=== PATIENT | female | born 1945 | race American Indian/Alaskan Native ===

== ENCOUNTER 2016-11-18 11:59 | Outpatient (CLI) | payer MEDICARE ==
[2016-11-18 12:36] LABS: Blood Urea Nitrogen 18 mg/dL (7-17)
--- NOTE | 2016-11-18 16:03 | Magnetic Resonance Report ---
FINAL REPORT PROCEDURE: MR BRAIN WO/W CON TECHNIQUE: Magnetic resonance imaging of the brain was performed before and after the IV injection of paramagnetic contrast. HISTORY: BENIGN NEOPLASM OF BRAIN COMPARISON: No prior studies are available for comparison. FINDINGS: There is been previous craniotomy left frontal region. Bone flap is in place. There is no evidence of intracranial hemorrhage. No parenchymal hemorrhage, mass lesions or mass effect are identified. No abnormal extra-axial fluid collections or masses are seen. No abnormal areas of enhancement are seen. There is small area of focal encephalomalacia in the left frontal lobe superior laterally. There is mild increased T2 signal in the periventricular and deep white matter suggesting areas of gliosis related to microvascular disease or white matter changes of aging. There is no enhancement. No abnormal areas of restricted diffusion are seen that would suggest an acute ischemic event. The corpus callosum, region of the pituitary fossa and the foramina magnum are unremarkable. Paranasal sinuses and mastoid air cells are clear.. IMPRESSION: Postsurgical changes left frontal region. There has been previous craniotomy. Bone flap is in place. There is a small area of encephalomalacia superior lateral aspect left frontal lobe. No residual mass, abnormal enhancement or hemorrhage is seen. There is mild gliosis. No other abnormalities are seen.
--- NOTE | 2016-11-18 16:10 | Magnetic Resonance Report ---
FINAL REPORT PROCEDURE: MR CERVICAL SPINE WO CON TECHNIQUE: Magnetic resonance imaging of the cervical spine was performed using standard pulse sequences without contrast material. HISTORY: OSTEOARTHRITIS OF CERVICAL SPINE, UNSPEC OSTEOARTHRITIS . Pain. COMPARISON: No prior studies are available for comparison. FINDINGS: The signal intensity and height of the vertebral bodies appears normal. No fracture or subluxation is seen. Region of the foramina magnum appears normal. The prevertebral soft tissues appear normal. There is degenerative signal in disc space narrowing at the C3-C4 level. There is a diffuse posterior disc bulge obscuring the anterior epidural space and resting against the anterior surface of the cervical cord with mild flattening visualized. No focal disc herniation is visualized. The neural foramina appear adequate. There is disc space narrowing and degenerative signal seen in the C4-5 disc space. Diffuse disc bulge is present obscuring the anterior epidural space without deforming the cord. No focal disc herniation is seen. The neural foramina appear adequate. Degenerative signal and disc height loss is visualized at C5-C6 there is no disc herniation or spinal stenosis. The neural foramina appear adequate. Degenerative signal and disc space narrowing is seen at C6-C7 with minimal posterior osteophytic ridging. There is no focal disc herniation or cord compression. The neural foramina on the left appears narrowed, the right appears adequate. Degenerative signal is visualized C7-T1 level without focal disc herniation spinal stenosis or cord compression. The neural foramina appear adequate. IMPRESSION: Diffuse degenerative disc changes are present. This is greatest at the C3-4 and C4-5 levels as described above. There is mild flattening or compression of the cervical cord at the C3-4 level secondary to a diffuse disc bulge. There is also diffuse disc bulge at the C4-5 level resting on the anterior surface of the cord without compressing the cord. The neural foramina on the left at C6-7 appears mildly stenotic. The remainder of the neural foramina appear adequate.
== END 2016-11-18 12:00 | disposition home or self-care (01) ==
LOC: MRI 11:59
PROVIDERS: ATTEND Neurological Surgery
DX: D32.9 Benign neoplasm of meninges, unspecified (principal); M47.12 Other spondylosis with myelopathy, cervical region; G93.89 Other specified disorders of brain; Z98.890 Other specified postprocedural states
CPT/HCPCS: 36415; 70553; 72141; 82565; 84520; A9577

== ENCOUNTER 2019-01-19 15:49 | Inpatient (IN) | payer MEDICARE ==
[2019-01-19] MEDS ORDERED: KEPPRA 1,000 MG/NS 0.75% 100ML 1,000 MG/100 ML BAG IV ONE (16:30)
--- NOTE | 2019-01-19 16:34 | Emergency Department Report ---
ED General Adult HPI - General Chief complaint: Hypoglycemia Stated complaint: CRAMPS Time Seen by Provider: 01/19/19 16:16 Source: patient, EMS (ems notes not available at time of chart dictation), RN notes reviewed, old records reviewed Mode of arrival: Stretcher Limitations: Altered Mental Status, Physical Limitation, Other (patient is awake. Patient follows commands. Patient does not recall what happened to her.) - History of Present Illness Initial comments: This is a 73-year-old female who is known to this provider previously. Past medical history includes hypertension, high cholesterol, diabetes, history of craniotomy, for "benign neoplasm of brain", admitted to this hospital 2017 for generalized weakness, found to be confused, hypoglycemic, and hypothermic. Today, the patient is brought to the hospital by emergency medical services because the patient's daughter reportedly indicated that the patient was not making sense on the phone. Upon EMS arrival, the patient was documented to be altered, with a blood glucose of 36 and diaphoretic. EMS also indicated that the house was very very hot, 90. Patient given 1 amp of D50 in route to the hospital, and repeat blood sugar in the emergency room 233. In the emergency room, the patient is awake, and states "I think I passed out." She does not murmur what happened specifically. Nobody is available at this point in time for information or collateral history. She denies headache, neck pain, chest pain, abdominal pain, shortness of breath. The patient reports that she feels globally weak. She's not sure how long been going on for. She cannot describe exacerbating or relieving factors, radiation. -: Sudden (today) Radiation: other Quality: other Consistency: other Improves with: other Worsens with: other Associated Symptoms: other - Related Data Home Medications Medication Instructions Recorded Confirmed Last Taken Aspirin [Aspirin BABY CHEW TAB] 81 mg PO QDAY 04/08/14 08/04/18 08/03/18 09:00 Cholecalciferol Vit D3 [Vitamin D3 5,000 unit PO QDAY 04/08/14 08/04/18 08/03/18 09:00 1,000 UNIT TAB] Cyanocobalamin (Vitamin B-12) 5,000 mcg SL DAILY 04/08/14 08/04/18 08/03/18 09:00 [Vitamin B-12] Gabapentin 300 mg PO TID 04/08/14 08/04/18 08/03/18 09:00 Losartan [Cozaar] 50 mg PO QDAY 04/08/14 08/04/18 08/03/18 09:00 levETIRAcetam [Keppra TAB] 500 mg PO BID 04/08/14 08/04/18 08/03/18 09:00 AtorvaSTATin [Lipitor] 40 mg PO QDAY 04/26/16 08/04/18 08/03/18 09:00 Allergies Allergy/AdvReac Type Severity Reaction Status Date / Time No Known Allergies Allergy Verified 07/29/14 11:27 ED Review of Systems ROS: Stated complaint: CRAMPS Other details as noted in HPI Comment: Unobtainable due to pts medical conditions Constitutional: malaise, weakness Eyes: denies: eye discharge Respiratory: denies: orthopnea Cardiovascular: denies: chest pain Gastrointestinal: denies: abdominal pain Neurological: weakness, confusion ED Past Medical Hx - Past Medical History Hx Hypertension: Yes (2007) Hx CVA: Yes (2012, 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) Hx Congestive Heart Failure: No Hx Diabetes: Yes Hx Seizures: Yes Hx Kidney Stones: Yes Hx HIV: No - Surgical History Hx Cholecystectomy: Yes ([place] 1989) Additional Surgical History: Tumor removed from brain 2012 - Social History Smoking Status: Never Smoker Substance Use Type: None - Medications Home Medications: Home Medications Medication Instructions Recorded Confirmed Last Taken Type Aspirin [Aspirin BABY CHEW TAB] 81 mg PO QDAY 04/08/14 08/04/18 08/03/18 09:00 History Cholecalciferol Vit D3 [Vitamin D3 5,000 unit PO QDAY 04/08/14 08/04/18 08/03/18 09:00 History 1,000 UNIT TAB] Cyanocobalamin (Vitamin B-12) 5,000 mcg SL DAILY 04/08/14 08/04/18 08/03/18 09:00 History [Vitamin B-12] Gabapentin 300 mg PO TID 04/08/14 08/04/18 08/03/18 09:00 History Losartan [Cozaar] 50 mg PO QDAY 04/08/14 08/04/18 08/03/18 09:00 History levETIRAcetam [Keppra TAB] 500 mg PO BID 04/08/14 08/04/18 08/03/18 09:00 History AtorvaSTATin [Lipitor] 40 mg PO QDAY 04/26/16 08/04/18 08/03/18 09:00 History ED Physical Exam - General Limitations: Physical Limitation General appearance: alert, anxious - Head Head exam: Present: atraumatic, normocephalic - Eye Eye exam: Present: normal appearance, PERRL, EOMI, other (visual acuity intact to finger counting, color perception, reading at a close distance). Absent: nystagmus - ENT ENT exam: Present: normal exam, normal orophraynx, mucous membranes moist, normal external ear exam - Neck Neck exam: Present: normal inspection, full ROM. Absent: tenderness, meningismus - Respiratory Respiratory exam: Present: normal lung sounds bilaterally. Absent: respiratory distress - Cardiovascular Cardiovascular Exam: Present: regular rate, normal rhythm, normal heart sounds. Absent: bradycardia, tachycardia, irregular rhythm, systolic murmur, diastolic murmur, rubs, gallop - GI/Abdominal GI/Abdominal exam: Present: soft. Absent: distended, tenderness, guarding, rebound, rigid, pulsatile mass - Extremities Exam Extremities exam: Present: normal inspection (the patient is able to move her bilateral hands and plantar and dorsiflex her bilateral feet. She appears to be keeping her upper and lower extremities in a locked position. When this provider attempts to range her upper or lower extremities passively, patient is noted to be flexing and resisting passive range of motion. She does this with 4 extremities.), other (2+ pulses noted in the bilateral upper, lower ex tremities. Compartments soft. No long bony tenderness. The pelvis is stable.). Absent: tenderness, pedal edema, joint swelling, calf tenderness - Back Exam Back exam: Present: normal inspection. Absent: tenderness, CVA tenderness (R), paraspinal tenderness, vertebral tenderness - Neurological Exam Neurological exam: Present: alert, oriented X3, other (there is no facial droop. The tongue is midline. Extraocular movements are intact bilaterally. There is 5 out of 5 senior product manager strength in the bilateral upper extremities. Patient has 5 out of 5 plantar flexion of the bilateral lower extremities. Sensation is intac t to light touch bilateral upper, lower extremities. The patient actively resists passive range of motion. She is speaking in complete sentences. She is stuttering. There is no dysarthria. There does not appear to be any aphasia) - Psychiatric Psychiatric exam: Present: anxious - Skin Skin exam: Present: warm, dry, intact, normal color. Absent: rash ED Course Vital Signs 01/19/19 01/19/19 15:55 16:53 Temperature 94 F L Pulse Rate 69 Respiratory 16 Rate Blood Pressure 190/88 O2 Sat by Pulse 99 Oximetry - Reevaluation(s) Reevaluation #1: 01/19/19 16:36 Differential diagnosis, including not limited to: Hypoglycemia, hypothermia, heat stroke, intracranial injury, cervical spine injury, electrolyte derangement, thyroid derangement, bacteremia Assessment and plan: 73-year-old female with history of altered mental status, questionable syncope, reported to be hypoglycemic, with bizarre neurologic examination. We will obtain CT scan of the brain, cervical spine, appropriate screening laboratory studies, x-ray of the chest, urinalysis, EKG, rectal temperature. We will have the patient evaluated by neurology once her initial diagnostics have resulted. She will be given D5 half-normal, and placed on fingersticks every 1 hour. Reevaluation #2: 01/19/19 18:02 CT scan of the brain, cervical spine negative for acute disease. Seen in consultation with neurology, Dr. Pruitt, who is in agreement with the current medical plan. Hospital physician, Dr. Karon Whitten, to admit. ED Medical Decision Making - Lab Data Result diagrams: 01/19/19 16:31 01/19/19 16:31 Vital Signs 01/19/19 15:55 Pulse Rate 69 Respiratory 16 Rate Blood Pressure 190/88 O2 Sat by Pulse 99 Oximetry Lab Results 01/19/19 Range/Units 16:13 POC Glucose 233 H (70-105) Vital Signs 01/19/19 01/19/19 15:55 16:53 Temperature 94 F L Pulse Rate 69 Respiratory 16 Rate Blood Pressure 190/88 O2 Sat by Pulse 99 Oximetry Lab Results 01/19/19 01/19/19 01/19/19 Range/Units 16:13 16:31 16:31 WBC 6.8 (4.5-11.0) K/mm3 RBC 3.97 (3.65-5.03) M/mm3 Hgb 13.0 (10.1-14.3) gm/dl Hct 38.4 (30.3-42.9) % MCV 97 (79-97) fl MCH 33 H (28-32) pg MCHC 34 (30-34) % RDW 13.0 L (13.2-15.2) % Plt Count 279 (140-440) K/mm3 Lymph % (Auto) 10.9 L (13.4-35.0) % [place] % (Auto) 7.9 H (0.0-7.3) % Eos % (Auto) 0.3 (0.0-4.3) % Baso % (Auto) 0.3 (0.0-1.8) % Lymph # 0.7 L (1.2-5.4) K/mm3 Coryell # 0.5 (0.0-0.8) K/mm3 Eos # 0.0 (0.0-0.4) K/mm3 Baso # 0.0 (0.0-0.1) K/mm3 Seg Neutrophils % 80.6 H (40.0-70.0) % Seg Neutrophils # 5.5 (1.8-7.7) K/mm3 PT 12.9 (12.2-14.9) Sec. INR 0.92 (0.87-1.13) APTT 24.3 (24.2-36.6) Sec. Thrombin Time 17.1 (15.1-19.6) Sec. POC Glucose 233 H (70-105) Ammonia (25-60) umol/L 01/19/19 Range/Units 16:31 WBC (4.5-11.0) K/mm3 RBC (3.65-5.03) M/mm3 Hgb (10.1-14.3) gm/dl Hct (30.3-42.9) % MCV (79-97) fl MCH (28-32) pg MCHC (30-34) % RDW (13.2-15.2) % Plt Count (140-440) K/mm3 Lymph % (Auto) (13.4-35.0) % Cory[place] % (Auto) (0.0-7.3) % Eos % (Auto) (0.0-4.3) % Baso % (Auto) (0.0-1.8) % Lymph # (1.2-5.4) K/mm3 Coryell # (0.0-0.8) K/mm3 Eos # (0.0-0.4) K/mm3 Baso # (0.0-0.1) K/mm3 Seg Neutrophils % (40.0-70.0) % Seg Neutrophils # (1.8-7.7) K/mm3 PT (12.2-14.9) Sec. INR (0.87-1.13) APTT (24.2-36.6) Sec. Thrombin Time (15.1-19.6) Sec. POC Glucose (70-105) Ammonia 35.0 (25-60) umol/L - EKG Data -: EKG Interpreted by Ar EKG shows normal: sinus rhythm Rate: normal - EKG Data 01/19/19 18:27 This is a normal sinus rhythm, 69 bpm, normal axis, QTC prolonged, motion artifact, Q waves in the inferior leads, this is an abnormal EKG. This is not consistent with ST elevation myocardial infarction - Radiology Data Radiology results: pending, report reviewed, image reviewed Referring Physician: MARGARITA LI Patient Name: ROSE APPIAH Date of : 1945 Sex: Female Report Date: 2019-01-19 Report Status: [place] [id number] Cat Scan Report Signed Patient: ROSE APPIAH MR#: [id number] : 1945 Acct:[id number] Age/Sex: 73 / F ADM Date: 01/19/19 Loc: ED Attending Dr: Ordering Physician: MARGARITA LI MD Date of Service: 01/19/19 Procedure(s): CT cervical spine wo con Accession Number(s): [id number] cc: MARGARITA LI MD PROCEDURE: CT CERVICAL SPINE WO CON TECHNIQUE: Computerized tomography of the cervical spine was performed from the skull base to T1 without contrast material. CT DOSE LENGTH PRODUCT: 561.2 mGycm HISTORY: fall ams COMPARISONS: MRI cervical spine dated November 18, 2016.. FINDINGS: There is straightening of the normal lordotic curve of the cervical spine. The vertebral heights are maintained. There is loss of height of the disc spaces throughout the cervical spine with relative sparing of the C2-C3 disc. This is similar in appearance to the previous study. There is multiple level degenerative facet change. There is multiple level bony canal and foraminal stenosis secondary to spondylitic change. Visualization of detail the contents of the cervical canal is limited by artifact. There is no evidence of fracture or subluxation. The paraspinous soft tissues are unremarkable. The right lobe of the thyroid is enlarged and heterogeneous in appearance similar in appearance to the previous MRI dated November 18, 2016. IMPRESSION: 1. No evidence of fracture or subluxation. 2. Cervical spondylosis with multiple level canal and foraminal stenosis secondary to spondylitic change. If the patient remains symptomatic, MRI may be helpful. 3. Enlarged heterogeneous appearance of the right lobe of the thyroid similar in appearance to the previous MRI dated November 18, 2016. This document is electronically signed by Mariann Daily MD., Jan 19 2019 05:31:58 PM ET Transcribed By: ED Dictated By: MARIANN DAILY MD Electronically Authenticated By: MARIANN DAILY MD Signed Date/Time: 01/19/19 590 Print Report Referring Physician: MARGARITA LI Patient Name: ROSE APPIAH Date of : 1945 Sex: Female Report Date: 2019-01-19 Report Status: Finalized Findings [address] [address] Cat Scan Report Signed Patient: ROSE APPIAH MR#: [id number] : 1945 Acct:[id number] Age/Sex: 73 / F ADM Date: 01/19/19 Loc: ED Attending Dr: Ordering Physician: MARGARITA LI MD Date of Service: 01/19/19 Procedure(s): CT head/brain wo con Accession Number(s): [id number] cc: MARGARITA LI MD PROCEDURE: CT HEAD/BRAIN WO CON TECHNIQUE: Computerized tomography of the head was performed without contrast material. CT DOSE LENGTH PRODUCT: 805.4 mGycm HISTORY: Stroke symptoms COMPARISONS: None . FINDINGS: Unenhanced CT of the brain was performed and compared to the prior examination of August 13, 2018. These images demonstrate no acute intracranial hemorrhage, extra-axial fluid collection, midline shift or mass effect. The ventricles and basal cisterns are not effaced. There has been a prior left frontal craniotomy and there is focal encephalomalacia The left posterior frontal lobe, likely postproc edural. No acute infarct is seen. MRI may be considered if patient has persistent symptomatology. The mastoid air cells and middle ears appear clear. There is sinus mucosal thickening without acute sinusitis. IMPRESSION: No acute intracranial hemorrhage This document is electronically signed by Craig Ashley MD., Jan 19 2019 05:27:17 PM ET Transcribed By: LOTTIE Dictated By: CRAIG ASHLEY MD Electronically Authenticated By: CRAIG ASHLEY MD Signed Date/Time: 01/19/19 1729 Print Report Referring Physician: MARGARITA LI Patient Name: ROSE APPIAH Date of : 1945 Sex: Female Report Date: 2019-01-19 Report Status: [place] [id number] XRay Report Signed Patient: ROSE APPIAH MR#: [id number] : 1945 Acct:[id number] Age/Sex: 73 / F ADM Date: 01/19/19 Loc: ED Attending Dr: Ordering Physician: MARGARITA LI MD Date of Service: 01/19/19 Procedure(s): XR chest 1V ap Accession Number(s): [id number] cc: MARGARITA LI MD Fluoro Time In Minutes: PROCEDURE: XR CHEST 1V AP TECHNIQUE: Chest radiograph single view. HISTORY: weak ams hypoglycemia COMPARISONS: Chest x-ray dated August 03, 2018 . FINDINGS: There is prominence of the interstitial markings in both lungs similar in appearance to the previous study. There is a small, approximately 7 mm, nodular density projected in the left lateral costop hrenic angle that is similar in appearance to the previous study. Whether or not this is in the lung or bone is unclear. The cardiac silhouette appears to be upper limits of normal size. The thoracic aorta is tortuous. The bony structures are unremarkable. Surgical clips in the right upper quadrant are consistent with previous cholecystectomy. IMPRESSION: 1. No evidence of an acute pulmonary process. 2. Appearance of approximately 7 mm nodular density projected in the left lateral costophrenic angle. Whether or not this is in the lung or bone is unclear. This is similar in appearance to the previous chest x-ray dated August 03, 2018. CT chest may be helpful for further evaluation. This document is electronically signed by Mariann Daily MD., Jan 19 2019 05:06:57 PM ET Transcribed By: ED Dictated By: MARIANN DAILY MD Electronically Authenticated By: MARIANN DAILY MD Signed Date/Time: 01/19/19 8184 Critical care attestation.: If time is entered above; I have spent that time in minutes in the direct care of this critically ill patient, excluding procedure time. ED Disposition Clinical Impression: History of hypoglycemia, Encephalopathy Hypothermia Qualifiers: Encounter type: initial encounter Qualified Code(s): T68.XXXA - Hypothermia, initial encounter Altered mental status Qualifiers: Altered mental status type: unspecified Qualified Code(s): R41.82 - Altered mental status, unspecified Disposition: DC-09 OP ADMIT IP TO THIS HOSP Is pt being admited?: Yes Condition: Fair Referrals: PRIMARY CARE, [Referring] - 3-5 Days
[2019-01-19] MEDS ORDERED: D5/0.45NS 1,000 ML IV SCH (17:00)
[2019-01-19] MEDS ORDERED: ROCEPHIN/NS 1 GM/50 ML 1 GM/50 ML BAG IV ONE (17:02)
[2019-01-19 17:04] LABS: Basophils % (Auto) 0.3 % (0.0-1.8); Eosinophils % (Auto) 0.3 % (0.0-4.3); Hematocrit 38.4 % (30.3-42.9); Lymphocytes # (Auto) 0.7 K/mm3 (1.2-5.4); Lymphocytes % (Auto) 10.9 % (13.4-35.0); Mean Corpuscular HGB Conc 34 % (30-34); Mean Corpuscular Volume 97 fl (79-97); Monocytes # (Auto) 0.5 K/mm3 (0.0-0.8); Monocytes % (Auto) 7.9 % (0.0-7.3); Platelet Count 279 K/mm3 (140-440); Red Blood Count 3.97 M/mm3 (3.65-5.03)
[2019-01-19 17:06] LABS: INR 0.92 (0.87-1.13)
[2019-01-19 17:07] LABS: Partial Thromboplastin Time 24.3 Sec. (24.2-36.6); Thrombin Time 17.1 Sec. (15.1-19.6)
--- NOTE | 2019-01-19 17:08 | XRay Report ---
PROCEDURE: XR CHEST 1V AP TECHNIQUE: Chest radiograph single view. HISTORY: weak ams hypoglycemia COMPARISONS: Chest x-ray dated August 03, 2018 . FINDINGS: There is prominence of the interstitial markings in both lungs similar in appearance to the previous study. There is a small, approximately 7 mm, nodular density projected in the left lateral costophrenic angl e that is similar in appearance to the previous study. Whether or not this is in the lung or bone is unclear. The cardiac silhouette appears to be upper limits of normal size. The thoracic aorta is tortuous. The bony structures are unremarkable. Surgical clips in the right upper quadrant are consistent with previous cholecystectomy. IMPRESSION: 1. No evidence of an acute pulmonary process. 2. Appearance of approximately 7 mm nodular density projected in the left lateral costophrenic angle. Whether or not this is in the lung or bone is unclear. This is similar in appearance to the previous chest x-ray dated August 03, 2018. CT chest may be helpful for further evaluation. This document is electronically signed by Mariann Daily MD., Jan 19 2019 05:06:57 PM ET
[2019-01-19 17:13] LABS: Alanine Aminotransferase 14 units/L (7-56); BUN/Creatinine Ratio 14; Blood Urea Nitrogen 15 mg/dL (7-17); Calcium 8.7 mg/dL (8.4-10.2); Hemolysis Index 3
--- NOTE | 2019-01-19 17:29 | Cat Scan Report ---
PROCEDURE: CT HEAD/BRAIN WO CON TECHNIQUE: Computerized tomography of the head was performed without contrast material. CT DOSE LENGTH PRODUCT: 805.4 mGycm HISTORY: Stroke symptoms COMPARISONS: None . FINDINGS: Unenhanced CT of the brain was performed and compared to the prior examination of August 13, 2018. These images demonstrate no acute intracranial hemorrhage, extra-axial fluid collection, midline shif t or mass effect. The ventricles and basal cisterns are not effaced. There has been a prior left frontal craniotomy and there is focal encephalomalacia The left posterior frontal lobe, likely postprocedural. No acute infarct is seen. MRI may be considered if patient has persistent symptomatology. The mastoid air cells and middle ears appear clear. There is sinus mucosal thickening without acute s inusitis. IMPRESSION: No acute intracranial hemorrhage This document is electronically signed by Craig Ashley MD., Jan 19 2019 05:27:17 PM ET
--- NOTE | 2019-01-19 17:34 | Cat Scan Report ---
PROCEDURE: CT CERVICAL SPINE WO CON TECHNIQUE: Computerized tomography of the cervical spine was performed from the skull base to T1 wit hout contrast material. CT DOSE LENGTH PRODUCT: 561.2 mGycm HISTORY: fall ams COMPARISONS: MRI cervical spine dated November 18, 2016.. FINDINGS: There is straightening of the normal lordotic curve of the cervical spine. The vertebral heights are maintained. There is loss of height of the disc spaces throughout the cervical spine with relative sparing of the C2-C3 disc. This is similar in appearance to the previous study. There is multiple level degenerative facet change. There is multiple level bony canal and foraminal stenosis secondary to spondylitic change. Visualization of detail the contents of the cervical canal is limited by artifact. There is no evidence of fracture or subluxation. The paraspinous soft tissues are unremarkable. The right lobe of the thyroid is enlarged and heterogeneous in appearance similar in appearance to th e previous MRI dated November 18, 2016. IMPRESSION: 1. No evidence of fracture or subluxation. 2. Cervical spondylosis with multiple level canal and foraminal stenosis secondary to spondylitic josue nge. If the patient remains symptomatic, MRI may be helpful. 3. Enlarged heterogeneous appearance of the right lobe of the thyroid similar in appearance to the pr evious MRI dated November 18, 2016. This document is electronically signed by Mariann Daily MD., Jan 19 2019 05:31:58 PM ET
--- NOTE | 2019-01-19 17:47 | Emergency Department Report ---
ED General Adult HPI - General Chief complaint: Hypoglycemia Stated complaint: CRAMPS Time Seen by Provider: 01/19/19 16:16 Source: patient, EMS (ems notes not available at time of chart dictation), RN notes reviewed, old records reviewed Mode of arrival: Stretcher Limitations: Physical Limitation - History of Present Illness Initial comments: [facility] Date of service: 01/19/2019 Impression: 73 year old female with diabetes who presented with altered mental status in the setting of hypoglycemia and hypothermia. Presentation is likely secondary to metabolic/infectious encephalopathy. Recommendations: -metabolic/infectious work-up per primary team -IV fluids -PT/OT -Continue home Keppra 500 mg BID CC: Encephalopathy History of Present Illness: 73 year old female with a history of prior meningioma on Keppra and diabetes who presented to the hospital because of altered mental status. When EMS arrived patient had a glucose of 37 and she had a rectal temp of 94. Diagnostic Testing: CT brain w/o contrast: no acute hemorrhage or large territory stroke. Vital Signs: Reviewed in EMR Exam: Mental Status: Awake, alert, oriented Naming: Intact Repetition: Intact Speech: fluent Cranial Nerves: Pupils: Equal round and reactive to light Extraocular movements: Intact in all cardinal gaze Ptosis: Absent Visual cornelius: Intact to finger counting Facial sensation: Intact to pin and light touch Facial movements: Intact and symmetric Motor Exam: Stiffness in both arms but lifts against gravity. Withdraws from noxious stimuli in both legs Tremor/Abnormal Movements: Resting tremor: Absent Intention tremor: Absent Postural tremor: Absent Sensory Exam: Light touch: Intact Medical Decision Making: - Extensive number of diagnosis or management options are considered above. - Extensive amount of complex data reviewed. - High risk of complication and/or morbidity or mortality are associated with differential diagnostic considerations above. - There may be uncertain outcome and increased probability of prolonged fun ctional impairment or high probability of severe prolonged functional impairment associated with some of these differential diagnosis. Medical Data Reviewed: 1.Data reviewed include clinical labs, radiology, Medical Tests; 2.Tests results discussed w/performing or interpreting physician; 3.Obtaining/reviewing old medical records; 4.Obtaining case history from another source; 5.Independent review of image, tracing or specimen. Patient was informed the Neurology Consult would happen via telehealth (remote video) and consented to receiving care in this manner. Quality: other Improves with: other Worsens with: other Associated Symptoms: other - Related Data Home Medications Medication Instructions Recorded Confirmed Last Taken Aspirin [Aspirin BABY CHEW TAB] 81 mg PO QDAY 04/08/14 08/04/18 08/03/18 09:00 Cholecalciferol Vit D3 [Vitamin D3 5,000 unit PO QDAY 04/08/14 08/04/18 08/03/18 09:00 1,000 UNIT TAB] Cyanocobalamin (Vitamin B-12) 5,000 mcg SL DAILY 04/08/14 08/04/18 08/03/18 09:00 [Vitamin B-12] Gabapentin 300 mg PO TID 04/08/14 08/04/18 08/03/18 09:00 Losartan [Cozaar] 50 mg PO QDAY 04/08/14 08/04/18 08/03/18 09:00 levETIRAcetam [Keppra TAB] 500 mg PO BID 04/08/14 08/04/18 08/03/18 09:00 AtorvaSTATin [Lipitor] 40 mg PO QDAY 04/26/16 08/04/18 08/03/18 09:00 Allergies Allergy/AdvReac Type Severity Reaction Status Date / Time No Known Allergies Allergy Verified 07/29/14 11:27 ED Review of Systems ROS: Stated complaint: CRAMPS Other details as noted in HPI Constitutional: malaise, weakness Eyes: denies: eye discharge Respiratory: denies: orthopnea Cardiovascular: denies: chest pain Gastrointestinal: denies: abdominal pain Neurological: weakness, confusion ED Past Medical Hx - Past Medical History Hx Hypertension: Yes (2007) Hx CVA: Yes (2012, 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) Hx Congestive Heart Failure: No Hx Diabetes: Yes Hx Seizures: Yes Hx Kidney Stones: Yes Hx HIV: No - Surgical History Hx Cholecystectomy: Yes ([place] 1989) Additional Surgical History: Tumor removed from brain 2012 - Social History Smoking Status: Never Smoker Substance Use Type: None - Medications Home Medications: Home Medications Medication Instructions Recorded Confirmed Last Taken Type Aspirin [Aspirin BABY CHEW TAB] 81 mg PO QDAY 04/08/14 08/04/18 08/03/18 09:00 History Cholecalciferol Vit D3 [Vitamin D3 5,000 unit PO QDAY 04/08/14 08/04/18 08/03/18 09:00 History 1,000 UNIT TAB] Cyanocobalamin (Vitamin B-12) 5,000 mcg SL DAILY 04/08/14 08/04/18 08/03/18 0 9:00 History [Vitamin B-12] Gabapentin 300 mg PO TID 04/08/14 08/04/18 08/03/18 09:00 History Losartan [Cozaar] 50 mg PO QDAY 04/08/14 08/04/18 08/03/18 09:00 History levETIRAcetam [Keppra TAB] 500 mg PO BID 04/08/14 08/04/18 08/03/18 09:00 History AtorvaSTATin [Lipitor] 40 mg PO QDAY 04/26/16 08/04/18 08/03/18 09:00 History ED Physical Exam - General Limitations: Physical Limitation General appearance: alert, anxious ED Course Vital Signs 01/19/19 01/19/19 15:55 16:53 Temperature 94 F L Pulse Rate 69 Respiratory 16 Rate Blood Pressure 190/88 O2 Sat by Pulse 99 Oximetry ED Medical Decision Making - Lab Data Result diagrams: 01/19/19 16:31 01/19/19 16:31 Critical care attestation.: If time is entered above; I have spent that time in minutes in the direct care of this critically ill patient, excluding procedure time. ED Disposition Clinical Impression: Encephalopathy, History of hypoglycemia Disposition: OP ADMIT IP TO THIS HOSP Is pt being admited?: Yes Condition: Fair Referrals: PRIMARY CARE,MD [Primary Care Provider] - 3-5 Days
[2019-01-19 19:56] LABS: Bacteria,Urine 1+ /HPF (Negative); Bilirubin,Urine NEG (Negative); Blood,Urine NEG (Negative); Color,Urine Yellow (Yellow); Protein,Urine <15 mg/dL mg/dL (Negative); Urobilinogen,Urine < 2.0 mg/dL (<2.0)
--- NOTE | 2019-01-19 20:10 | History and Physical Report ---
History of Present Illness Date of examination: 01/19/19 Date of admission: 01/19/19 18:05 Chief complaint: Altered sensorium for few hours History of present illness: 73 y/o AAF patient brought to the hospital by emergency medical services because the patient's daughter reportedly indicated that the patient was not making sense on the phone. Upon EMS arrival, the patient was documented to be altered, with a blood glucose of 36 and diaphoretic. EMS also indicated that the house was very very hot, 90F Patient given 1 amp of D50 in route to the hospital, and repeat blood sugar in the emergency room 233. During my examination patient was at baseline,cheerful with daughter at bedside.Apparently took her insulinbut did not eat.Ate some cabbage.Now feels normal Past Medical History Hypertension: Yes (2007) CVA: Yes (2012, 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) Diabetes: Yes Seizures: Yes Kidney Stones: Yes Surgical History Cholecystectomy: Yes ([place] 1989) Additional Surgical History: Tumor removed from brain 2012 Social History Smoking Status: Never Smoker Substance Use Type: None Medications Home Medications: Home Medications Medication Instructions Recorded Confirmed Last Taken Type Aspirin [Aspirin BABY CHEW TAB] 81 mg PO QDAY 04/08/14 08/04/18 08/03/18 09:00 History Cholecalciferol Vit D3 [Vitamin D3 5,000 unit PO QDAY 04/08/14 08/04/18 08/03/18 09:00 History 1,000 UNIT TAB] Cyanocobalamin (Vitamin B-12) 5,000 mcg SL DAILY 04/08/14 08/04/18 08/03/18 09:00 History [Vitamin B-12] Gabapentin 300 mg PO TID 04/08/14 08/04/18 08/03/18 09:00 History Losartan [Cozaar] 50 mg PO QDAY 04/08/14 08/04/18 08/03/18 09:00 History levETIRAcetam [Keppra TAB] 500 mg PO BID 04/08/14 08/04/18 08/03/18 09:00 History AtorvaSTATin [Lipitor] 40 mg PO QDAY 04/26/16 08/04/18 08/03/18 09:00 History Review of Systems ROS: Stated complaint: CRAMPS Other details as noted in HPI Comment: Unobtainable due to pts medical conditions Constitutional: malaise, weakness Eyes: denies: eye discharge Respiratory: denies: orthopnea Cardiovascular: denies: chest pain Gastrointestinal: denies: abdominal pain Neurological: weakness, confusion Medications and Allergies Allergies Allergy/AdvReac Type Severity Reaction Status Date / Time No Known Allergies Allergy Verified 07/29/14 11:27 Home Medications Medication Instructions Recorded Confirmed Last Taken Type Aspirin [Aspirin BABY CHEW TAB] 81 mg PO QDAY 04/08/14 08/04/18 08/03/18 09:00 History Cholecalciferol Vit D3 [Vitamin D3 5,000 unit PO QDAY 04/08/14 08/04/18 08/03/18 09:00 History 1,000 UNIT TAB] Cyanocobalamin (Vitamin B-12) 5,000 mcg SL DAILY 04/08/14 08/04/18 08/03/18 09:00 History [Vitamin B-12] Gabapentin 300 mg PO TID 04/08/14 08/04/18 08/03/18 09:00 History Losartan [Cozaar] 50 mg PO QDAY 04/08/14 08/04/18 08/03/18 09:00 History levETIRAcetam [Keppra TAB] 500 mg PO BID 04/08/14 08/04/18 08/03/18 09:00 History AtorvaSTATin [Lipitor] 40 mg PO QDAY 04/26/16 08/04/18 08/03/18 09:00 History Active Meds: Active Medications Dextrose/Sodium Chloride (D5/0.45ns) 1,000 mls @ 0 mls/hr IV DIRECT CORRINE Last Admin: 01/19/19 18:13 Dose: 999 mls/hr Documented by: Exam - Constitutional Vitals: Temp Pulse Resp BP Pulse Ox 96.2 F L 68 16 167/81 97 01/19/19 19:33 01/19/19 20:04 01/19/19 20:04 01/19/19 20:04 01/19/19 20:04 General appearance: Present: no acute distress, well-nourished - EENT Eyes: Present: PERRL ENT: hearing intact, clear oral mucosa - Neck Neck: Present: supple, normal ROM - Respiratory Respiratory effort: normal Respiratory: bilateral: CTA - Cardiovascular Heart rate: 78 Rhythm: regular Heart Sounds: Present: S1 & S2. Absent: rub, click - Extremities Extremities: no ischemia, pulses intact, pulses symmetrical, No edema Peripheral Pulses: within normal limits - Abdominal General gastrointestinal: Present: soft, non-tender, non-distended, normal bowel sounds Female genitourinary: Present: normal - Integumentary Integumentary: Present: clear, warm, dry - Musculoskeletal Musculoskeletal: gait normal, strength equal bilaterally - Psychiatric Psychiatric: appropriate mood/affect, intact judgment & insight - Neurologic Neurologic: CNII-XII intact, moves all extremities - Allied Health Allied health notes reviewed: nursing, case management Results - Labs CBC & Chem 7: 01/20/19 02:15 01/20/19 02:15 Labs: Laboratory Last Values WBC 6.8 K/mm3 (4.5-11.0) 01/19/19 16:31 RBC 3.97 M/mm3 (3.65-5.03) 01/19/19 16:31 Hgb 13.0 gm/dl (10.1-14.3) 01/19/19 16:31 Hct 38.4 % (30.3-42.9) 01/19/19 16:31 MCV 97 fl (79-97) 01/19/19 16:31 MCH 33 pg (28-32) H 01/19/19 16:31 MCHC 34 % (30-34) 01/19/19 16:31 RDW 13.0 % (13.2-15.2) L 01/19/19 16:31 Plt Count 279 K/mm3 (140-440) 01/19/19 16:31 Lymph % (Auto) 10.9 % (13.4-35.0) L 01/19/19 16:31 [place] % (Auto) 7.9 % (0.0-7.3) H 01/19/19 16:31 Eos % (Auto) 0.3 % (0.0-4.3) 01/19/19 16:31 Baso % (Auto) 0.3 % (0.0-1.8) 01/19/19 16:31 Lymph # 0.7 K/mm3 (1.2-5.4) L 01/19/19 16:31 [place] # 0.5 K/mm3 (0.0-0.8) 01/19/19 16:31 Eos # 0.0 K/mm3 (0.0-0.4) 01/19/19 16:31 Baso # 0.0 K/mm3 (0.0-0.1) 01/19/19 16:31 Seg Neutrophils % 80.6 % (40.0-70.0) H 01/19/19 16:31 Seg Neutrophils # 5.5 K/mm3 (1.8-7.7) 01/19/19 16:31 PT 12.9 Sec. (12.2-14.9) 01/19/19 16:31 INR 0.92 (0.87-1.13) 01/19/19 16:31 APTT 24.3 Sec. (24.2-36.6) 01/19/19 16:31 17.1 Sec. (15.1-19.6) 01/19/19 16:31 Sodium 137 mmol/L (137-145) 01/19/19 16:31 Potassium 4.5 mmol/L (3.6-5.0) 01/19/19 16:31 Chloride 99.8 mmol/L (98-107) 01/19/19 16:31 Carbon Dioxide 23 mmol/L (22-30) 01/19/19 16:31 19 mmol/L 01/19/19 16:31 BUN 15 mg/dL (7-17) 01/19/19 16:31 1.1 mg/dL (0.7-1.2) 01/19/19 16:31 Estimated GFR 59 ml/min 01/19/19 16:31 14 % 01/19/19 16:31 Glucose 245 mg/dL (65-100) H 01/19/19 16:31 POC Glucose 408 (70-105) H 01/19/19 18:48 Lactic Acid 2.80 mmol/L (0.7-2.0) H* 01/19/19 19:20 Calcium 8.7 mg/dL (8.4-10.2) 01/19/19 16:31 0.40 mg/dL (0.1-1.2) 01/19/19 16:31 AST 16 units/L (5-40) 01/19/19 16:31 ALT 14 units/L (7-56) 01/19/19 16:31 184 units/L (35-129) H 01/19/19 16:31 35.0 umol/L (25-60) 01/19/19 16:31 < 0.010 ng/mL (0.00-0.029) 01/19/19 16:31 7.6 g/dL (6.3-8.2) 01/19/19 16:31 4.0 g/dL (3.9-5) 01/19/19 16:31 1.1 % 01/19/19 16:31 TSH 2.210 mlU/mL (0.270-4.200) 01/19/19 16:31 Free T4 0.92 ng/dL (0.76-1.46) 01/19/19 16:31 Neg (Negative) 01/19/19 Unknown 2.0 /HPF (0.0-6.0) 01/19/19 Unknown U Epithel Cells (Auto) 1.0 /HPF (0-13.0) 01/19/19 Unknown Salicylates < 0.3 mg/dL (2.8-20.0) L 01/19/19 16:31 Acetaminophen < 5.0 ug/mL (10.0-30.0) L 01/19/19 16:31 Plasma/Serum Alcohol < 0.01 % (0-0.07) 01/19/19 16:31 - Imaging and Cardiology EKG: report reviewed (NSR ) CT Scan - head: report reviewed (NAF) Imaging and Cardiology: CXR IMPRESSION: 1. No evidence of an acute pulmonary process. 2. Appearance of approximately 7 mm nodular density projected in the left lateral costophrenic angle. Whether or not this is in the lung or bone is unclear. This is similar in appearance to the previous chest x-ray dated August 03, 2018. CT chest may be helpful for further evaluation. CT C spine IMPRESSION: 1. No evidence of fracture or subluxation. 2. Cervical spondylosis with multiple level canal and foraminal stenosis secondary to spondylitic change. If the patient remains symptomatic, MRI may be helpful. 3. Enlarged heterogeneous appearance of the right lobe of the thyroid similar in appearance to the previous MRI dated November 18, 2016. Assessment and Plan Advance Directives: Yes (Full code) VTE prophylaxis?: Chemical Plan of care discussed with patient/family: Yes - Patient Problems (1) Encephalopathy Current Visit: Yes Status: Acute Plan to address problem: Sec to Hypoglycemia Parsisted for 2 to 3 ours Now resolved (2) Hypoglycemia Current Visit: Yes Status: Acute Plan to address problem: Sec to insulin and not eating (3) Sepsis Current Visit: Yes Status: Acute Plan to address problem: Unlokely Elevated Lactic acid sec to Hypoglycemia and Hypothermia Patient at baseline Alert and cheerful Empiric Rocephin No source of infection Descalate tomorrow if necessary (4) IDDM (insulin dependent diabetes mellitus) Current Visit: Yes Status: Chronic Plan to address problem: Coverage for now (5) HTN (hypertension) Current Visit: Yes Status: Chronic Qualifiers: Hypertension type: essential hypertension Qualified Code(s): I10 - Essential (primary) hypertension Plan to address problem: Cont antihypertensives (6) Hypothermia Current Visit: Yes Status: Acute Qualifiers: Encounter type: initial encounter Qualified Code(s): T68.XXXA - Hypothermia, initial encounter Plan to address problem: Resolved Sec to Hypoglycemia (7) Pulmonary nodule Current Visit: Yes Status: Chronic Plan to address problem: Stable No CT chest ordered This radiologist has propensity to overread and suggest further studies Will defer to primary team (8) Peripheral neuropathy Current Visit: Yes Status: Chronic Qualifiers: Peripheral neuropathy type: polyneuropathy, unspecified Qualified Code(s): G62.9 - Polyneuropathy, unspecified Plan to address problem: COnt Gabapentin (9) DVT prophylaxis Current Visit: Yes Status: Acute Plan to address problem: On Lovenox and GI prophylaxis
[2019-01-19] MEDS ORDERED: ZOFRAN IV PRN (20:13)
[2019-01-19] MEDS ORDERED: SODIUM CHLORIDE FLUSH SYRINGE 10 ML IV PRN (20:13)
[2019-01-19] MEDS ORDERED: TYLENOL PO PRN (20:13)
[2019-01-19] MEDS ORDERED: PERCOCET 5/325 PO PRN (20:14)
[2019-01-19] MEDS ORDERED: REGLAN IV PRN (20:14)
[2019-01-19] MEDS ORDERED: MORPHINE IV PRN (20:14)
[2019-01-19] MEDS ORDERED: LOSARTAN 50 MG PO SCH (20:15)
[2019-01-19] MEDS ORDERED: CYANOCOBALAMIN 5000 MCG SL SCH (20:15)
[2019-01-19] MEDS ORDERED: D5NS 1,000 ML IV SCH (21:00)
[2019-01-19] MEDS: PEPCID IV SCH (21:57)
[2019-01-19] MEDS: KEPPRA PO SCH (21:58)
[2019-01-19] MEDS: COZAAR PO SCH (21:59)
[2019-01-19] MEDS: BABY ASPIRIN PO SCH (21:59)
[2019-01-19] MEDS: VITAMIN D3 PO SCH (21:59)
[2019-01-19] MEDS ORDERED: PEPCID IV SCH (22:00)
[2019-01-19] MEDS: SODIUM CHLORIDE FLUSH SYRINGE 10 ML IV SCH (22:00)
[2019-01-19] MEDS: HumaLOG SUB-Q SCH (22:07)
[2019-01-20 02:24] LABS: Basophils % (Auto) 0.5 % (0.0-1.8); Eosinophils # (Auto) 0.1 K/mm3 (0.0-0.4); Eosinophils % (Auto) 0.8 % (0.0-4.3); Hemoglobin 12.7 gm/dl (10.1-14.3); Lymphocytes # (Auto) 1.9 K/mm3 (1.2-5.4); Lymphocytes % (Auto) 27.9 % (13.4-35.0); Mean Corpuscular HGB Conc 33 % (30-34); Mean Corpuscular Volume 98 fl (79-97); Monocytes # (Auto) 0.7 K/mm3 (0.0-0.8); Monocytes % (Auto) 10.6 % (0.0-7.3); Platelet Count 280 K/mm3 (140-440); Red Blood Count 3.88 M/mm3 (3.65-5.03); Red Cell Distribution Width 13.4 % (13.2-15.2)
[2019-01-20 02:47] LABS: Alanine Aminotransferase 13 units/L (7-56); Albumin 3.8 g/dL (3.9-5); BUN/Creatinine Ratio 12; Blood Urea Nitrogen 11 mg/dL (7-17); Calcium 8.8 mg/dL (8.4-10.2); Hemolysis Index 36
[2019-01-20] MEDS: HumaLOG SUB-Q SCH ×4 (07:47→21:47)
[2019-01-20] MEDS: VITAMIN D3 PO SCH ×2 (09:42→10:29)
[2019-01-20] MEDS: BABY ASPIRIN PO SCH (09:43)
[2019-01-20] MEDS: NEURONTIN PO SCH ×3 (09:43→21:40)
[2019-01-20] MEDS: PEPCID IV SCH ×2 (09:44→21:41)
[2019-01-20] MEDS: KEPPRA PO SCH ×2 (09:44→21:40)
[2019-01-20] MEDS: COZAAR PO SCH (09:44)
[2019-01-20] MEDS: ROCEPHIN/NS 2 GM/100 ML 2 GM/100 ML BAG IV SCH ×2 (10:31→13:45)
--- NOTE | 2019-01-20 11:27 | Progress Note ---
Assessment and Plan Assessment and plan: 73-year-old woman who was brought by her daughter because she was not making sense on the phone. She had altered mentation, she was found to be hypoglycemic with glucose of 36 and diaphoretic. PMH; hypertension, CVA, history of brain surgery for tumor removal, diabetes, seizure disorder, nephrolithiasis takes insulin 70/30 at home 25 units in am, 10 units in pm Hypoglycemia in a type 2 DM A1c is 10.8, insulin sliding scale, dextrose as needed, TSH within normal limits SIRS hypothermia, LA, likely due to hypoglycemia, UA, chest x-ray negative, blood cultures negative to date HTN cont BP meds Periphearl neuropathy cont gabapentin dvt ppx -lovenox History Interval history: Review of systems Constitutional: No fevers, no malaise, no joint pains CVS: No chest pain, no orthopnea, no pedal edema GI: No abdominal pain, no diarrhea, no vomiting, no constipation Respiratory: No shortness of breath, no wheezing, no coughing Hospitalist Physical - Physical exam Narrative exam: General.: Appears well, no distress, nontoxic HEENT: Moist mucous membranes, extraocular muscles intact, no lymphadenopathy Neck: supple Cardiac: S1-S2 heard Lungs: clear to auscultation bilaterally Abdomen: soft , nontender, nondistended, bowel sounds positive Extremities: no edema clubbing or cyanosis Skin: no rash or lesions Neurologic: no gross focal deficits Psych: calm, and cooperative - Constitutional Vitals: Temp Pulse Resp BP Pulse Ox 97.8 F 76 18 163/81 95 01/20/19 10:52 01/20/19 10:52 01/20/19 10:52 01/20/19 10:52 01/20/19 10:52 General appearance: Present: no acute distress, well-nourished Results - Labs CBC & Chem 7: 01/20/19 02:15 01/20/19 02:15 Labs: Laboratory Last Values WBC 6.8 K/mm3 (4.5-11.0) 01/20/19 02:15 RBC 3.88 M/mm3 (3.65-5.03) 01/20/19 02:15 Hgb 12.7 gm/dl (10.1-14.3) 01/20/19 02:15 Hct 38.0 % (30.3-42.9) 01/20/19 02:15 MCV 98 fl (79-97) H 01/20/19 02:15 MCH 33 pg (28-32) H 01/20/19 02:15 MCHC 33 % (30-34) 01/20/19 02:15 RDW 13.4 % (13.2-15.2) 01/20/19 02:15 Plt Count 280 K/mm3 (140-440) 01/20/19 02:15 Lymph % (Auto) 27.9 % (13.4-35.0) 01/20/19 02:15 [place] % (Auto) 10.6 % (0.0-7.3) H 01/20/19 02:15 Eos % (Auto) 0.8 % (0.0-4.3) 01/20/19 02:15 Baso % (Auto) 0.5 % (0.0-1.8) 01/20/19 02:15 Lymph # 1.9 K/mm3 (1.2-5.4) 01/20/19 02:15 [place] # 0.7 K/mm3 (0.0-0.8) 01/20/19 02:15 Eos # 0.1 K/mm3 (0.0-0.4) 01/20/19 02:15 Baso # 0.0 K/mm3 (0.0-0.1) 01/20/19 02:15 Seg Neutrophils % 60.2 % (40.0-70.0) 01/20/19 02:15 Seg Neutrophils # 4.1 K/mm3 (1.8-7.7) 01/20/19 02:15 PT 12.9 Sec. (12.2-14.9) 01/19/19 16:31 INR 0.92 (0.87-1.13) 01/19/19 16:31 APTT 24.3 Sec. (24.2-36.6) 01/19/19 16:31 17.1 Sec. (15.1-19.6) 01/19/19 16:31 Sodium 142 mmol/L (137-145) 01/20/19 02:15 Potassium 4.1 mmol/L (3.6-5.0) 01/20/19 02:15 Chloride 103.0 mmol/L (98-107) 01/20/19 02:15 Carbon Dioxide 24 mmol/L (22-30) 01/20/19 02:15 19 mmol/L 01/20/19 02:15 BUN 11 mg/dL (7-17) 01/20/19 02:15 0.9 mg/dL (0.7-1.2) 01/20/19 02:15 Estimated GFR > 60 ml/min 01/20/19 02:15 12 % 01/20/19 02:15 Glucose 236 mg/dL (65-100) H 01/20/19 02:15 POC Glucose 204 (70-105) H 01/20/19 10:54 10.8 % (4-6) H 01/19/19 20:45 Lactic Acid 1.50 mmol/L (0.7-2.0) 01/20/19 07:01 Calcium 8.8 mg/dL (8.4-10.2) 01/20/19 02:15 0.30 mg/dL (0.1-1.2) 01/20/19 02:15 AST 16 units/L (5-40) 01/20/19 02:15 ALT 13 units/L (7-56) 01/20/19 02:15 172 units/L (35-129) H 01/20/19 02:15 35.0 umol/L (25-60) 01/19/19 16:31 < 0.010 ng/mL (0.00-0.029) 01/19/19 16:31 7.2 g/dL (6.3-8.2) 01/20/19 02:15 3.8 g/dL (3.9-5) L 01/20/19 02:15 1.1 % 01/20/19 02:15 TSH 2.210 mlU/mL (0.270-4.200) 01/19/19 16:31 Free T4 0.92 ng/dL (0.76-1.46) 01/19/19 16:31 Yellow (Yellow) 01/19/19 Unknown Clear (Clear) 01/19/19 Unknown 5.0 (5.0-7.0) 01/19/19 Unknown Ur Specific [place] 1.012 (1.003-1.030) 01/19/19 Unknown <15 mg/dl mg/dL (Negative) 01/19/19 Unknown >=500 mg/dL (Negative) 01/19/19 Unknown Neg mg/dL (Negative) 01/19/19 Unknown Neg (Negative) 01/19/19 Unknown Neg (Negative) 01/19/19 Unknown Neg (Negative) 01/19/19 Unknown < 2.0 mg/dL (<2.0) 01/19/19 Unknown Ur Leukocyte Esterase Neg (Negative) 01/19/19 Unknown 3.0 /HPF (0.0-6.0) 01/19/19 Unknown 2.0 /HPF (0.0-6.0) 01/19/19 Unknown U Epithel Cells (Auto) 1.0 /HPF (0-13.0) 01/19/19 Unknown 1+ /HPF (Negative) 01/19/19 Unknown Salicylates < 0.3 mg/dL (2.8-20.0) L 01/19/19 16:31 Acetaminophen < 5.0 ug/mL (10.0-30.0) L 01/19/19 16:31 Plasma/Serum Alcohol < 0.01 % (0-0.07) 01/19/19 16:31 Active Medications - Current Medications Current Medications: Generic Name Dose Route Start Last Admin Trade Name Freq PRN Reason Stop Dose Admin Acetaminophen 650 mg 01/19/19 20:13 Tylenol PO Q4H PRN Pain MILD(1-3)/Fever >100.5/AGRAWAL Aspirin 81 mg 01/19/19 21:00 01/20/19 09:43 Baby Aspirin PO 81 mg QDAY CORRINE Administration Atorvastatin Calcium 40 mg 01/19/19 20:15 01/20/19 09:44 Lipitor PO 40 mg QDAY CORRINE Administration Cholecalciferol 5,000 unit 01/19/19 21:00 01/20/19 10:29 Vitamin D3 PO 5,000 unit QDAY CORRINE Administration Famotidine 10 mg 01/19/19 22:00 01/20/19 09:44 Pepcid IV 10 mg BID CORRINE Administration Gabapentin 300 mg 01/20/19 08:00 01/20/19 09:43 Neurontin PO 300 mg TID CORRINE Administration Ceftriaxone Sodium 2 gm in 100 mls @ 200 mls/hr 01/20/19 06:54 01/20/19 10:31 Rocephin/Ns 2 Gm/100 Ml IV 200 mls/hr Q24HR CORRINE Administration Protocol Insulin Human Lispro 0 unit 01/19/19 22:00 01/20/19 11:26 Humalog SUB-Q 2 unit Q4HR CORRINE Administration Protocol Levetiracetam 500 mg 01/19/19 22:00 01/20/19 09:44 Keppra PO 500 mg BID CORRINE Administration Losartan Potassium 50 mg 01/19/19 21:00 01/20/19 09:44 Cozaar PO 50 mg QDAY CORRINE Administration Metoclopramide HCl 10 mg 01/19/19 20:14 Reglan IV Q6H PRN Nausea And Vomiting Miscellaneous Medication 5,000 mcg 01/19/19 20:15 Cyanocobalamin (Vitamin B-12) [Vitamin B-12] SL DAILY [facility] Morphine Sulfate 2 mg 01/19/19 20:14 Morphine IV Q4H PRN Pain, Moderate (4-6) Ondansetron HCl 4 mg 01/19/19 20:13 Zofran IV Q8H PRN Nausea And Vomiting Oxycodone/Acetaminophen 1 tab 01/19/19 20:14 01/20/19 00:58 Percocet 5/325 PO 1 tab Q6H PRN Administration Pain, Moderate (4-6) Sodium Chloride 10 ml 01/19/19 22:00 01/19/19 22:00 Sodium Chloride Flush Syringe 10 Ml IV 10 ml BID CORRINE Administration Sodium Chloride 10 ml 01/19/19 20:13 Sodium Chloride Flush Syringe 10 Ml IV PRN PRN LINE FLUSH Nutrition/Malnutrition Assess - Dietary Evaluation Nutrition/Malnutrition Findings: Nutrition Notes Start: 01/20/19 09:59 Freq: Status: Active Protocol: Document 01/20/19 09:59 LP (Rec: 01/20/19 09:59 LP [id number]) Nutrition Notes 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
[2019-01-20] MEDS: SODIUM CHLORIDE FLUSH SYRINGE 10 ML IV SCH ×2 (13:47→22:08)
--- NOTE | 2019-01-20 17:02 | Cat Scan Report ---
PROCEDURE: CT CHEST WO CON TECHNIQUE: Axial images obtained without intravenous contrast. Sagittal and coronal reformatted imag es obtained HISTORY: pulmonary nodule COMPARISONS: Chest x-ray January 19, 2019 FINDINGS: 1.8 cm right thyroid nodule with calcification. Atherosclerotic calcification of the aorta. No aneurysmal dilatation There is bilateral axillary adenopathy. Alkylation Operator left axillary lymph node image 22; measurement 2.3 x 0.8 cm. Multiple bilateral axillary lymph nodes present. No mediastinal or hilar adenopathy Pulmonary trunk normal caliber. Heart size top normal. No pericardial effusion. No significant pleural effusion. Bibasilar airspace disease compatible with atelectasis. Appearance of pulmonary nodule on chest x-ray is likely related to basilar airspace disease. No suspect pulmonary nodule identified Upper abdomen demonstrates no free air. No free fluid. No acute inflammatory change No acute bony abnormality identified. IMPRESSION: Bibasilar airspace disease compatible with atelectasis. This likely accounts for appearance of pulmon yesenia nodule on chest x-ray.. Bilateral axillary adenopathy. Nonspecific finding. 1.8 cm right thyroid nodule with calcification. Follow-up thyroid ultrasound recommended. This document is electronically signed by Haresh Tapia MD., Jan 20 2019 05:00:00 PM ET
[2019-01-20] MEDS ORDERED: LOVENOX SUB-Q SCH (22:00)
[2019-01-20] MEDS ORDERED: LANTUS SUB-Q SCH (22:00)
[2019-01-20] MEDS ORDERED: APRESOLINE IV PRN (23:32)
[2019-01-21] MEDS: HumaLOG SUB-Q SCH ×3 (08:21→17:41)
[2019-01-21] MEDS: NEURONTIN PO SCH ×2 (08:23→14:32)
[2019-01-21] MEDS: ROCEPHIN/NS 2 GM/100 ML 2 GM/100 ML BAG IV SCH (09:08)
[2019-01-21] MEDS: VITAMIN D3 PO SCH (09:09)
[2019-01-21] MEDS: PEPCID IV SCH (09:09)
[2019-01-21] MEDS: KEPPRA PO SCH (09:10)
[2019-01-21] MEDS: BABY ASPIRIN PO SCH (09:10)
[2019-01-21] MEDS: SODIUM CHLORIDE FLUSH SYRINGE 10 ML IV SCH (09:10)
[2019-01-21] MEDS: COZAAR PO SCH (09:10)
[2019-01-21 14:02] VITALS: BP 143/78
[2019-01-21] MEDS ORDERED: LANTUS SUB-Q SCH (14:20)
--- NOTE | 2019-01-21 14:20 | Progress Note ---
Assessment and Plan Assessment and plan: 73-year-old woman who was brought by her daughter because she was not making sense on the phone. She had altered mentation, she was found to be hypoglycemic with glucose of 36 and diaphoretic. PMH; hypertension, CVA, history of brain surgery for tumor removal, diabetes, seizure disorder, nephrolithiasis takes insulin 70/30 at home 25 units in am, 10 units in pm which she is taking OTC without being managed by a doctor Hypoglycemia in a type 2 DM with uncontrolled dm A1c is 10.8, insulin sliding scale, dextrose as needed, TSH within normal limits -started on lantus, likely to dc on lantus tomorrow SIRS hypothermia, LA, likely due to hypoglycemia, UA, chest x-ray negative, blood cultures negative to date HTN cont BP meds Periphearl neuropathy cont gabapentin dvt ppx -lovenox Hospitalist Physical - Constitutional Vitals: Temp Pulse Resp BP Pulse Ox 98.2 F 79 18 143/78 95 01/21/19 14:01 01/21/19 14:01 01/21/19 09:00 01/21/19 14:01 01/21/19 09:00 General appearance: Present: no acute distress, well-nourished Results - Labs CBC & Chem 7: 01/20/19 02:15 01/20/19 02:15 Labs: Laboratory Last Values WBC 6.8 K/mm3 (4.5-11.0) 01/20/19 02:15 RBC 3.88 M/mm3 (3.65-5.03) 01/20/19 02:15 Hgb 12.7 gm/dl (10.1-14.3) 01/20/19 02:15 Hct 38.0 % (30.3-42.9) 01/20/19 02:15 MCV 98 fl (79-97) H 01/20/19 02:15 MCH 33 pg (28-32) H 01/20/19 02:15 MCHC 33 % (30-34) 01/20/19 02:15 RDW 13.4 % (13.2-15.2) 01/20/19 02:15 Plt Count 280 K/mm3 (140-440) 01/20/19 02:15 Lymph % (Auto) 27.9 % (13.4-35.0) 01/20/19 02:15 [place] % (Auto) 10.6 % (0.0-7.3) H 01/20/19 02:15 Eos % (Auto) 0.8 % (0.0-4.3) 01/20/19 02:15 Baso % (Auto) 0.5 % (0.0-1.8) 01/20/19 02:15 Lymph # 1.9 K/mm3 (1.2-5.4) 01/20/19 02:15 [place] # 0.7 K/mm3 (0.0-0.8) 01/20/19 02:15 Eos # 0.1 K/mm3 (0.0-0.4) 01/20/19 02:15 Baso # 0.0 K/mm3 (0.0-0.1) 01/20/19 02:15 Seg Neutrophils % 60.2 % (40.0-70.0) 01/20/19 02:15 Seg Neutrophils # 4.1 K/mm3 (1.8-7.7) 01/20/19 02:15 PT 12.9 Sec. (12.2-14.9) 01/19/19 16:31 INR 0.92 (0.87-1.13) 01/19/19 16:31 APTT 24.3 Sec. (24.2-36.6) 01/19/19 16:31 17.1 Sec. (15.1-19.6) 01/19/19 16:31 Sodium 142 mmol/L (137-145) 01/20/19 02:15 Potassium 4.1 mmol/L (3.6-5.0) 01/20/19 02:15 Chloride 103.0 mmol/L (98-107) 01/20/19 02:15 Carbon Dioxide 24 mmol/L (22-30) 01/20/19 02:15 19 mmol/L 01/20/19 02:15 BUN 11 mg/dL (7-17) 01/20/19 02:15 0.9 mg/dL (0.7-1.2) 01/20/19 02:15 Estimated GFR > 60 ml/min 01/20/19 02:15 12 % 01/20/19 02:15 Glucose 236 mg/dL (65-100) H 01/20/19 02:15 POC Glucose 255 (70-105) H 01/21/19 11:32 10.8 % (4-6) H 01/19/19 20:45 Lactic Acid 1.50 mmol/L (0.7-2.0) 01/20/19 07:01 Calcium 8.8 mg/dL (8.4-10.2) 01/20/19 02:15 0.30 mg/dL (0.1-1.2) 01/20/19 02:15 AST 16 units/L (5-40) 01/20/19 02:15 ALT 13 units/L (7-56) 01/20/19 02:15 172 units/L (35-129) H 01/20/19 02:15 35.0 umol/L (25-60) 01/19/19 16:31 < 0.010 ng/mL (0.00-0.029) 01/19/19 16:31 7.2 g/dL (6.3-8.2) 01/20/19 02:15 3.8 g/dL (3.9-5) L 01/20/19 02:15 1.1 % 01/20/19 02:15 TSH 2.210 mlU/mL (0.270-4.200) 01/19/19 16:31 Free T4 0.92 ng/dL (0.76-1.46) 01/19/19 16:31 Yellow (Yellow) 01/19/19 Unknown Clear (Clear) 01/19/19 Unknown 5.0 (5.0-7.0) 01/19/19 Unknown Ur Specific [place] 1.012 (1.003-1.030) 01/19/19 Unknown <15 mg/dl mg/dL (Negative) 01/19/19 Unknown >=500 mg/dL (Negative) 01/19/19 Unknown Neg mg/dL (Negative) 01/19/19 Unknown Neg (Negative) 01/19/19 Unknown Neg (Negative) 01/19/19 Unknown Neg (Negative) 01/19/19 Unknown < 2.0 mg/dL (<2.0) 01/19/19 Unknown Ur Leukocyte Esterase Neg (Negative) 01/19/19 Unknown 3.0 /HPF (0.0-6.0) 01/19/19 Unknown 2.0 /HPF (0.0-6.0) 01/19/19 Unknown U Epithel Cells (Auto) 1.0 /HPF (0-13.0) 01/19/19 Unknown 1+ /HPF (Negative) 01/19/19 Unknown Salicylates < 0.3 mg/dL (2.8-20.0) L 01/19/19 16:31 Acetaminophen < 5.0 ug/mL (10.0-30.0) L 01/19/19 16:31 Plasma/Serum Alcohol < 0.01 % (0-0.07) 01/19/19 16:31 Active Medications - Current Medications Current Medications: Generic Name Dose Route Start Last Admin Trade Name Freq PRN Reason Stop Dose Admin Acetaminophen 650 mg 01/19/19 20:13 Tylenol PO Q4H PRN Pain MILD(1-3)/Fever >100.5/AGRAWAL Aspirin 81 mg 01/19/19 21:00 01/21/19 09:10 Baby Aspirin PO 81 mg QDAY CORRINE Administration Atorvastatin Calcium 40 mg 01/19/19 20:15 01/21/19 09:10 Lipitor PO 40 mg QDAY CORRINE Administration Cholecalciferol 5,000 unit 01/19/19 21:00 01/21/19 09:09 Vitamin D3 PO 5,000 unit QDAY CORRINE Administration Enoxaparin Sodium 40 mg 01/20/19 22:00 01/20/19 21:41 Lovenox SUB-Q 40 mg QDAY@2200 CORRINE Administration Famotidine 10 mg 01/19/19 22:00 01/21/19 09:09 Pepcid IV 10 mg BID CORRINE Administration Gabapentin 300 mg 01/20/19 08:00 01/21/19 08:23 Neurontin PO 300 mg TID CORRINE Administration Hydralazine HCl 10 mg 01/20/19 23:32 Apresoline IV Q4HR PRN Blood Pressure Ceftriaxone Sodium 2 gm in 100 mls @ 200 mls/hr 01/20/19 06:54 01/21/19 09:08 Rocephin/Ns 2 Gm/100 Ml IV 200 mls/hr Q24HR CORRINE Administration Protocol Insulin Glargine 5 units 01/20/19 22:00 01/20/19 21:40 Lantus SUB-Q 5 units QHS CORRINE Administration Insulin Human Lispro 0 unit 01/20/19 16:30 01/21/19 12:50 Humalog SUB-Q 3 unit ACHS CORRINE Administration Protocol Levetiracetam 500 mg 01/19/19 22:00 01/21/19 09:10 Keppra PO 500 mg BID CORRINE Administration Losartan Potassium 50 mg 01/19/19 21:00 01/21/19 09:10 Cozaar PO 50 mg QDAY CORRINE Administration Metoclopramide HCl 10 mg 01/19/19 20:14 Reglan IV Q6H PRN Nausea And Vomiting Miscellaneous Medication 5,000 mcg 01/19/19 20:15 Cyanocobalamin (Vitamin B-12) [Vitamin B-12] SL DAILY CORRINE Morphine Sulfate 2 mg 01/19/19 20:14 Morphine IV Q4H PRN Pain, Moderate (4-6) Ondansetron HCl 4 mg 01/19/19 20:13 Zofran IV Q8H PRN Nausea And Vomiting Oxycodone/Acetaminophen 1 tab 01/19/19 20:14 01/20/19 00:58 Percocet 5/325 PO 1 tab Q6H PRN Administration Pain, Moderate (4-6) Sodium Chloride 10 ml 01/19/19 22:00 01/21/19 09:10 Sodium Chloride Flush Syringe 10 Ml IV 10 ml BID CORRINE Administration Sodium Chloride 10 ml 01/19/19 20:13 Sodium Chloride Flush Syringe 10 Ml IV PRN PRN LINE FLUSH Nutrition/Malnutrition Assess - Dietary Evaluation Nutrition/Malnutrition Findings: Nutrition Notes Start: 01/20/19 09:59 Freq: Status: Active Protocol: Document 01/20/19 09:59 LP (Rec: 01/20/19 09:59 LP [id number]) Nutrition Notes 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
--- NOTE | 2019-01-21 15:06 | Discharge Summary ---
Providers - Providers Date of Admission: 01/19/19 18:05 Attending physician: LONA BAHENA MD 01/19/19 Consult to Case Management [CONS] Routine Services Needed at Discharge: Home Health Services Notified:: ZHEN Consult to Physician [CONS] Stat Comment: NOTED/ LEONARD Consulting Provider: KALI COOLEY Physician Instructions: Reason For Exam: ams Primary care physician: JADEN HOLM MD Hospitalization Condition: Fair Hospital course: 73-year-old woman who was brought by her daughter because she was not making sense on the phone. She had altered mentation, she was found to be hypoglycemic with glucose of 36 and diaphoretic. PMH; hypertension, CVA, history of brain surgery for tumor removal, diabetes, seizure disorder, nephrolithiasis takes insulin 70/30 at home 25 units in am, 10 units in pm which she is taking OTC without being managed by a doctor Hypoglycemia in a type 2 DM with uncontrolled dm A1c is 10.8, TSH within normal limits Insulin as optimized SIRS hypothermia, LA, likely due to hypoglycemia, UA, chest x-ray negative, blood cultures negative to date HTN cont BP meds Periphearl neuropathy cont gabapentin dvt ppx -lovenox Disposition: - TO HOME OR SELFCARE Time spent for discharge: 33 mins Core Measure Documentation - Palliative Care Palliative Care/ Comfort Measures: Not Applicable - Core Measures Any of the following diagnoses?: none Exam - Constitutional Vitals: Temp Pulse Resp BP Pulse Ox 98.2 F 79 18 143/78 95 01/21/19 14:01 01/21/19 14:01 01/21/19 09:00 01/21/19 14:01 01/21/19 09:00 General appearance: Present: no acute distress, well-nourished - EENT Eyes: Present: PERRL ENT: hearing intact, clear oral mucosa - Neck Neck: Present: supple, normal ROM - Respiratory Respiratory effort: normal Respiratory: bilateral: CTA - Cardiovascular Heart Sounds: Present: S1 & S2. Absent: rub, click - Extremities Extremities: pulses symmetrical, No edema Peripheral Pulses: within normal limits - Abdominal General gastrointestinal: Present: soft, non-tender, non-distended, normal bowel sounds Female genitourinary: Present: normal - Integumentary Integumentary: Present: clear, warm, dry - Musculoskeletal Musculoskeletal: gait normal, strength equal bilaterally - Psychiatric Psychiatric: appropriate mood/affect, intact judgment & insight - Neurologic Neurologic: CNII-XII intact, moves all extremities Plan Follow up with: PRIMARY CARE, [Referring] - 3-5 Days Prescriptions: Insulin Glargine [Lantus] 6 units SQ QHS #1 vial Insulin Lispro [Admelog] 0 unit SQ AC #1 vial
== END 2019-01-21 17:49 | disposition home or self-care (01) | DRG 637 ==
LOC: ED 15:49 → 4A 18:05 → 2B-ACE 01-20 15:32
PROVIDERS: ADMIT Internal Medicine; ATTEND Internal Medicine
DX: E11.649 Type 2 diabetes mellitus with hypoglycemia without coma (principal); G93.41 Metabolic encephalopathy; R65.10 Systemic inflammatory response syndrome (SIRS) of non-infectious origin without acute organ dysfunction; I10 Essential (primary) hypertension; E11.42 Type 2 diabetes mellitus with diabetic polyneuropathy; R91.1 Solitary pulmonary nodule; G40.909 Epilepsy, unspecified, not intractable, without status epilepticus; E78.00 Pure hypercholesterolemia, unspecified; R68.0 Hypothermia, not associated with low environmental temperature; Z79.82 Long term (current) use of aspirin; Z79.899 Other long term (current) drug therapy; Z87.442 Personal history of urinary calculi; Z86.73 Personal history of transient ischemic attack (TIA), and cerebral infarction without residual deficits; Z90.49 Acquired absence of other specified parts of digestive tract; Z79.84 Long term (current) use of oral hypoglycemic drugs
CPT/HCPCS: 36415; 70450; 71045; 71250; 72125; 80053; 80320; 81001; 82140; 82962; 83036; 84439; 84443; 84484; 85025; 85610; 85670; 85730; 87040; 87086; 93005; 93010; 94760; 96365; 96367; G0378; A9270-GY; G0480; J0696; J1650; J1815; J1953; J7042

== ENCOUNTER 2019-04-05 15:19 | Inpatient (IN) | payer MEDICARE ==
--- NOTE | 2019-04-05 16:22 | XRay Report ---
CHEST 1 VIEW INDICATION: Syncope. COMPARISON: 01/19/2019 FINDINGS: Support devices: None. Heart: Within normal limits. Lungs/Pleura: No acute air space or interstitial disease. Additional findings: None. IMPRESSION: No acute findings. Signer Name: Luiz Kebede Jr, MD Signed: 04/05/2019 4:17 PM Workstation Name: [id number]
[2019-04-05] MEDS ORDERED: NACL 0.9% 1000 ML 1,000 ML IV ONE (17:19)
--- NOTE | 2019-04-05 17:25 | Emergency Department Report ---
ED Syncope HPI - General Chief Complaint: Syncope Stated Complaint: SYNCOPY Time Seen by Provider: 04/05/19 16:56 Source: patient, EMS Exam Limitations: no limitations - History of Present Illness Initial Comments: 74 yo F presents to ED following syncopal episode. Patient states she was outside for approx 1 hour with her lift mechanic while he fixed her car. Patient states it was hot outside, she did not have anything to drink while she was out there. Patient reports she and her lift mechanic were walking back to her house and she began to feel dizzy and lightheaded and then passed out. Assisted Living Housekeeper called EMS. Pt was reportedly hypotensive upon EMS arrival. Pt denies AGRAWAL, SOB. Reports right chest pain with coughing. Reports productive cough x 2 weeks. States has had decreased appetite as well since she has been sick with the cough. Denies fever, vomiting. Reports some diarrhea. Timing/Prior Episodes: single episode today Precipitating Factors: Positive: lightheadedness Context: standing Loss of Consciousness: unsure Current Symptoms: back to normal, chest pain (with cough), dizziness, lightheadedness. denies: headache, loss of bladder control, loss of bowel control - Related Data Allergies/Adverse Reactions: Allergies No Known Allergies Allergy (Verified 04/05/19 15:36) Home Medications: Ambulatory Orders Aspirin [Aspirin BABY CHEW TAB] 81 mg PO QDAY 04/08/14 Cholecalciferol Vit D3 [Vitamin D3 1,000 UNIT TAB] 5,000 unit PO QDAY 04/08/14 Cyanocobalamin (Vitamin B-12) [Vitamin B-12] 5,000 mcg SL DAILY 04/08/14 Gabapentin 300 mg PO TID 04/08/14 Losartan [Cozaar] 50 mg PO QDAY 04/08/14 levETIRAcetam [Keppra TAB] 500 mg PO BID 04/08/14 AtorvaSTATin [Lipitor] 40 mg PO QDAY 04/26/16 Insulin Glargine [Lantus] 6 units SQ QHS #1 vial 01/21/19 Insulin Lispro [Admelog] 0 unit SQ AC #1 vial 01/21/19 ED Review of Systems ROS: Stated complaint: SYNCOPY Other details as noted in HPI Comment: All other systems reviewed and negative Constitutional: denies: chills, fever Respiratory: cough. denies: shortness of breath Cardiovascular: chest pain (with coughing), syncope Gastrointestinal: diarrhea. denies: abdominal pain, nausea, vomiting Neurological: denies: headache ED Past Medical Hx - Past Medical History Previous Medical History?: Yes Hx Hypertension: Yes Hx CVA: Yes (2012, 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) Hx Congestive Heart Failure: No Hx Diabetes: Yes Hx Seizures: Yes Hx Kidney Stones: Yes Hx HIV: No - Surgical History Past Surgical History?: Yes Hx Cholecystectomy: Yes ([place] 1989) Additional Surgical History: Tumor removed from brain 2012 - Social History Smoking Status: Never Smoker - Medications Home Medications: Home Medications Medication Instructions Recorded Confirmed Last Taken Type Aspirin [Aspirin BABY CHEW TAB] 81 mg PO QDAY 04/08/14 04/05/19 01/20/19 History Cholecalciferol Vit D3 [Vitamin D3 5,000 unit PO QDAY 04/08/14 04/05/19 01/20/19 09:00 History 1,000 UNIT TAB] Cyanocobalamin (Vitamin B-12) 5,000 mcg SL DAILY 04/08/14 04/05/19 01/20/19 History [Vitamin B-12] Gabapentin 300 mg PO TID 04/08/14 04/05/19 01/20/19 History Losartan [Cozaar] 50 mg PO QDAY 04/08/14 04/05/19 01/20/19 09:00 History levETIRAcetam [Keppra TAB] 500 mg PO BID 04/08/14 04/05/19 01/20/19 09:00 History AtorvaSTATin [Lipitor] 40 mg PO QDAY 04/26/16 04/05/19 01/20/19 History Insulin Glargine [Lantus] 6 units SQ QHS #1 vial 01/21/19 04/05/19 Unknown Rx Insulin Lispro [Admelog] 0 unit SQ AC #1 vial 01/21/19 04/05/19 Unknown Rx ED Physical Exam - General Limitations: No Limitations General appearance: alert, in no apparent distress - Head Head exam: Present: atraumatic, normocephalic - Eye Eye exam: Present: normal appearance, PERRL, EOMI - ENT ENT exam: Present: mucous membranes moist, other (voice is hoarse) - Neck Neck exam: Present: normal inspection - Respiratory Respiratory exam: Present: normal lung sounds bilaterally. Absent: respiratory distress - Cardiovascular Cardiovascular Exam: Present: regular rate. Absent: normal rhythm - GI/Abdominal GI/Abdominal exam: Present: soft. Absent: distended, tenderness - Extremities Exam Extremities exam: Present: normal inspection. Absent: pedal edema, calf tenderness - Neurological Exam Neurological exam: Present: alert, oriented X3, CN II-XII intact. Absent: motor sensory deficit - Psychiatric Psychiatric exam: Present: normal affect, normal mood - Skin Skin exam: Present: warm, dry, intact, normal color. Absent: rash ED Course Vital Signs 04/05/19 04/05/19 04/05/19 15:35 15:49 16:00 Pulse Rate 88 64 81 Respiratory 16 23 19 Rate Blood Pressure 98/61 Blood Pressure 120/80 [Left] O2 Sat by Pulse 97 Oximetry 04/05/19 04/05/19 04/05/19 16:15 16:30 16:45 Pulse Rate 79 78 76 Respiratory 21 21 20 Rate Blood Pressure 113/62 113/63 106/58 Blood Pressure [Left] O2 Sat by Pulse 92 93 Oximetry 04/05/19 04/05/19 04/05/19 17:00 17:15 17:30 Pulse Rate 75 85 76 Respiratory 19 14 23 Rate Blood Pressure 112/62 97/67 120/68 Blood Pressure [Left] O2 Sat by Pulse 95 94 Oximetry 04/05/19 04/05/19 04/05/19 17:45 18:00 18:15 Pulse Rate 74 73 72 Respiratory 19 19 19 Rate Blood Pressure 114/65 118/66 120/66 Blood Pressure [Left] O2 Sat by Pulse 94 Oximetry 04/05/19 04/05/19 04/05/19 18:31 18:45 19:01 Pulse Rate 72 73 74 Respiratory 17 15 16 Rate Blood Pressure 120/66 120/66 120/66 Blood Pressure [Left] O2 Sat by Pulse 96 93 92 Oximetry 04/05/19 19:15 Pulse Rate 78 Respiratory 18 Rate Blood Pressure 120/66 Blood Pressure [Left] O2 Sat by Pulse 98 Oximetry ED Medical Decision Making - Lab Data Result diagrams: 04/05/19 19:00 04/05/19 19:00 - EKG Data -: EKG Interpreted by Oh EKG shows normal: sinus rhythm, axis, intervals, QRS complexes, ST-T waves Rate: normal - EKG Data Interpretation: no acute changes - Radiology Data Radiology results: report reviewed, image reviewed - Medical Decision Making 74 yo F s/p syncopal episode. Pt reports diarrhea, URI sx's, decreased PO intake over the last 2 weeks. Syncopal episode today after being out in the heat for 1 hour. Pt reported chest pain. EKG, troponin normal. D-dimer elevated. Order for CTA was placed prior to creatnine resulting. Unsure if pt was taken for CT by tech before or after creatnine resulted, however, I was not made aware of the results prior to study being done. CTA negative for any acute abnormalities, including PE. Due to syncope, dehydration, ARF, will admit to hospitalist, Dr Reardon. - Differential Diagnosis dehydration, PE, arrythmia Critical care attestation.: If time is entered above; I have spent that time in minutes in the direct care of this critically ill patient, excluding procedure time. ED Disposition Clinical Impression: Syncope, Acute renal failure Disposition: OP ADMIT IP TO THIS HOSP Is pt being admited?: Yes Condition: Stable Instructions: Syncope (ED) Referrals: JADEN HOLM MD [Primary Care Provider] - 3-5 Days Time of Disposition: 21:08
[2019-04-05 18:02] LABS: INR 1.05 (0.87-1.13); Partial Thromboplastin Time 20.7 Sec. (24.2-36.6)
[2019-04-05 19:13] LABS: Basophils # (Auto) 0.1 K/mm3 (0.0-0.1); Eosinophils # (Auto) 0.1 K/mm3 (0.0-0.4); Eosinophils % (Auto) 1.1 % (0.0-4.3); Hematocrit 39.7 % (30.3-42.9); Hemoglobin 13.5 gm/dl (10.1-14.3); Lymphocytes # (Auto) 2.7 K/mm3 (1.2-5.4); Lymphocytes % (Auto) 36.1 % (13.4-35.0); Mean Corpuscular HGB Conc 34 % (30-34); Mean Corpuscular Volume 94 fl (79-97); Monocytes # (Auto) 0.8 K/mm3 (0.0-0.8); Monocytes % (Auto) 10.5 % (0.0-7.3); Platelet Count 306 K/mm3 (140-440); Red Blood Count 4.23 M/mm3 (3.65-5.03); Red Cell Distribution Width 12.8 % (13.2-15.2)
[2019-04-05 19:34] LABS: Alanine Aminotransferase 9 units/L (7-56); Albumin 3.7 g/dL (3.9-5); BUN/Creatinine Ratio 16; Blood Urea Nitrogen 29 mg/dL (7-17); Calcium 9.3 mg/dL (8.4-10.2); Hemolysis Index 13
[2019-04-05 19:56] LABS: Creatine Kinase MB < 1.0 ng/mL (0.0-4.0)
--- NOTE | 2019-04-05 20:43 | Cat Scan Report ---
CTA CHEST WITH IV CONTRAST INDICATION / CLINICAL INFORMATION: chest pain. TECHNIQUE: Axial CT images were obtained through the chest after injection of 100 mL Omnipaque 350 IV contrast. 3 plane MIP and/or 3D reconstructions were produced. All CT scans at this location are performed usin g CT dose reduction for ALARA by means of automated exposure control. COMPARISON: CT dated 01/20/19 FINDINGS: PULMONARY ARTERIES: No pulmonary emboli. THORACIC AORTA: Mild atherosclerotic calcification without acute abnormality. HEART: No significant abnormality. CORONARY ARTERIES: No significant calcification. PLEURA: No pleural effusion. No pneumothorax. LYMPH NODES: No significant adenopathy. LUNGS: No acute air space or interstitial disease. ADDITIONAL FINDINGS: Complex right thyroid nodule with calcification is unchanged. Mildly prominent b ilateral axillary lymph nodes are unchanged. Note of these nodes are pathologically enlarged. UPPER ABDOMEN: Mixed fat and soft tissue density lesion of the left adrenal gland measuring 4.7 x 3.4 cm likely representing adrenal myelolipoma. This lesion is incompletely visualized on this study. No nobstructing stone in the right kidney. SKELETAL STRUCTURES: No significant osseous abnormality. IMPRESSION: 1. No CT evidence for pulmonary embolism. 2. No acute pulmonary or pleural findings. 3. Probable large left adrenal myelolipoma. Complete evaluation with [address] abdomen or MRI with a nd without contrast is recommended on an outpatient basis. Signer Name: Kelly Peterson MD Signed: 04/05/2019 8:39 PM Workstation Name: [id number]
[2019-04-06] MEDS ORDERED: TYLENOL PO PRN (01:46)
[2019-04-06] MEDS ORDERED: ZOFRAN IV PRN (01:47)
[2019-04-06] MEDS ORDERED: D50W (25GM) Syringe IV PRN (01:50)
[2019-04-06] MEDS ORDERED: NACL 0.9% 1000 ML 1,000 ML IV SCH (02:00)
--- NOTE | 2019-04-06 02:49 | Cat Scan Report ---
CT head without contrast HISTORY: SYNCOPE. TECHNIQUE: Axial imaging performed from the skull apex through the skull base without the use of con trast. All CT scans at this location are performed using CT dose reduction for ALARA by means of aut omated exposure control. COMPARISON: CT head from 01/19/2019 FINDINGS: There is a small amount of retained contrast from the recent CT angiogram of the chest. Parenchyma: No acute intracranial hemorrhage or parenchymal abnormality. Ventricles: There is mild diffuse brain atrophy with commensurate ventricular enlargement which is l ikely age appropriate. Soft tissues: Soft tissues including the orbits appear normal. Bones: No acute osseous abnormality. Old left frontal craniotomy change again noted. Sinuses: Sinuses and mastoid air cells are clear. IMPRESSION: No acute abnormality. Signer Name: Antonio Garza MD Signed: 04/06/2019 2:45 AM Workstation Name: [id number]
[2019-04-06 07:48] LABS: Creatine Kinase MB < 1.0 ng/mL (0.0-4.0)
[2019-04-06 07:50] LABS: BUN/Creatinine Ratio 16; Blood Urea Nitrogen 23 mg/dL (7-17); Calcium 9.1 mg/dL (8.4-10.2); Hemolysis Index 13
--- NOTE | 2019-04-06 08:21 | History and Physical Report ---
CHIEF COMPLAINT: Syncopal attack. HISTORY OF PRESENT ILLNESS: The patient is a 74-year-old female who said she was outside for about 1 hour trying to fix her car with a power equipment mechanics instructor and did not drink enough fluids and was getting into the house and became dizzy and passed out. EMS was called by the power equipment mechanics instructor and the patient was found to be hypotensive. There was no history of shortness of breath. There was history of right-sided chest pain with coughing. The patient said that she has been coughing for about 2 weeks with productive cough and said she also has some diarrhea, but no vomiting, no fever or chills and was brought to the Emergency Room. PAST MEDICAL HISTORY: Pertinent for hypertension, cerebrovascular accident, diabetes mellitus, seizure disorder, kidney stones. PAST SURGICAL HISTORY: Pertinent for cholecystectomy and tumor removal from the brain in 2012. FAMILY HISTORY: Noncontributory. SOCIAL HISTORY: The patient does not smoke, does not drink alcohol and does not use illicit drugs. MEDICATIONS: The patient's medications include aspirin 81 mg by mouth daily, cholecalciferol 5000 units by mouth daily, cyanocobalamin 5000 mcg sublingual daily and gabapentin 300 mg by mouth 3 times daily. The patient is also on losartan 50 mg by mouth daily and Keppra 500 mg by mouth twice daily as well as Lipitor 40 mg by mouth daily. The patient is also on Lantus insulin subQ 6 units at bedtime and lispro insulin subQ a.c. according to sliding scale. ALLERGIES: There are no known drug allergies. REVIEW OF SYSTEMS: CONSTITUTIONAL: There is no fever, no chills, no diaphoresis. HEENT: There is no headache or sore throat. CARDIOVASCULAR SYSTEM: There is right chest pain with coughing, but no orthopnea. RESPIRATORY SYSTEM: There is no shortness of breath, but there is cough. GASTROINTESTINAL SYSTEM: There is no nausea, no vomiting, but the patient has diarrhea and no abdominal pain. NEUROLOGICAL SYSTEM: There is dizziness and syncopal episode or syncopal attack. MUSCULOSKELETAL SYSTEM: There is no joint pain or swelling. DERMATOLOGICAL SYSTEM: There is no skin rash or itching. GENITOURINARY SYSTEM: There is no dysuria. There is no hematuria or flank pain. Rest of system review is normal. PHYSICAL EXAMINATION: GENERAL: At the time of exam, the patient was found to be alert, oriented x 3 and not in acute distress. VITAL SIGNS: At the initial time of presentation show pulse of 88, respirations 16, blood pressure 120/80, O2 sat of 97% on room air. HEENT: Pupils to be equal, round, reactive to light and accommodating. Extraocular muscles are intact. NECK: Supple with no JVD or carotid bruit. CARDIOVASCULAR SYSTEM: Showed normal first and second heart sounds with no gallops or murmurs. RESPIRATORY SYSTEM: Show good air entry on both sides of the lungs with no abnormal breath sounds. GASTROINTESTINAL SYSTEM: Show abdomen to be full, soft, nontender with no organomegaly or rigidity. NEUROLOGICAL: Shows no focal deficit. MUSCULOSKELETAL SYSTEM: Show no joint swelling or tenderness. DERMATOLOGICAL SYSTEM: Show no skin rash. GENITOURINARY SYSTEM: Showing no costovertebral angle tenderness. PERTINENT LABORATORY DATA AND IMAGING STUDIES: The patient had chest x-ray done that shows no acute findings. The patient had CT angiogram of the chest done because of elevated D-dimer and syncope and it shows no CT evidence of pulmonary embolism and no acute pulmonary or pleural findings. There is finding of large left adrenal myelolipoma, radiologist to order a complete evaluation with 3-phase CT abdomen or MRI with or without contrast. The patient had CT of the head done and CT of the head shows no acute abnormality. LABORATORY IMAGING STUDIES: The patient has CBC done with normal white count, normal hemoglobin and normal hematocrit with CBC differential showing elevated lymphocyte count of 36.1% with elevated monocyte count of 10.5%. Coagulation studies show elevated D-dimer of 356 with chemistry showing elevated BUN of 29 and elevated creatinine of 1.8 with high blood glucose level of 218. Rest of the chemistry shows slight decrease in albumin of 3.7. DIAGNOSES: 1. Syncope. 2. Acute renal failure. 3. Left adrenal myelolipoma. PLAN OF CARE: 1. The patient will be admitted to medical floor on telemetry. 2. The patient will have cardiac enzymes involving troponin, total CK, and CK-MB checked q. 6 hours x 2 more levels. 3. The patient will have 2D echo done this morning and will have bilateral carotid Doppler also done this morning. 4. The patient will be on IV normal saline running at 75 mL an hour. 5. The patient will be on p.r.n. medications like Tylenol 650 mg by mouth every 4 hours for fever and headache and IV Zofran 4 mg every 8 hours as needed for nausea and vomiting. 6. The patient will have basic metabolic panel checked this morning. 7. The patient will have Nephrology consult with Dr. Witt for management of acute kidney injury. 8. The patient will be on Accu-Chek before meals and at bedtime, followed by low-dose sliding scale using regular insulin coverage. 9. The patient's diet will be consistent carbohydrate 2 g sodium diet. JOB# [id number] OCN/NTS MTDD
--- NOTE | 2019-04-06 09:21 | Vascular Lab Report ---
"DUPLEX DOPPLER ULTRASOUND CAROTID, BILATERAL INDICATION: SYNCOPE. COMPARISON: None available. FINDINGS: RIGHT CAROTID: There is minimal plaque at the right carotid bulb. CCA velocity: 76 cm/sec. ICA peak systolic velocity: 105 cm/sec. ICA/CCA PSV Ratio: 1.4. Right Vertebral Artery: Antegrade flow. LEFT CAROTID: No significant atherosclerotic plaque. CCA velocity: 73 cm/sec. ICA peak systolic velocity: 97 cm/sec. ICA/CCA PSV Ratio: 1.3. Left Vertebral Artery: Antegrade flow. IMPRESSION: 1. Right Internal Carotid Artery: Less than 50% diameter stenosis. 2. Left Internal Carotid Artery: Less than 50% diameter stenosis. Velocity criteria are extrapolated from diameter data as defined by the Society of Radiologists in Ul trasound Consensus Conference, Radiology 2003; 229;340-346. Degree of || ICA PSV || Plaque || ICA/CCA Stenosis (%) || (cm/sec) || estimate (%) || PSV Ratio - Normal...............<125..............None.................<2.0 - <50....................<125..............<50....................<2.0 - 50-69................125-230.........>50....................2.0-4.0 - >70 but <100....>230..............>50....................>4.0 - Near...................High, low, .....visible................variable occlusion or none - Total...................None.............visible;................N/A occlusion no lumen Signer Name: Roberto Contreras MD Signed: 04/06/2019 9:17 AM Workstation Name: [id number]"
[2019-04-06] MEDS ORDERED: CYANOCOBALAMIN 5000 MCG SL SCH (10:00)
[2019-04-06] MEDS ORDERED: LOSARTAN 50 MG PO SCH (10:00)
--- NOTE | 2019-04-06 10:30 | Event Note ---
Date: 04/06/19 This is a follow-up from an admission earlier this morning. Patient seen and examined. We will continue the plan as outlined in H&P. Creatinine has improved. Time spent = 25 minutes with greater than 50% spent for coordination of care and counseling.
[2019-04-06] MEDS: HumuLIN R SUB-Q SCH ×3 (10:33→17:23)
[2019-04-06] MEDS: BABY ASPIRIN PO SCH (10:34)
[2019-04-06] MEDS: KEPPRA PO SCH ×2 (10:34→22:24)
[2019-04-06] MEDS: VITAMIN B-12 PO SCH (10:34)
[2019-04-06] MEDS: COZAAR PO SCH (10:34)
[2019-04-06] MEDS: NEURONTIN PO SCH ×3 (11:18→20:50)
[2019-04-06] MEDS: VITAMIN D3 PO SCH (11:18)
[2019-04-06] MEDS ORDERED: ROBITUSSIN PO PRN (12:11)
--- NOTE | 2019-04-06 12:17 | Consultation ---
History of Present Illness - Reason for Consult Consult date: 04/06/19 acute renal failure - History of Present Illness The patient is a 74 YO female with history significant DM type 2, HTN, Seizure disorder, Brain tumor s/p resection and L hemiparesis who presented to ED after an episode of syncope. Patient states she was outside for approx 1 hour while it was hot outside and she did not have anything to drink while she was out there. Patient reports that she began to feel dizzy and lightheaded and then passed out. EMS brought her into the ER. Initial BP was 98/61. Reports decreased appetite, cough and rib pain. Pt denies AGRAWAL, CP, palpitation, SOB, fever, chills, nausea, vomiting, abd pain, rash or new weakness. Creatinine was 1.8 yesterday. Nephrology was consulted for further evaluation. Past History Past Medical History: diabetes, hypertension, seizures Medications and Allergies Allergies Allergy/AdvReac Type Severity Reaction Status Date / Time No Known Allergies Allergy Verified 04/05/19 15:36 Home Medications Medication Instructions Recorded Confirmed Last Taken Type Aspirin [Aspirin BABY CHEW TAB] 81 mg PO QDAY 04/08/14 04/05/19 01/20/19 History Cholecalciferol Vit D3 [Vitamin D3 5,000 unit PO QDAY 04/08/14 04/05/19 01/20/19 09:00 History 1,000 UNIT TAB] Cyanocobalamin (Vitamin B-12) 5,000 mcg SL DAILY 04/08/14 04/05/19 01/20/19 History [Vitamin B-12] Gabapentin 300 mg PO TID 04/08/14 04/05/19 01/20/19 History Losartan [Cozaar] 50 mg PO QDAY 04/08/14 04/05/19 01/20/19 09:00 History levETIRAcetam [Keppra TAB] 500 mg PO BID 04/08/14 04/05/19 01/20/19 09:00 History AtorvaSTATin [Lipitor] 40 mg PO QDAY 04/26/16 04/05/19 01/20/19 History Insulin Glargine [Lantus] 6 units SQ QHS #1 vial 01/21/19 04/05/19 Unknown Rx Insulin Lispro [Admelog] 0 unit SQ AC #1 vial 01/21/19 04/05/19 Unknown Rx Active Meds: Active Medications Acetaminophen (Tylenol) 650 mg PO Q4H PRN PRN Reason: Fever >101 Aspirin (Baby Aspirin) 81 mg PO QDAY [facility] Last Admin: 04/06/19 10:34 Dose: 81 mg Documented by: Atorvastatin Calcium (Lipitor) 40 mg PO QHS [facility] Cholecalciferol (Vitamin D3) 5,000 unit PO QDAY [facility] Last Admin: 04/06/19 11:18 Dose: 5,000 unit Documented by: Cyanocobalamin (Vitamin B-12) 5,000 mcg PO QDAY [facility] Stop: 06/07/19 09:59 Last Admin: 04/06/19 10:34 Dose: 5,000 mcg Documented by: Dextrose (D50w (25gm) Syringe) 50 ml IV PRN PRN PRN Reason: Hypoglycemia Gabapentin (Neurontin) 300 mg PO TID [facility] Last Admin: 04/06/19 11:18 Dose: 300 mg Documented by: Guaifenesin (Robitussin) 200 mg PO Q4H PRN PRN Reason: Cough Sodium Chloride (Nacl 0.9% 1000 Ml) 1,000 mls @ 75 mls/hr IV DIRECT [facility] Insulin Human Regular (Humulin R) 0 units SUB-Q [facility]; Protocol Last Admin: 04/06/19 10:33 Dose: 3 units Documented by: Insulin Human Regular (Humulin R) 0 units SUB-Q QHS [facility]; Protocol Levetiracetam (Keppra) 500 mg PO BID [facility] Last Admin: 04/06/19 10:34 Dose: 500 mg Documented by: Losartan Potassium (Cozaar) 50 mg PO QDAY [facility] Last Admin: 04/06/19 10:34 Dose: 50 mg Documented by: Ondansetron HCl (Zofran) 4 mg IV Q8H PRN PRN Reason: Nausea And Vomiting Review of Systems Constitutional: anorexia, poor appetite, no weight loss, no weight gain, no fever, no chills, no fatigue Breasts: deferred Cardiovascular: lightheadedness, high blood pressure, no chest pain, no orthopnea, no palpitations, no edema, no shortness of breath, no leg edema Respiratory: cough, no hemoptysis, no shortness of breath, no dyspnea on exertion Gastrointestinal: no abdominal pain, no nausea, no vomiting, no hematemesis, no melena Rectal: no bleeding Integumentary: no sores, no jaundice Neurological: syncope, change in speech, no head injury, no aphasia, no change in mentation, no confusion, no memory loss Exam - Vital Signs Vital signs: Vital Signs Pulse Resp BP Pulse Ox 88 16 120/80 97 04/05/19 15:35 04/05/19 15:35 04/05/19 15:35 04/05/19 15:35 - General Appearance General appearance: well-developed, appears stated age, other (no distress) EENT: ATNC, PERRL, mucous membranes moist, hearing intact, vision intact Neck: Present: neck supple, trachea midline Respiratory: Clear to Ascultation Heart: regular, S1S2, no murmurs Gastrointestinal: Present: normoactive bowel sounds. Absent: tenderness, distended Integumentary: no rash, warm and dry Neurologic: no asterixis, alert and oriented x3, hemiplegic (left side), aphasia Musculoskeletal: Present: other (no edema) Psychiatric: cooperative Results - Lab Results 04/05/19 19:00 04/06/19 06:42 Most recent lab results Calcium 9.1 mg/dL (8.4-10.2) 04/06/19 06:42 Assessment and Plan 1. Acute kidney injury: Vasomotor NICOLE in the setting of volume depletion and hypotension. Urine studies and Renal US ordered. Renal function is improving. Continue IV fluids. Monitor renal function. Avoid nephrotoxic agents. Meds dosage based on GFR. 2. FEN: Volume depletion, continue IV fluids. Monitor lytes. 3. Syncope: Likely vaso-vagal. 4. DM type 2. 5. Hypertension.
[2019-04-06 16:05] LABS: Creatine Kinase MB < 1.0 ng/mL (0.0-4.0)
[2019-04-06 20:33] LABS: Creatinine,Urine 52.9 mg/dL (0.1-20.0)
[2019-04-06 20:36] LABS: Bilirubin,Urine NEG (Negative); Blood,Urine NEG (Negative); Color,Urine Straw (Yellow); Protein,Urine <15 mg/dL mg/dL (Negative); Urobilinogen,Urine < 2.0 mg/dL (<2.0)
[2019-04-06] MEDS ORDERED: LANTUS SUB-Q SCH (22:00)
[2019-04-06] MEDS ORDERED: HumuLIN R SUB-Q SCH (22:00)
[2019-04-07 05:27] LABS: Basophils % (Auto) 0.6 % (0.0-1.8); Eosinophils # (Auto) 0.2 K/mm3 (0.0-0.4); Eosinophils % (Auto) 2.2 % (0.0-4.3); Hematocrit 35.2 % (30.3-42.9); Hemoglobin 12.1 gm/dl (10.1-14.3); Lymphocytes # (Auto) 2.4 K/mm3 (1.2-5.4); Lymphocytes % (Auto) 34.3 % (13.4-35.0); Mean Corpuscular HGB Conc 35 % (30-34); Mean Corpuscular Volume 94 fl (79-97); Monocytes # (Auto) 0.8 K/mm3 (0.0-0.8); Monocytes % (Auto) 10.8 % (0.0-7.3); Platelet Count 312 K/mm3 (140-440); Red Blood Count 3.76 M/mm3 (3.65-5.03); Red Cell Distribution Width 13.1 % (13.2-15.2)
[2019-04-07 06:04] LABS: Calcium 8.9 mg/dL (8.4-10.2)
[2019-04-07] MEDS ORDERED: HumaLOG SUB-Q SCH ×2 (07:30→13:00)
[2019-04-07 08:37] VITALS: BP 141/70
[2019-04-07] MEDS: NEURONTIN PO SCH (08:42)
--- NOTE | 2019-04-07 09:19 | Discharge Summary ---
Providers - Providers Date of Admission: 04/06/19 02:50 Date of discharge: 04/07/19 Attending physician: DAWNA AGOSTO 04/06/19 06:00 Consult to Physician [CONS] Routine Comment: Consulting Provider: TORI HANCOCK Physician Instructions: Reason For Exam: NICOLE Primary care physician: JADEN HOLM MD Hospitalization Reason for admission: syncope Condition: Stable Hospital course: The patient is a 74 YO female with history significant DM type 2, HTN, Seizure disorder, Brain tumor s/p resection and L hemiparesis who presented to ED after an episode of syncope. Patient states she was outside for approx 1 hour while it was hot outside and she did not have anything to drink while she was out th ere. Patient reports that she began to feel dizzy and lightheaded and then passed out. EMS brought her into the ER. Initial BP was 98/61. CT scan of the head showed no acute abnormalities. Carotid Dopplers revealed less than 50% stenosis bilaterally. Echocardiogram revealed EF of 50-55% with normal right ventricular and left ventricular systolic function. CT of the chest showed no evidence of PE but did reveal large left adrenal myelolipoma with complete evaluation with [address] abdomen or MRI with and without contrast as an outpatient. The patient was noted to have acute renal failure secondary to acute kidney injury from vasomotor nephropathy/dehydration. On admission, creatinine was elevated at 1.8 but returned to near normal range at 1.4 at discharge. Urine studies found be negative and renal ultrasound is pending. Nephrology saw the patient in consultation. If renal ultrasound is within normal limits patient will be discharged home. Dedicated discharge time 32 minutes. Disposition: - TO HOME OR SELFCARE Time spent for discharge: 32 - Discharge Diagnoses (1) Vasomotor nephropathy Status: Acute (2) Acute renal failure Status: Acute (3) Syncope Status: Acute (4) Acute renal insufficiency Status: Acute (5) Diabetes mellitus with insulin therapy Status: Acute (6) History of brain surgery Status: Acute (7) History of brain tumor Status: Acute (8) HTN (hypertension) Status: Chronic Qualifiers: Hypertension type: essential hypertension Qualified Code(s): I10 - Essential (primary) hypertension Core Measure Documentation - Palliative Care Palliative Care/ Comfort Measures: Not Applicable - Core Measures Any of the following diagnoses?: none Exam - Constitutional Vitals: Temp Pulse Resp BP Pulse Ox 98.4 F 78 18 141/70 94 04/07/19 08:15 04/07/19 08:15 04/07/19 08:15 04/07/19 08:15 04/07/19 08:15 General appearance: Present: no acute distress, well-nourished - EENT Eyes: Present: PERRL ENT: hearing intact, clear oral mucosa - Neck Neck: Present: supple, normal ROM - Respiratory Respiratory effort: normal Respiratory: bilateral: CTA - Cardiovascular Heart Sounds: Present: S1 & S2. Absent: rub, click - Extremities Extremities: pulses symmetrical, No edema Peripheral Pulses: within normal limits - Abdominal General gastrointestinal: Present: soft, non-tender, non-distended, normal bowel sounds Female genitourinary: Present: normal - Integumentary Integumentary: Present: clear, warm, dry - Musculoskeletal Musculoskeletal: gait normal, strength equal bilaterally - Psychiatric Psychiatric: appropriate mood/affect, intact judgment & insight - Neurologic Neurologic: CNII-XII intact, moves all extremities Plan Activity: no restrictions Weight Bearing Status: Full Weight Bearing Diet: diabetic Follow up with: JADEN HOLM MD [Primary Care Provider] - 3-5 Days TORI HANCOCK MD [Staff Physician] - 7 Days
--- NOTE | 2019-04-07 09:50 | Ultrasound Report ---
ULTRASOUND RENAL INDICATION / CLINICAL INFORMATION: Acute renal failure.. COMPARISON: Ultrasound dated 04/23/14 FINDINGS: RIGHT KIDNEY: Length = 9.2 cm. - Echogenicity: Normal. - Cortical Thickness: Normal. - Hydronephrosis: None. - Cyst or mass: No significant abnormality. - Stones: 5 mm nonobstructing stone. LEFT KIDNEY: Length = 9.4 cm. - Echogenicity: Normal. - Cortical Thickness: Normal. - Hydronephrosis: None. - Cyst or mass: No left renal mass or cyst. Echogenic, fat density lesion adjacent to the upper pole measures 4.0 x 3.3 [address] seen on CT chest dated 04/05/19. - Stones: None seen. URINARY BLADDER: No significant abnormality. FREE FLUID: None. ADDITIONAL FINDINGS: None. IMPRESSION: 1. No acute sonographic abnormality of the kidneys. 2. Small nonobstructing stone in the right kidney. 3. Fat density lesion adjacent to the upper pole of the left kidney likely is adrenal in origin. Signer Name: Kelly Peterson MD Signed: 04/07/2019 9:46 AM Workstation Name: [id number]
[2019-04-07] MEDS: VITAMIN D3 PO SCH (10:02)
[2019-04-07] MEDS: BABY ASPIRIN PO SCH (10:03)
[2019-04-07] MEDS: KEPPRA PO SCH (10:03)
[2019-04-07] MEDS: COZAAR PO SCH (10:04)
[2019-04-07] MEDS: VITAMIN B-12 PO SCH (10:39)
--- NOTE | 2019-04-07 10:47 | Progress Note ---
Assessment and Plan 1. Acute kidney injury: Vasomotor NICOLE in the setting of volume depletion and hypotension. Renal US negative for hydro. Renal function is improving. Encouraged PO fluids. Monitor renal function. Avoid nephrotoxic agents. Meds dosage based on GFR. 2. FEN: Volume depletion, s/p IV fluids. Monitor lytes. 3. Syncope: Likely vaso-vagal. 4. DM type 2. 5. Hypertension. F/u with me 1-2 weeks. Subjective Date of service: 04/07/19 Interval history: Patient was seen and examined at the bedside. Doing better. Objective - Vital Signs Vital signs: Vital Signs - 12hr 04/06/19 04/06/19 04/07/19 23:51 23:53 03:51 Temperature 98.4 F Pulse Rate 79 93 H Respiratory 18 18 Rate Blood Pressure 163/84 118/68 O2 Sat by Pulse 98 95 Oximetry 04/07/19 04/07/19 04/07/19 03:52 08:15 10:00 Temperature 98.8 F 98.4 F Pulse Rate 78 81 Respiratory 18 Rate Blood Pressure 141/70 O2 Sat by Pulse 94 Oximetry 04/07/19 10:04 Temperature Pulse Rate 78 Respiratory Rate Blood Pressure 141/70 O2 Sat by Pulse Oximetry - General Appearance General appearance: well-developed, appears stated age, other (no distress) EENT: ATNC, PERRL, hearing intact, vision intact Neck: supple Respiratory: Present: Clear to Ascultation Cardiology: regular, S1S2, no murmurs Gastrointestinal: normoactive bowel sounds, no tenderness, no distended Integumentary: no rash, warm and dry Neurologic: no asterixis, alert and oriented x3, aphasia, other (L hemiparesis) Musculoskeletal: other (no edema) - Lab 04/07/19 04:44 04/07/19 04:44 Most recent lab results Calcium 8.9 mg/dL (8.4-10.2) 04/07/19 04:44 Phosphorus 3.60 mg/dL (2.5-4.5) 04/07/19 04:44 Magnesium 2.20 mg/dL (1.7-2.3) 04/07/19 04:44 52.9 mg/dL (0.1-20.0) H 04/06/19 20:00 28 mmol/L 04/06/19 20:00 Medications & Allergies - Medications Allergies/Adverse Reactions: Allergies No Known Allergies Allergy (Verified 04/05/19 15:36) Home Medications: Home Medications Medication Instructions Recorded Confirmed Last Taken Type Aspirin [Aspirin BABY CHEW TAB] 81 mg PO QDAY 04/08/14 04/05/19 01/20/19 History Cholecalciferol Vit D3 [Vitamin D3 5,000 unit PO QDAY 04/08/14 04/05/19 01/20/19 09:00 History 1,000 UNIT TAB] Cyanocobalamin (Vitamin B-12) 5,000 mcg SL DAILY 04/08/14 04/05/19 01/20/19 History [Vitamin B-12] Gabapentin 300 mg PO TID 04/08/14 04/05/19 01/20/19 History Losartan [Cozaar] 50 mg PO QDAY 04/08/14 04/05/19 01/20/19 09:00 History levETIRAcetam [Keppra TAB] 500 mg PO BID 04/08/14 04/05/19 01/20/19 09:00 History AtorvaSTATin [Lipitor] 40 mg PO QDAY 04/26/16 04/05/19 01/20/19 History Insulin Glargine [Lantus VIAL] 6 units SQ QHS #1 vial 01/21/19 04/05/19 Unknown Rx Insulin Lispro [Admelog] 0 unit SQ AC #1 vial 01/21/19 04/05/19 Unknown Rx Cyanocobalamin [Vitamin B-12] 5,000 mcg PO QDAY tablet 04/07/19 Unknown Rx Insulin Glargine [Lantus VIAL] 6 units SUB-Q QHS units 04/07/19 Unknown Rx Lispro Insulin [HumaLOG] 0 unit SUB-Q AC units 04/07/19 Unknown Rx Losartan [Cozaar] 50 mg PO QDAY tablet 04/07/19 Unknown Rx guaiFENesin [Robitussin] 200 mg PO Q4H PRN oral.liqd 04/07/19 Unknown Rx Active Medications: Generic Name Dose Route Start Last Admin Trade Name Freq PRN Reason Stop Dose Admin Acetaminophen 650 mg 04/06/19 01:46 Tylenol PO Q4H PRN Fever >101 Aspirin 81 mg 04/06/19 10:00 04/07/19 10:03 Baby Aspirin PO 81 mg QDAY [facility] Administration Atorvastatin Calcium 40 mg 04/06/19 22:00 04/06/19 22:24 Lipitor PO 40 mg QHS [facility] Administration Cholecalciferol 5,000 unit 04/06/19 10:00 04/07/19 10:02 Vitamin D3 PO 5,000 unit QDAY [facility] Administration Cyanocobalamin 5,000 mcg 04/06/19 10:00 04/07/19 10:39 Vitamin B-12 PO 06/07/19 09:59 5,000 mcg QDAY [facility] Administration Dextrose 50 ml 04/06/19 01:50 D50w (25gm) Syringe IV PRN PRN Hypoglycemia Gabapentin 300 mg 04/06/19 08:00 04/07/19 08:42 Neurontin PO 300 mg TID [facility] Administration Guaifenesin 200 mg 04/06/19 12:11 04/06/19 12:21 Robitussin PO 200 mg Q4H PRN Administration Cough Sodium Chloride 1,000 mls @ 75 mls/hr 04/06/19 02:00 Nacl 0.9% 1000 Ml IV DIRECT [facility] Insulin Glargine 6 units 04/06/19 22:00 04/06/19 22:24 Lantus SUB-Q 6 units QHS [facility] Administration Insulin Human Lispro 0 unit 04/07/19 07:30 04/07/19 08:58 Humalog SUB-Q 4 unit AC [facility] Administration Protocol Levetiracetam 500 mg 04/06/19 10:00 04/07/19 10:03 Keppra PO 500 mg BID [facility] Administration Losartan Potassium 50 mg 04/06/19 10:00 04/07/19 10:04 Cozaar PO 50 mg QDAY [facility] Administration Ondansetron HCl 4 mg 04/06/19 01:47 Zofran IV Q8H PRN Nausea And Vomiting
== END 2019-04-07 15:00 | disposition home or self-care (01) | DRG 640 ==
LOC: ED 15:19 → 4A 04-06 02:50
PROVIDERS: ADMIT Internal Medicine; ATTEND Hospitalist
DX: E86.0 Dehydration (principal); N17.0 Acute kidney failure with tubular necrosis; I69.854 Hemiplegia and hemiparesis following other cerebrovascular disease affecting left non-dominant side; E86.9 Volume depletion, unspecified; E11.9 Type 2 diabetes mellitus without complications; R55 Syncope and collapse; G40.909 Epilepsy, unspecified, not intractable, without status epilepticus; Z79.82 Long term (current) use of aspirin; Z79.899 Other long term (current) drug therapy; Z87.442 Personal history of urinary calculi; Z90.49 Acquired absence of other specified parts of digestive tract; Z79.84 Long term (current) use of oral hypoglycemic drugs
CPT/HCPCS: 36415; 70450; 71045; 71275; 76770; 80048; 80053; 81001; 82550; 82553; 82570; 82962; 83735; 84100; 84300; 84484; 85025; 85379; 85610; 85730; 93005; 93010; 93306; 93880; 96360; G0378; A9270-GY; J1815; J7030; Q9967

== ENCOUNTER 2021-03-11 13:26 | Emergency (ER) | payer MEDICARE ==
[2021-03-11 15:49] VITALS: BP 173/85
[2021-03-11] MEDS ORDERED: HYDROcodone/ACETAMINOPHEN 5-325 MG TAB PO ONE (16:09)
--- NOTE | 2021-03-11 16:09 | Emergency Department Report ---
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 Patient states that she was changing oil in her car. She states that she was walking ar ound the car to go to the other side to get the oil when she tripped over one of the cement blocks on the ground. She states that she fell forward hitting her head and then striking her left knee and left foot. She denies any LOC. She complains mainly of a headache, left knee pain and left foot pain and slight pain in her left hip. She denies any dizziness, vision changes, Chest pain, SOB, back pain nausea, vomiting, vision changes, neck pain, focal weakness or worsening numbness or tingling. She is on a 81 mg aspirin daily. MD Complaint: fall -: Sudden - Related Data Home Medications Medication Instructions Recorded Confirmed Last Taken Aspirin [Aspirin BABY CHEW TAB] 81 mg PO QDAY 04/08/14 04/05/19 01/20/19 Cholecalciferol Vit D3 [Vitamin D3 5,000 unit PO QDAY 04/08/14 04/05/19 01/20/19 09:00 1,000 UNIT TAB] Cyanocobalamin (Vitamin B-12) 5,000 mcg SL DAILY 04/08/14 04/05/19 01/20/19 [Vitamin B-12] Gabapentin 300 mg PO TID 04/08/14 04/05/19 01/20/19 Losartan [Cozaar] 50 mg PO QDAY 04/08/14 04/05/19 01/20/19 09:00 levETIRAcetam [Keppra TAB] 500 mg PO BID 04/08/14 04/05/19 01/20/19 09:00 AtorvaSTATin [Lipitor] 40 mg PO QDAY 04/26/16 04/05/19 01/20/19 Previous Rx's Medication Instructions Recorded Last Taken Type Insulin Glargine [Lantus VIAL] 6 units SQ QHS #1 vial 01/21/19 Unknown Rx Insulin Lispro [Admelog] 0 unit SQ AC #1 vial 01/21/19 Unknown Rx Cyanocobalamin [Vitamin B-12] 5,000 mcg PO QDAY tablet 04/07/19 Unknown Rx Insulin Glargine [Lantus VIAL] 6 units SUB-Q QHS units 04/07/19 Unknown Rx Lispro Insulin [HumaLOG] 0 unit SUB-Q AC units 04/07/19 Unknown Rx Losartan [Cozaar] 50 mg PO QDAY tablet 04/07/19 Unknown Rx guaiFENesin [Robitussin] 200 mg PO Q4H PRN oral.liqd 04/07/19 Unknown Rx HYDROcodone/APAP 5-325 [Shevlin 1 each PO Q6HR PRN #12 tablet 03/11/21 Unknown Rx 5/325] Allergies Allergy/AdvReac Type Severity Reaction Status Date / Time No Known Allergies Allergy Verified 04/05/19 15:36 ED Review of Systems ROS: Stated complaint: LT KNEE PAINS Other details as noted in HPI Comment: All other systems reviewed and negative Constitutional: denies: chills, fever Eyes: denies: eye pain, eye discharge, vision change ENT: denies: ear pain, throat pain Respiratory: denies: cough, shortness of breath, SOB with exertion, SOB at rest, wheezing Cardiovascular: denies: chest pain, palpitations, dyspnea on exertion, edema, syncope, paroxysmal nocturnal dyspnea Endocrine: no symptoms reported Gastrointestinal: denies: abdominal pain, nausea, diarrhea, constipation, hematemesis, hematochezia Genitourinary: denies: urgency, dysuria, discharge Musculoskeletal: joint swelling, arthralgia, myalgia. denies: back pain Skin: other (Bruising) Neurological: headache, abnormal gait. denies: numbness, paresthesias, confusion Psychiatric: denies: anxiety, depression, auditory hallucinations, visual hallucinations, homicidal thoughts, suicidal thoughts Hematological/Lymphatic: denies: easy bleeding, easy bruising, swollen glands ED Past Medical Hx - Past Medical History Previous Medical History?: Yes Hx Hypertension: Yes Hx CVA: Yes (2013, 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) Hx Congestive Heart Failure: No Hx Diabetes: Yes Hx Seizures: Yes Hx Kidney Stones: Yes Hx HIV: No - Surgical History Past Surgical History?: Yes Hx Cholecystectomy: Yes ([place] 1989) Additional Surgical History: Tumor removed from brain 2013 - Social History Smoking Status: Never Smoker Substance Use Type: None - Medications Home Medications: Home Medications Medication Instructions Recorded Confirmed Last Taken Type Aspirin [Aspirin BABY CHEW TAB] 81 mg PO QDAY 04/08/14 04/05/19 01/20/19 History Cholecalciferol Vit D3 [Vitamin D3 5,000 unit PO QDAY 04/08/14 04/05/19 01/20/19 09:00 History 1,000 UNIT TAB] Cyanocobalamin (Vitamin B-12) 5,000 mcg SL DAILY 04/08/14 04/05/19 01/20/19 History [Vitamin B-12] Gabapentin 300 mg PO TID 04/08/14 04/05/19 01/20/19 History Losartan [Cozaar] 50 mg PO QDAY 04/08/14 04/05/19 01/20/19 09:00 History levETIRAcetam [Keppra TAB] 500 mg PO BID 04/08/14 04/05/19 01/20/19 09:00 History AtorvaSTATin [Lipitor] 40 mg PO QDAY 04/26/16 04/05/19 01/20/19 History Insulin Glargine [Lantus VIAL] 6 units SQ QHS #1 vial 01/21/19 04/05/19 Unknown Rx Insulin Lispro [Admelog] 0 unit SQ AC #1 vial 01/21/19 04/05/19 Unknown Rx Cyanocobalamin [Vitamin B-12] 5,000 mcg PO QDAY tablet 04/07/19 Unknown Rx Insulin Glargine [Lantus VIAL] 6 units SUB-Q QHS units 04/07/19 Unknown Rx Lispro Insulin [HumaLOG] 0 unit SUB-Q AC units 04/07/19 Unknown Rx Losartan [Cozaar] 50 mg PO QDAY tablet 04/07/19 Unknown Rx guaiFENesin [Robitussin] 200 mg PO Q4H PRN oral.liqd 04/07/19 Unknown Rx HYDROcodone/APAP 5-325 [Shevlin 1 each PO Q6HR PRN #12 tablet 03/11/21 Unknown Rx 5/325] ED Physical Exam - General Limitations: No Limitations General appearance: alert, in no apparent distress - Head Head exam: Present: atraumatic, normocephalic, other (Very mild bruising and swelling noted to the left forehead area with very mild tenderness. No de formity, no crepitus or open wounds noted.) - Eye Eye exam: Present: normal appearance, PERRL, EOMI Pupils: Present: normal accommodation - ENT ENT exam: Present: normal exam, mucous membranes moist, TM's normal bilaterally - Neck Neck exam: Present: normal inspection, full ROM. Absent: tenderness - Respiratory Respiratory exam: Present: normal lung sounds bilaterally. Absent: respiratory distress, wheezes, rales, rhonchi - Cardiovascular Cardiovascular Exam: Present: regular rate, normal rhythm, normal heart sounds - GI/Abdominal GI/Abdominal exam: Present: soft. Absent: distended, tenderness, guarding, rebound, rigid - Extremities Exam Extremities exam: Present: other (Range of motion of the left hip, knee, ankle and foot not tested due to patient discomfort and pain) - Expanded Lower Extremity Exam Left Hip exam: Present: tenderness (Mild tenderness to palpation to the anterior lateral aspect of the left hip.) Upper Leg exam: Present: normal inspection. Absent: tenderness, swelling Knee exam: Present: tenderness (Moderate to severe tenderness to palpation to the anterior aspect of the left knee), swelling (Mild swelling noted to the anterior aspect of the left knee), ecchymosis (Mild ecchymosis noted to the anterior aspect of the left knee.). Absent: full ROM, deformity, crepidus, dislocation, erythema Lower Leg exam: Present: normal inspection. Absent: tenderness, swelling, abrasion Ankle exam: Present: normal inspection, tenderness (Mild tenderness to palpation to the medial aspect of the right ankle). Absent: swelling, abrasion, laceration, ecchymosis, deformity, crepidus, dislocation, erythema Foot/Toe exam: Present: tenderness (Moderate tenderness to palpation to the dorsal distal aspect of the foot), swelling (Mild noted to the dorsal distal aspect of the foot), ecchymosis (Mild noted to the dorsal distal aspect of the foot), tenderness at base of 5th metatarsal. Absent: abrasion, laceration, deformity, crepidus, dislocation, erythema, amputation, puncture wound, foreign body, subungual hematoma Neuro vascular tendon exam: Present: no vascular compromise. Absent: abnormal cap refill, motor deficit, sensory deficit Gait: Positive: not tested/not observed - Neurological Exam Neurological exam: Present: alert, oriented X3, CN II-XII intact - Psychiatric Psychiatric exam: Present: normal affect, normal mood - Skin Skin exam: Present: intact ED Course Vital Signs 03/11/21 03/11/21 15:39 17:19 Temperature 98.6 F Pulse Rate 87 Respiratory 16 16 Rate Blood Pressure 173/85 O2 Sat by Pulse 100 Oximetry ED Medical Decision Making - Radiology Data Radiology results: report reviewed Patient: ROSE APPIAH MR#: [id number] : 1945 Acct:[id number] Age/Sex: 76 / F ADM Date: 03/11/21 Loc: ED Attending Dr: Ordering Physician: GRAHAM PARTIDA Date of Service: 03/11/21 Procedure(s): XR hip 2-3V LT Accession Number(s): [id number] cc: GRAHAM PARTIDA Fluoro Time In Minutes: Pelvis and left hip 2 views INDICATION: Fall FINDINGS: Bilateral femoral heads well-seated in the acetabulum. No acute fracture dislocation. Superior and inferior pubic rami appear intact. Left hip 2 views INDICATION: Fall FINDINGS: There is a subtle fracture within the fourth metatarsal at the metatarsal neck distally. Mild angulation of the metatarsal heads of the second third toes as well. D iffuse soft tissue spine throughout the foot. IMPRESSION: Fourth metatarsal neck fracture distally. Diffuse soft tissue swelling throughout the foot. Left knee 3 views INDICATION: Pain FINDINGS: Alignment appears normal. There is cortical irregularity in the distal pole of the patella with overlying soft tissue swelling and edema. IMPRESSION: Inferior patellar pole fracture with overlying soft tissue edema and swelling. Signer Name: Marek Duarte MD Signed: 03/11/2021 4:59 PM Workstation Name: [id number] Transcribed By: CW Dictated By: KELLEN DUARTE MD Electronically Authenticated By: KELLEN DUARTE MD Signed Date/Time: 03/11/211658 DD/ 56 TD/TT: Patient: ROSE APPIAH MR#: [id number] : 1945 Acct:[id number] Age/Sex: 76 / F ADM Date: 03/11/21 Loc: ED Attending Dr: Ordering Physician: GRAHAM PARTIDA Date of Service: 03/11/21 Procedure(s): CT head/brain wo con Accession Number(s): [id number] cc: GRAHAM PARTIDA CT BRAIN: 03/11/2020 INDICATION / CLINICAL INFORMATION: head injury/fall. COMPARISON: 04/06/2019 FINDINGS: BRAIN/INTRACRANIAL STRUCTURES: Unenhanced CT images of the brain demonstrate no evidence of acute abnormality. Again seen is a prior left frontal craniotomy with a small amount of encephalomalacia in the left frontal lobe. Prominent diffuse cerebral atrophy is again noted. There is no evidence of acute large vessel territory ischemic injury, hemorrhage, or mass. There are no abnormal extra-axial fluid collections. Atherosclerotic vascular calcifications are present in the distal internal carotid arteries and vertebral arteries. EXTRACRANIAL STRUCTURES: Unremarkable. IMPRESSION: No acute abnormality. Postoperative changes. Chronic and age-related changes. No significant change when compared to a 06/16/2019. All CT scans at this location are performed using dose reduction to ALARA by means of automated exposure control. Signer Name: Kenn Rayo MD Signed: 03/11/2021 5:48 PM Workstation Name: [id number] Transcribed By: AO Dictated By: Kenn Rayo MD Electronically Authenticated By: Kenn Rayo MD Signed Date/Time: 03/11/211747 DD/ 45 TD/TT: Patient: ROSE APPIAH MR#: [id number] : 1945 Acct:[id number] Age/Sex: 76 / F ADM Date: 03/11/21 Loc: ED Attending Dr: Ordering Physician: GRAHAM PARTIDA Date of Service: 03/11/21 Procedure(s): CT cervical spine wo con Accession Number(s): [id number] cc: GRAHAM PARTIDA CT CERVICAL SPINE: 03/11/2021 INDICATION / CLINICAL INFORMATION: Fall/head injury. COMPARISON: None available. FINDINGS: CT images of the cervical spine were obtained. Images are evaluated in the axial, coronal, and sagittal planes. There is no evidence of acute abnormality. Degenerative disc space narrowing and osteophyte medicine is present at all levels. Incidental note is made of several areas of ossification of the nuchal ligament, and acquired degenerative process of no clinical significance. CRANIOCERVICAL JUNCTION: Unremarkable. PARASPINAL STRUCTURES: There are fairly numerous and prominent cervical lymph nodes present bilaterally, more and larger than is typically seen in a patient of this age. Possibility of metastatic disease or lymphoma must be considered. Diffuse adenopathy can also be reactive, although that is less common in patients of this age. There is there is a 3.2 cm right thyroid nodule present. IMPRESSION: 1. No evidence of acute osseous injury. 2. Prominent abnormal cervical adenopathy. 3. 3.2 cm right thyroid nodule. INCIDENTAL THYROID NODULE RECOMMENDATIONS Nonpalpable nodules detected on US or other anatomic imaging studies are termed incidentally discovered nodules or incidentalomas. Nonpalpable nodules have the same risk of malignancy as palpable nodules with the same size. Generally, only nodules >1 cm should be ev aluated, since they have a greater potential to be clinically significant cancers. (EMMETT, 2009). Follow up for incidental thyroid nodules <1 cm is not recommended. In patients <35 years with an incidental thyroid nodule detected on CT, MRI, or extrathyroidal ultrasound, dedicated thyroid ultrasound is recommended if the nodule is 1 cm, has no suspicious imaging features, and if the patient has normal life expectancy. In patients 35 years with an incidental thyroid nodule detected on CT, MRI, or extrathyroidal ultrasound, dedicated thyroid ultrasound is recommended if the nodule is 1.5 cm, has no suspicious imaging features, and if the patient has normal life expectancy. All CT scans at this location are performed using dose reduction to ALARA by means of automated exposure control. Signer Name: Kenn Rayo MD Signed: 03/11/2021 5:53 PM Workstation Name: [id number] Transcribed By: ANAY Dictated By: Kenn Rayo MD Electronically Authenticated By: Kenn Rayo MD Signed Date/Time: 03/11/211752 DD/ 48 TD/TT: - Medical Decision Making CT head shows nothing acute. CT cervical spine shows 1. No evidence of acute osseous injury. Prominent abnormal cervical adenopathy. 3.2 cm right thyroid nodule. Xray of left hip shows nothing acute Xray of left patellar shows Inferior patellar pole fracture with overlying soft tissue edema and swelling. Xray of left foot shows Fourth metatarsal neck fracture distally. Diffuse soft tissue swelling throughout the foot. Discussed x-ray results and CT results with patient and daughter. Short posterior fiberglass splint applied to left foot and knee immobilizer to left knee. Patient given walker. Patient leaves by herself but at a senior citizen apartment and the daughter states that the neighbors check on each other. The daughter is a flight test shop mechanic and travels back and forth to [place]. She states that she is off tomorrow but she will be gone for 2 days after but will return next week and she will try to get an appointment with the environmental programs specialist on a date that she is back in town is off. She states that patient's neighbors can check on her while she is gone for the next 2 days. I also discussed the abnormal lymph node findings on cervical spine CT with patient and daughter. Copy of the results were given to them so that patient can follow-up with her primary care doctor for further evaluation. Patient overall is nontoxic, not currently in any significant distress, she is well-appearing, she is mentally stable and neurologically intact. Patient stable at time of discharge . Critical care attestation.: If time is entered above; I have spent that time in minutes in the direct care of this critically ill patient, excluding procedure time. ED Disposition Clinical Impression: Patellar fracture, Metatarsal bone fracture, Head injury, closed, without LOC, Cervical lymphadenopathy Disposition: DC- TO HOME OR SELFCARE Is pt being admited?: No Does the pt Need Aspirin: No Condition: Stable Instructions: Head Injury, Adult, [id number], Metatarsal Fracture, Cast or Splint Care, Adult, Patellar Fracture, Adult Additional Instructions: USe the walker to help ambulate. Recommend elevating your leg as often. Try not to bear weigh on leg. It is important that you follow up with the environmental programs specialist in 3 to 5 days. Take the hydrocodone as needed for pain. If the hydrocodone is too strong you can just use regular Tylenol and/or 200 to 40 mg of ibuprofen from [id number] for pain. It is important that you follow-up with your primary care doctor about the abnormal lymph node seen on your CT of his cervical spine. Return to the ER if your symptoms changes or worsens in any way. Prescriptions: HYDROcodone/APAP 5-325 [Shevlin 5/325] 1 each PO Q6HR PRN #12 tablet PRN Reason: Pain Referrals: MED VASQUES MD [Staff Physician] - 3-5 Days Time of Disposition: 19:08
--- NOTE | 2021-03-11 17:03 | XRay Report ---
Pelvis and left hip 2 views INDICATION: Fall FINDINGS: Bilateral femoral heads well-seated in the acetabulum. No acute fracture dislocation. Super ior and inferior pubic rami appear intact. Left hip 2 views INDICATION: Fall FINDINGS: There is a subtle fracture within the fourth metatarsal at the metatarsal neck distally. Mi ld angulation of the metatarsal heads of the second third toes as well. Diffuse soft tissue spine thr oughout the foot. IMPRESSION: Fourth metatarsal neck fracture distally. Diffuse soft tissue swelling throughout the foot. Left knee 3 views INDICATION: Pain FINDINGS: Alignment appears normal. There is cortical irregularity in the distal pole of the patella with overlying soft tissue swelling and edema. IMPRESSION: Inferior patellar pole fracture with overlying soft tissue edema and swelling. Signer Name: Marek Duarte MD Signed: 03/11/2021 4:59 PM Workstation Name: [id number]
--- NOTE | 2021-03-11 17:53 | Cat Scan Report ---
CT BRAIN: 03/11/2020 INDICATION / CLINICAL INFORMATION: head injury/fall. COMPARISON: 04/06/2019 FINDINGS: BRAIN/INTRACRANIAL STRUCTURES: Unenhanced CT images of the brain demonstrate no evidence of acute abn ormality. Again seen is a prior left frontal craniotomy with a small amount of encephalomalacia in the left fro ntal lobe. Prominent diffuse cerebral atrophy is again noted. There is no evidence of acute large vessel territory ischemic injury, hemorrhage, or mass. There are no abnormal extra-axial fluid collections. Atherosclerotic vascular calcifications are present in the distal internal carotid arteries and verte bral arteries. EXTRACRANIAL STRUCTURES: Unremarkable. IMPRESSION: No acute abnormality. Postoperative changes. Chronic and age-related changes. No significant change when compared to a 06/16/2019. All CT scans at this location are performed using dose reduction to ALARA by means of automated expos ure control. Signer Name: Kenn Rayo MD Signed: 03/11/2021 5:48 PM Workstation Name: [id number]
--- NOTE | 2021-03-11 17:57 | Cat Scan Report ---
CT CERVICAL SPINE: 03/11/2021 INDICATION / CLINICAL INFORMATION: Fall/head injury. COMPARISON: None available. FINDINGS: CT images of the cervical spine were obtained. Images are evaluated in the axial, coronal, and sagitt al planes. There is no evidence of acute abnormality. Degenerative disc space narrowing and osteophyte medicine is present at all levels. Incidental note is made of several areas of ossification of the nuchal ligament, and acquired degener ative process of no clinical significance. CRANIOCERVICAL JUNCTION: Unremarkable. PARASPINAL STRUCTURES: There are fairly numerous and prominent cervical lymph nodes present bilateral ly, more and larger than is typically seen in a patient of this age. Possibility of metastatic diseas e or lymphoma must be considered. Diffuse adenopathy can also be reactive, although that is less comm on in patients of this age. There is there is a 3.2 cm right thyroid nodule present. IMPRESSION: 1. No evidence of acute osseous injury. 2. Prominent abnormal cervical adenopathy. 3. 3.2 cm right thyroid nodule. INCIDENTAL THYROID NODULE RECOMMENDATIONS Nonpalpable nodules detected on US or other anatomic imaging studies are termed incidentally discover ed nodules or incidentalomas. Nonpalpable nodules have the same risk of malignancy as palpable nodule s with the same size. Generally, only nodules >1 cm should be evaluated, since they have a greater po tential to be clinically significant cancers. (EMMETT, 2009). Follow up for incidental thyroid nodules <1 cm is not recommended. In patients <35 years with an incidental thyroid nodule detected on CT, MRI, or extrathyroidal ultras ound, dedicated thyroid ultrasound is recommended if the nodule is 1 cm, has no suspicious imaging fe atures, and if the patient has normal life expectancy. In patients 35 years with an incidental thyroid nodule detected on CT, MRI, or extrathyroidal ultraso und, dedicated thyroid ultrasound is recommended if the nodule is 1.5 cm, has no suspicious imaging f eatures, and if the patient has normal life expectancy. All CT scans at this location are performed using dose reduction to ALARA by means of automated expos ure control. Signer Name: Kenn Rayo MD Signed: 03/11/2021 5:53 PM Workstation Name: [id number]
== END 2021-03-11 20:30 | disposition home or self-care (01) ==
LOC: ED 13:26
DX: S82.002A Unspecified fracture of left patella, initial encounter for closed fracture (principal); S92.342A Displaced fracture of fourth metatarsal bone, left foot, initial encounter for closed fracture; S09.90XA Unspecified injury of head, initial encounter; R59.0 Localized enlarged lymph nodes; I10 Essential (primary) hypertension; E11.9 Type 2 diabetes mellitus without complications; R56.9 Unspecified convulsions; Z86.73 Personal history of transient ischemic attack (TIA), and cerebral infarction without residual deficits; Z98.890 Other specified postprocedural states; Z79.4 Long term (current) use of insulin; Z79.899 Other long term (current) drug therapy; W01.0XXA Fall on same level from slipping, tripping and stumbling without subsequent striking against object, initial encounter; Y93.89 Activity, other specified; Y92.89 Other specified places as the place of occurrence of the external cause; Y99.8 Other external cause status
CPT/HCPCS: 70450; 72125

== ENCOUNTER 2021-08-18 18:28 | Emergency (ER) | payer MEDICARE ==
--- NOTE | 2021-08-18 19:01 | Emergency Department Report ---
ED Altered Mental Status HPI - General Stated Complaint: LOW BLOOD SUGAR Time Seen by Provider: 08/18/21 19:00 - History of Present Illness Initial Comments: Patient was brought in by EMS secondary to altered mental status. They were found her to have hypoglycemia in the 20s. They gave her some oral glucose. This improved. Her mentation improved. She arrived here. She states that she still feels like she is in a fog. She has no chest pain or back pain. No abdominal pain. There is no vomiting or diarrhea. - Related Data Home Medications Medication Instructions Recorded Confirmed Last Taken Aspirin [Aspirin BABY CHEW TAB] 81 mg PO QDAY 04/08/14 04/05/19 01/20/19 Cholecalciferol Vit D3 [Vitamin D3 5,000 unit PO QDAY 04/08/14 04/05/19 01/20/19 09:00 1,000 UNIT TAB] Cyanocobalamin (Vitamin B-12) 5,000 mcg SL DAILY 04/08/14 04/05/19 01/20/19 [Vitamin B-12] Gabapentin 300 mg PO TID 04/08/14 04/05/19 01/20/19 Losartan [Cozaar] 50 mg PO QDAY 04/08/14 04/05/19 01/20/19 09:00 levETIRAcetam [Keppra TAB] 500 mg PO BID 04/08/14 04/05/19 01/20/19 09:00 AtorvaSTATin [Lipitor] 40 mg PO QDAY 04/26/16 04/05/19 01/20/19 Previous Rx's Medication Instructions Recorded Last Taken Type Insulin Glargine [Lantus VIAL] 6 units SQ QHS #1 vial 01/21/19 Unknown Rx Insulin Lispro [Admelog] 0 unit SQ AC #1 vial 01/21/19 Unknown Rx Cyanocobalamin [Vitamin B-12] 5,000 mcg PO QDAY tablet 04/07/19 Unknown Rx Insulin Glargine [Lantus VIAL] 6 units SUB-Q QHS units 04/07/19 Unknown Rx Lispro Insulin [HumaLOG] 0 unit SUB-Q AC units 04/07/19 Unknown Rx Losartan [Cozaar] 50 mg PO QDAY tablet 04/07/19 Unknown Rx guaiFENesin [Robitussin] 200 mg PO Q4H PRN oral.liqd 04/07/19 Unknown Rx HYDROcodone/APAP 5-325 [[place] 1 each PO Q6HR PRN #12 tablet 03/11/21 Unknown Rx 5/325] Allergies Allergy/AdvReac Type Severity Reaction Status Date / Time No Known Allergies Allergy Verified 04/05/19 15:36 ED Review of Systems ROS: Stated complaint: LOW BLOOD SUGAR Other details as noted in HPI Comment: All other systems reviewed and negative Constitutional: denies: fever Eyes: denies: vision change ENT: denies: throat pain Respiratory: denies: cough Cardiovascular: denies: chest pain Endocrine: denies: unexplained weight loss Gastrointestinal: denies: abdominal pain Genitourinary: denies: urgency Musculoskeletal: denies: back pain Skin: denies: rash Neurological: denies: headache Hematological/Lymphatic: denies: easy bruising ED Past Medical Hx - Past Medical History Hx Hypertension: Yes Hx CVA: Yes (2012, 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) Hx Congestive Heart Failure: No Hx Diabetes: Yes Hx Seizures: Yes Hx Kidney Stones: Yes Hx HIV: No - Surgical History Hx Cholecystectomy: Yes ([place] 1989) Additional Surgical History: Tumor removed from brain 2012 - Family History Family history: diabetes - Social History Smoking Status: Never Smoker Substance Use Type: None - Medications Home Medications: Home Medications Medication Instructions Recorded Confirmed Last Taken Type Aspirin [Aspirin BABY CHEW TAB] 81 mg PO QDAY 04/08/14 04/05/19 01/20/19 History Cholecalciferol Vit D3 [Vitamin D3 5,000 unit PO QDAY 04/08/14 04/05/19 01/20/19 09:00 History 1,000 UNIT TAB] Cyanocobalamin (Vitamin B-12) 5,000 mcg SL DAILY 04/08/14 04/05/19 01/20/19 History [Vitamin B-12] Gabapentin 300 mg PO TID 04/08/14 04/05/19 01/20/19 History Losartan [Cozaar] 50 mg PO QDAY 04/08/14 04/05/19 01/20/19 09:00 History levETIRAcetam [Keppra TAB] 500 mg PO BID 04/08/14 04/05/19 01/20/19 09:00 History AtorvaSTATin [Lipitor] 40 mg PO QDAY 04/26/16 04/05/19 01/20/19 History Insulin Glargine [Lantus VIAL] 6 units SQ QHS #1 vial 01/21/19 04/05/19 Unknown Rx Insulin Lispro [Admelog] 0 unit SQ AC #1 vial 01/21/19 04/05/19 Unknown Rx Cyanocobalamin [Vitamin B-12] 5,000 mcg PO QDAY tablet 04/07/19 Unknown Rx Insulin Glargine [Lantus VIAL] 6 units SUB-Q QHS units 04/07/19 Unknown Rx Lispro Insulin [HumaLOG] 0 unit SUB-Q AC units 04/07/19 Unknown Rx Losartan [Cozaar] 50 mg PO QDAY tablet 04/07/19 Unknown Rx guaiFENesin [Robitussin] 200 mg PO Q4H PRN oral.liqd 04/07/19 Unknown Rx HYDROcodone/APAP 5-325 [[place] 1 each PO Q6HR PRN #12 tablet 03/11/21 Unknown Rx 5/325] ED Physical Exam - General Limitations: No Limitations, Other (Pulse ox noted and normal per EMS) General appearance: alert, in no apparent distress - Head Head exam: Present: atraumatic, normocephalic - Eye Eye exam: Present: normal appearance, EOMI - ENT ENT exam: Present: mucous membranes dry, normal external ear exam - Neck Neck exam: Present: normal inspection, meningismus - Respiratory Respiratory exam: Present: normal lung sounds bilaterally. Absent: respiratory distress - Cardiovascular Cardiovascular Exam: Present: regular rate, normal rhythm - GI/Abdominal GI/Abdominal exam: Present: soft. Absent: tenderness - Extremities Exam Extremities exam: Present: normal capillary refill - Back Exam Back exam: Absent: CVA tenderness (R), CVA tenderness (L) - Neurological Exam Neurological exam: Present: alert, oriented X3, CN II-XII intact, reflexes normal. Absent: motor sensory deficit - Psychiatric Psychiatric exam: Present: normal affect, normal mood - Skin Skin exam: Present: warm ED Course - Reevaluation(s) Reevaluation #1: 08/18/21 19:00 ems met food given. Reevaluation #2: 08/18/21 20:03 Patient is awake and conversant. She is eating. She was discharged. - Lab Data Lab Results 08/18/21 Range/Units 18:55 POC Glucose 77 (70-105) mg/dL - Medical Decision Making Patient presents with altered mental status. She was found to have hypergl ycemia which was treated and addressed. She has had no recurrent hypoglycemic events. Mentation is normal. There is no altered sensorium suggestive of stroke, delirium, or metabolic derangement otherwise. She was discharged. Critical Care Time: No Critical care attestation.: If time is entered above; I have spent that time in minutes in the direct care of this critically ill patient, excluding procedure time. ED Disposition Clinical Impression: Hypoglycemia Disposition: 01 HOME / SELF CARE / HOMELESS Is pt being admited?: No Condition: Stable Instructions: Hypoglycemia, [id number], Blood Glucose Monitoring, Adult Additional Instructions: Decrease your diabetes medicine by 50%. Eat regular meals. Return for problems. Follow-up with your regular doctor for recheck. Referrals: PRIMARY CARE, [Referring] - 3-5 Days
[2021-08-19 05:30] VITALS: BP 115/89
== END 2021-08-18 22:00 | disposition home or self-care (01) ==
LOC: ED 18:28
DX: E11.649 Type 2 diabetes mellitus with hypoglycemia without coma (principal); I10 Essential (primary) hypertension
CPT/HCPCS: 82962; 99283

== ENCOUNTER 2021-11-03 22:03 | Observation (INO) | payer MEDICARE ==
--- NOTE | 2021-11-04 | Cat Scan Report ---
CT HEAD WITHOUT CONTRAST INDICATION / CLINICAL INFORMATION: Confusion, hyperglycemia. TECHNIQUE: CT of the head was performed without administration of intravenous contrast. All CT scans at this location are performed using CT dose reduction for ALARA by means of automated exposure contr ol. COMPARISON: CT head 03/11/2021 FINDINGS: CEREBRAL PARENCHYMA: Generalized cortical and central atrophy. Periventricular regions of white matte r hypoattenuation compatible with microvascular ischemia. Postoperative encephalomalacia anterior lef t frontal lobe stable. HEMORRHAGE: None. EXTRA-AXIAL SPACES: Normal in size and morphology for the patient's age. VENTRICULAR SYSTEM: Normal in size and morphology for the patient's age. MIDLINE SHIFT / HERNIATION: None. CEREBELLUM / BRAINSTEM: No significant abnormality. ORBITS: Prior bilateral cataract surgery. SOFT TISSUES: No significant abnormality. Surgical clips are suggested within the right side. Ventricular soft tissues. SKULL: Stable left frontal craniotomy defect. PARANASAL SINUSES / MASTOID AIR CELLS: Normal as visualized. ADDITIONAL FINDINGS: None. IMPRESSION: 1. Stable appearance of the brain. No interval acute findings are demonstrated. Signer Name: Emanuel Hernandez II, MD Signed: 11/03/2021 11:56 PM Workstation Name: [id number]
--- NOTE | 2021-11-04 00:03 | XRay Report ---
CHEST 1 VIEW INDICATION / CLINICAL INFORMATION: Confusion, hyperglycemia. COMPARISON: Chest x-ray 04/05/2019 FINDINGS: SUPPORT DEVICES: None. HEART / MEDIASTINUM: No significant abnormality. LUNGS / PLEURA: Stable small calcified granuloma left upper lung. The lungs are otherwise clear. No p neumothorax. ADDITIONAL FINDINGS: No significant additional findings. Prior cholecystectomy, stable. IMPRESSION: 1. No active cardiopulmonary disease. Signer Name: Emanuel Hernandez II, MD Signed: 11/03/2021 11:59 PM Workstation Name: [id number]
[2021-11-04 00:06] LABS: Alanine Aminotransferase 14 units/L (7-56); Albumin 4.3 g/dL (3.9-5); BUN/Creatinine Ratio 19; Blood Urea Nitrogen 25 mg/dL (7-17); Calcium 9.3 mg/dL (8.4-10.2); Hemolysis Index 29
[2021-11-04] MEDS ORDERED: INSULIN REGULAR, HUMAN 100 UNITS/1 ML IV ONE (00:23)
[2021-11-04] MEDS ORDERED: LACTATED RINGERS 1,000 ML IV ONE (00:23)
--- NOTE | 2021-11-04 00:26 | Emergency Department Report ---
ED General Adult HPI - General Chief complaint: Altered Mental Status Stated complaint: HYPERTENSION/HYPERGLYCEMIA Time Seen by Provider: 11/03/21 22:21 Source: patient, family, EMS ( EMS documentation not available at time of chart dictation ), RN notes reviewed, old records reviewed Limitations: Other (Altered mental status and confusion) - History of Present Illness Initial comments: This patient is a 76-year-old female. Her past medical history includes type 2 diabetes, hypertension, seizure disorder, history of brain tumor status post resection, left-sided hemiparesis. She also has a history of renal insufficiency. She presents to the ER today with the patient stating that a family member called 911. She is not sure why the aforementioned family member called 911. She denies physical pain. She states that she is taking her medications including her insulin and hypertensive medication. She currently denies headache, neck pain, chest pain, abdominal pain, shortness of breath, nausea, vomiting diarrhea. She does report that she feels like her blood sugar has been high. Patient not currently accompanied by friends or family at this time for collateral information or or additional information. Contacted patient's daughter, Ms. Noel Crawford; [phone] Patient's daughter states that she herself is a flight dispatcher who lives in [place]. She reports that the patient lives at home by herself, and is quite independent at baseline. She states that she is the patient's daughter, reports that she did not call 911. Therefore, at this point time, it is unclear who contacted 911. -: unknown Severity scale (0 -10): 0 - Related Data Home Medications Medication Instructions Recorded Confirmed Last Taken Aspirin [Aspirin BABY CHEW TAB] 81 mg PO QDAY 04/08/14 04/05/19 01/20/19 Cholecalciferol Vit D3 [Vitamin D3 5,000 unit PO QDAY 04/08/14 04/05/19 01/20/19 09:00 1,000 UNIT TAB] Cyanocobalamin (Vitamin B-12) 5,000 mcg SL DAILY 04/08/14 04/05/19 01/20/19 [Vitamin B-12] Gabapentin 300 mg PO TID 04/08/14 04/05/19 01/20/19 Losartan [Cozaar] 50 mg PO QDAY 04/08/14 04/05/19 01/20/19 09:00 levETIRAcetam [Keppra TAB] 500 mg PO BID 04/08/14 04/05/19 01/20/19 09:00 AtorvaSTATin [Lipitor] 40 mg PO QDAY 04/26/16 04/05/19 01/20/19 Previous Rx's Medication Instructions Recorded Last Taken Type Insulin Glargine [Lantus VIAL] 6 units SQ QHS #1 vial 01/21/19 Unknown Rx Insulin Lispro [Admelog] 0 unit SQ AC #1 vial 01/21/19 Unknown Rx Cyanocobalamin [Vitamin B-12] 5,000 mcg PO QDAY tablet 04/07/19 Unknown Rx Insulin Glargine [Lantus VIAL] 6 units SUB-Q QHS units 04/07/19 Unknown Rx Lispro Insulin [HumaLOG] 0 unit SUB-Q AC units 04/07/19 Unknown Rx Losartan [Cozaar] 50 mg PO QDAY tablet 04/07/19 Unknown Rx guaiFENesin [Robitussin] 200 mg PO Q4H PRN oral.liqd 04/07/19 Unknown Rx HYDROcodone/APAP 5-325 [[place] 1 each PO Q6HR PRN #12 tablet 03/11/21 Unknown Rx 5/325] Allergies Allergy/AdvReac Type Severity Reaction Status Date / Time No Known Allergies Allergy Verified 04/05/19 15:36 ED Review of Systems ROS: Stated complaint: HYPERTENSION/HYPERGLYCEMIA Other details as noted in HPI Constitutional: denies: fever Eyes: denies: eye discharge ENT: denies: epistaxis Respiratory: denies: cough Cardiovascular: denies: chest pain Gastrointestinal: denies: abdominal pain Genitourinary: denies: dysuria Neurological: weakness, confusion ED Past Medical Hx - Past Medical History Hx Hypertension: Yes Hx CVA: Yes (2012, 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) Hx Congestive Heart Failure: No Hx Diabetes: Yes Hx Seizures: Yes Hx Kidney Stones: Yes Hx HIV: No - Surgical History Hx Cholecystectomy: Yes ([place] 1989) Additional Surgical History: Tumor removed from brain 2012 - Social History Smoking Status: Never Smoker Substance Use Type: None - Medications Home Medications: Home Medications Medication Instructions Recorded Confirmed Last Taken Type Aspirin [Aspirin BABY CHEW TAB] 81 mg PO QDAY 04/08/14 04/05/19 01/20/19 History Cholecalciferol Vit D3 [Vitamin D3 5,000 unit PO QDAY 04/08/14 04/05/19 01/20/19 09:00 History 1,000 UNIT TAB] Cyanocobalamin (Vitamin B-12) 5,000 mcg SL DAILY 04/08/14 04/05/19 01/20/19 History [Vitamin B-12] Gabapentin 300 mg PO TID 04/08/14 04/05/19 01/20/19 History Losartan [Cozaar] 50 mg PO QDAY 04/08/14 04/05/19 01/20/19 09:00 History levETIRAcetam [Keppra TAB] 500 mg PO BID 04/08/14 04/05/19 01/20/19 09:00 History AtorvaSTATin [Lipitor] 40 mg PO QDAY 04/26/16 04/05/19 01/20/19 History Insulin Glargine [Lantus VIAL] 6 units SQ QHS #1 vial 01/21/19 04/05/19 Unknown Rx Insulin Lispro [Admelog] 0 unit SQ AC #1 vial 01/21/19 04/05/19 Unknown Rx Cyanocobalamin [Vitamin B-12] 5,000 mcg PO QDAY tablet 04/07/19 Unknown Rx Insulin Glargine [Lantus VIAL] 6 units SUB-Q QHS units 04/07/19 Unknown Rx Lispro Insulin [HumaLOG] 0 unit SUB-Q AC units 04/07/19 Unknown Rx Losartan [Cozaar] 50 mg PO QDAY tablet 04/07/19 Unknown Rx guaiFENesin [Robitussin] 200 mg PO Q4H PRN oral.liqd 04/07/19 Unknown Rx HYDROcodone/APAP 5-325 [[place] 1 each PO Q6HR PRN #12 tablet 03/11/21 Unknown Rx 5/325] ED Physical Exam - General Limitations: Other (Patient is somewhat confused and a poor historian) General appearance: alert, anxious - Head Head exam: Present: atraumatic, normocephalic - Eye Eye exam: Present: normal appearance, EOMI, other (Visual acuity intact to finger counting and color perception at a close distance). Absent: nystagmus - ENT ENT exam: Present: normal exam, normal orophraynx, mucous membranes moist, normal external ear exam - Neck Neck exam: Present: normal inspection, full ROM. Absent: tenderness, meningismus - Respiratory Respiratory exam: Present: normal lung sounds bilaterally. Absent: respiratory distress, wheezes, rales, rhonchi, stridor, decreased breath sounds - Cardiovascular Cardiovascular Exam: Present: regular rate, normal rhythm, normal heart sounds. Absent: bradycardia, tachycardia, irregular rhythm, systolic murmur, diastolic murmur, rubs, gallop - GI/Abdominal GI/Abdominal exam: Present: soft. Absent: distended, tenderness, guarding, rebound, rigid, pulsatile mass - Extremities Exam Extremities exam: Present: normal inspection, full ROM, other (2+ pulses noted in the bilateral upper and lower extremities. There is no palpable cord. negative Homans sign. Muscular compartments are soft. The pelvis is stable.). Absent: pedal edema, calf tenderness - Back Exam Back exam: Present: normal inspection. Absent: tenderness, CVA tenderness (R), CVA tenderness (L), paraspinal tenderness, vertebral tenderness - Neurological Exam Neurological exam: Present: alert (Patient is awake and alert to name, place, location.), oriented X3, reflexes normal, other (There is no facial droop. The tongue is midline. EOMI. 5 out of 5 strength right arm and right leg. 5 out of 5 strength left arm and left leg. Sensation intact to light touch in 4 extremities.) - Psychiatric Psychiatric exam: Present: anxious - Skin Skin exam: Present: warm, dry, intact, normal color. Absent: rash ED Course Vital Signs 11/03/21 11/03/21 23:00 23:04 Temperature 98.7 F Pulse Rate 87 91 H Respiratory 15 19 Rate Blood Pressure 202/94 [Left] O2 Sat by Pulse 98 98 Oximetry - Reevaluation(s) Reevaluation #1: 11/04/21 00:34 Differential diagnosis, including but not limited to: Hyperglycemia, pneumonia, urinary tract infection, thyroid derangement, electrolyte derangement, intracranial bleeding, Hypertensive urgency Assessment and plan: 76-year-old female who is confused as to how she specifically got to the emergency room, with a nonfocal motor and neuro exam, no obvious hemiparesis on my exam, who is awake, alert, oriented, and sober, presenting with hypertensive urgency, hyperglycemia, renal insufficiency, lactic acidosis. Urinalysis is pending. CBC is pending. Multiple requests have been made to nursing team, as well as laboratory to result urinalysis and CBC. Patient will be covered empirically with fluids, insulin, and ceftriaxone. Hospital physician, Dr. Morris to admit to [facility] I discussed this plan of care with the patient's daughter, who articulated understanding. ED Medical Decision Making - Lab Data Result diagrams: 11/03/21 23:20 Vital Signs 11/03/21 11/03/21 23:00 23:04 Temperature 98.7 F Pulse Rate 87 91 H Respiratory 15 19 Rate Blood Pressure 202/94 [Left] O2 Sat by Pulse 98 98 Oximetry Lab Results 11/03/21 11/03/21 11/03/21 Range/Units 23:20 23:20 23:20 VBG pH (7.320-7.420) Sodium 130 L (137-145) mmol/L Potassium 4.5 (3.6-5.0) mmol/L Chloride 90.8 L (98-107) mmol/L Carbon Dioxide 22 (22-30) mmol/L Anion Gap 22 mmol/L BUN 25 H (7-17) mg/dL Creatinine 1.3 H (0.6-1.2) mg/dL Estimated GFR 48 ml/min BUN/Creatinine Ratio 19 % Glucose 538 H* (65-100) mg/dL Lactic Acid 4.30 H* (0.7-2.0) mmol/L Calcium 9.3 (8.4-10.2) mg/dL Magnesium (1.7-2.3) mg/dL Total Bilirubin 0.20 (0.1-1.2) mg/dL AST 14 (5-40) units/L ALT 14 (7-56) units/L Alkaline Phosphatase 185 H (35-129) units/L Total Creatine Kinase 65 (30-135) units/L Troponin T < 0.010 (0.00-0.029) ng/mL Total Protein 8.3 H (6.3-8.2) g/dL Albumin 4.3 (3.9-5) g/dL Albumin/Globulin Ratio 1.1 % TSH (0.270-4.200) mlU/mL Salicylates < 0.3 L (2.8-20.0) mg/dL Acetaminophen (10.0-30.0) ug/mL Plasma/Serum Alcohol (0-0.07) % 11/03/21 11/03/21 11/03/21 Range/Units 23:20 23:20 23:20 VBG pH (7.320-7.420) Sodium (137-145) mmol/L Potassium (3.6-5.0) mmol/L Chloride (98-107) mmol/L Carbon Dioxide (22-30) mmol/L Anion Gap mmol/L BUN (7-17) mg/dL Creatinine (0.6-1.2) mg/dL Estimated GFR ml/min BUN/Creatinine Ratio % Glucose (65-100) mg/dL Lactic Acid (0.7-2.0) mmol/L Calcium (8.4-10.2) mg/dL Magnesium 2.60 H (1.7-2.3) mg/dL Total Bilirubin (0.1-1.2) mg/dL AST (5-40) units/L ALT (7-56) units/L Alkaline Phosphatase (35-129) units/L Total Creatine Kinase (30-135) units/L Troponin T (0.00-0.029) ng/mL Total Protein (6.3-8.2) g/dL Albumin (3.9-5) g/dL Albumin/Globulin Ratio % TSH (0.270-4.200) mlU/mL Salicylates (2.8-20.0) mg/dL Acetaminophen 5.0 L (10.0-30.0) ug/mL Plasma/Serum Alcohol < 0.01 (0-0.07) % 11/03/21 11/03/21 Range/Units 23:20 23:20 VBG pH 7.358 (7.320-7.420) Sodium (137-145) mmol/L Potassium (3.6-5.0) mmol/L Chloride (98-107) mmol/L Carbon Dioxide (22-30) mmol/L Anion Gap mmol/L BUN (7-17) mg/dL Creatinine (0.6-1.2) mg/dL Estimated GFR ml/min BUN/Creatinine Ratio % Glucose (65-100) mg/dL Lactic Acid (0.7-2.0) mmol/L Calcium (8.4-10.2) mg/dL Magnesium (1.7-2.3) mg/dL Total Bilirubin (0.1-1.2) mg/dL AST (5-40) units/L ALT (7-56) units/L Alkaline Phosphatase (35-129) units/L Total Creatine Kinase (30-135) units/L Troponin T (0.00-0.029) ng/mL Total Protein (6.3-8.2) g/dL Albumin (3.9-5) g/dL Albumin/Globulin Ratio % TSH 2.250 (0.270-4.200) mlU/mL Salicylates (2.8-20.0) mg/dL Acetaminophen (10.0-30.0) ug/mL Plasma/Serum Alcohol (0-0.07) % - EKG Data -: EKG Interpreted by Nv EKG shows normal: sinus rhythm Rate: normal - EKG Data 11/04/21 00:25 - Radiology Data Radiology results: pending, report reviewed, image reviewed CT HEAD WITHOUT CONTRAST INDICATION / CLINICAL INFORMATION: Confusion, hyperglycemia. TECHNIQUE: CT of the head was performed without administration of intravenous contrast. All CT scans at this location are performed using CT dose reduction for ALARA by means of automated exposure control. COMPARISON: CT head 03/11/2021 FINDINGS: CEREBRAL PARENCHYMA: Generalized cortical and central atrophy. Periventricular regions of white matter hypoattenuation compatible with microvascular ischemia. Postoperative encephalomalacia anterior left frontal lobe stable. HEMORRHAGE: None. EXTRA-AXIAL SPACES: Normal in size and morphology for the patient's age. VENTRICULAR SYSTEM: Normal in size and morpho logy for the patient's age. MIDLINE SHIFT / HERNIATION: None. CEREBELLUM / BRAINSTEM: No significant abnormality. ORBITS: Prior bilateral cataract surgery. SOFT TISSUES: No significant abnormality. Surgical clips are suggested within the right side. Ventricular soft tissues. SKULL: Stable left frontal craniotomy defect. PARANASAL SINUSES / MASTOID AIR CELLS: Normal as visualized. ADDITIONAL FINDINGS: None. IMPRESSION: 1. Stable appearance of the brain. No interval acute findings are demonstrated. Signer Name: Emanuel Hernandez II, MD Signed: 11/03/2021 10:56 PM Workstation Name: [id number] CHEST 1 VIEW INDICATION / CLINICAL INFORMATION: Confusion, hyperglycemia. COMPARISON: Chest x-ray 04/05/2019 FINDINGS: SUPPORT DEVICES: None. HEART / MEDIASTINUM: No significant abnormality. LUNGS / PLEURA: Stable small calcified granuloma left upper lung. The lungs are otherwise clear. No pneumothorax. ADDITIONAL FINDINGS: No significant additional findings. Prior cholecystectomy, stable. IMPRESSION: 1. No active cardiopulmonary disease. Signer Name: Emanuel Hernandez II, MD Signed: 11/03/2021 10:59 PM Workstation Name: [id number] Critical Care Time: Yes Critical care time in (mins) excluding proc time.: 35 Critical care attestation.: If time is entered above; I have spent that time in minutes in the direct care of this critically ill patient, excluding procedure time. ED Disposition Clinical Impression: Hyperglycemia, Renal insufficiency, Lactic acidosis, Confusion Disposition: ADMITTED INPATIENT Is pt being admited?: Yes Does the pt Need Aspirin: No Condition: Fair Referrals: JADEN HOLM MD [Primary Care Provider] - 3-5 Days
[2021-11-04] MEDS ORDERED: amLODIPine 5 MG TAB PO ONE (00:28)
[2021-11-04] MEDS ORDERED: SODIUM CHLORIDE 0.9% 1000 ML 2,000 ML IV ONE (00:28)
[2021-11-04] MEDS ORDERED: cefTRIAXone/NS 1 GM/50 ML 1 GM/50 ML BAG IV ONE (00:28)
[2021-11-04 00:37] LABS: Hematocrit 39.6 % (30.3-42.9); Hemoglobin 13.2 gm/dl (10.1-14.3); Mean Corpuscular HGB Conc 33 % (30-34); Mean Corpuscular Volume 93 fl (79-97); Platelet Count 313 K/mm3 (140-440); Red Blood Count 4.24 M/mm3 (3.65-5.03); Red Cell Distribution Width 13.3 % (13.2-15.2)
[2021-11-04 00:38] LABS: INR 0.81 (0.87-1.13)
[2021-11-04 00:44] LABS: Bacteria,Urine 2+ /HPF (Negative); Bilirubin,Urine NEG (Negative); Blood,Urine NEG (Negative); Color,Urine Colorless (Yellow); Mucus,Urine FEW /HPF; Protein,Urine <15 mg/dL mg/dL (Negative); Urobilinogen,Urine < 2.0 mg/dL (<2.0)
[2021-11-04] MEDS ORDERED: MORPHINE 2 MG/1 ML INJ IV PRN (02:15)
[2021-11-04] MEDS ORDERED: ACETAMINOPHEN 325 MG TAB PO PRN (02:15)
[2021-11-04] MEDS ORDERED: HYDROmorphone 1 MG/1 ML INJ IV PRN (02:15)
[2021-11-04] MEDS ORDERED: ONDANSETRON 4 MG/2 ML INJ IV PRN (02:15)
[2021-11-04] MEDS ORDERED: ALBUTEROL 2.5 MG/3 ML NEBU IH PRN (02:15)
[2021-11-04] MEDS ORDERED: guaiFENesin 100 MG/5 ML ORAL LIQD PO PRN (02:18)
--- NOTE | 2021-11-04 02:24 | History and Physical Report ---
History of Present Illness Date of examination: 11/04/21 Date of admission: 11/04/21 Chief complaint: Altered mental status Confusion Hyperglycemia History of present illness: 76 years old female with history of diabetes hypertension, seizure disorder, brain tumor status post resection, left-sided hemiparesis and renal insufficiency was brought to the emergency room because of altered mental status and confusion. Patient presents to the ER today with the patient stating that a family member called 911. She is not sure why the aforementioned family member called 911. She denies physical pain. She states that she is taking her medications including her insulin and hypertensive medication. She currently denies headache, neck pain, chest pain, abdominal pain, shortness of breath, nausea, vomiting diarrhea. She does report that she feels like her blood sugar has been high. In the emergency room patient is found to have blood glucose of 538, lactic acid 4.30, bicarb 22, anion gap 22, BUN [address] scan shows stable appearance of the brain. No interval acute finding . We are going to admit the patient I put the patient on IV fluid, insulin sliding scale and consult diabetic education Past History Past Medical History: diabetes, hypertension, renal failure, seizures, other (History of brain tumor status post resection, left-sided hemiparesis) Past Surgical History: Other (History of brain tumor status post resection, left-sided hemiparesis) Social history: other (Never a smoker) Family history: no significant family history Medications and Allergies Allergies Allergy/AdvReac Type Severity Reaction Status Date / Time No Known Allergies Allergy Verified 04/05/19 15:36 Home Medications Medication Instructions Recorded Confirmed Last Taken Type Aspirin [Aspirin BABY CHEW TAB] 81 mg PO QDAY 04/08/14 04/05/19 01/20/19 History Cholecalciferol Vit D3 [Vitamin D3 5,000 unit PO QDAY 04/08/14 04/05/19 01/20/19 09:00 History 1,000 UNIT TAB] Cyanocobalamin (Vitamin B-12) 5,000 mcg SL DAILY 04/08/14 04/05/19 01/20/19 History [Vitamin B-12] Gabapentin 300 mg PO TID 04/08/14 04/05/19 01/20/19 History Losartan [Cozaar] 50 mg PO QDAY 04/08/14 04/05/19 01/20/19 09:00 History levETIRAcetam [Keppra TAB] 500 mg PO BID 04/08/14 04/05/19 01/20/19 09:00 History AtorvaSTATin [Lipitor] 40 mg PO QDAY 04/26/16 04/05/19 01/20/19 History Insulin Glargine [Lantus VIAL] 6 units SQ QHS #1 vial 01/21/19 04/05/19 Unknown Rx Insulin Lispro [Admelog] 0 unit SQ AC #1 vial 01/21/19 04/05/19 Unknown Rx Cyanocobalamin [Vitamin B-12] 5,000 mcg PO QDAY tablet 04/07/19 Unknown Rx Insulin Glargine [Lantus VIAL] 6 units SUB-Q QHS units 04/07/19 Unknown Rx Lispro Insulin [HumaLOG] 0 unit SUB-Q AC units 04/07/19 Unknown Rx Losartan [Cozaar] 50 mg PO QDAY tablet 04/07/19 Unknown Rx guaiFENesin [Robitussin] 200 mg PO Q4H PRN oral.liqd 04/07/19 Unknown Rx HYDROcodone/APAP 5-325 [Wilber 1 each PO Q6HR PRN #12 tablet 03/11/21 Unknown Rx 5/325] Review of Systems Constitutional: weakness, other (Confusion, and altered mental status) Exam - Constitutional Vitals: Temp Pulse Resp BP Pulse Ox 98.0 F 88 19 191/86 97 11/04/21 01:12 11/04/21 01:12 11/04/21 01:12 11/04/21 01:12 11/04/21 01:12 General appearance: Present: no acute distress, well-nourished - EENT Eyes: Present: PERRL ENT: hearing intact, clear oral mucosa - Neck Neck: Present: supple, normal ROM - Respiratory Respiratory effort: normal Respiratory: bilateral: CTA - Cardiovascular Heart Sounds: Present: S1 & S2. Absent: rub, click - Extremities Extremities: pulses symmetrical, No edema Peripheral Pulses: within normal limits - Abdominal General gastrointestinal: Present: soft, non-tender, non-distended, normal bowel sounds Female genitourinary: Present: normal - Integumentary Integumentary: Present: clear, warm, dry - Musculoskeletal Musculoskeletal: gait normal, strength equal bilaterally - Psychiatric Psychiatric: other (Confused) - Neurologic Neurologic: CNII-XII intact, moves all extremities, other (Confused) HEART Score - HEART Score Troponin: Troponin T < 0.010 ng/mL (0.00-0.029) 11/03/21 23:20 Results - Labs CBC & Chem 7: 11/03/21 23:20 11/03/21 23:20 Labs: Laboratory Last Values WBC 7.7 K/mm3 (4.5-11.0) 11/03/21 23:20 RBC 4.24 M/mm3 (3.65-5.03) 11/03/21 23:20 Hgb 13.2 gm/dl (10.1-14.3) 11/03/21 23:20 Hct 39.6 % (30.3-42.9) 11/03/21 23:20 MCV 93 fl (79-97) 11/03/21 23:20 MCH 31 pg (28-32) 11/03/21 23:20 MCHC 33 % (30-34) 11/03/21 23:20 RDW 13.3 % (13.2-15.2) 11/03/21 23:20 Plt Count 313 K/mm3 (140-440) 11/03/21 23:20 Lymph % (Auto) Net Developer Contract 11/03/21 23:20 [place] % (Auto) Net Developer Contract 11/03/21 23:20 Eos % (Auto) Net Developer Contract 11/03/21 23:20 Baso % (Auto) Net Developer Contract 11/03/21 23:20 Lymph # (Auto) Net Developer Contract 11/03/21 23:20 [place] # (Auto) Net Developer Contract 11/03/21 23:20 Eos # (Auto) Net Developer Contract 11/03/21 23:20 Baso # (Auto) Net Developer Contract 11/03/21 23:20 Seg Neutrophils % Net Developer Contract 11/03/21 23:20 Seg Neutrophils # Net Developer Contract 11/03/21 23:20 PT 12.0 Sec. (12.2-14.9) L 11/03/21 23:20 INR 0.81 (0.87-1.13) L 11/03/21 23:20 APTT 23.0 Sec. (24.2-36.6) L 11/03/21 23:20 VBG pH 7.358 (7.320-7.420) 11/03/21 23:20 Sodium 130 mmol/L (137-145) L 11/03/21 23:20 Potassium 4.5 mmol/L (3.6-5.0) 11/03/21 23:20 Chloride 90.8 mmol/L (98-107) L 11/03/21 23:20 Carbon Dioxide 22 mmol/L (22-30) 11/03/21 23:20 Anion Gap 22 mmol/L 11/03/21 23:20 BUN 25 mg/dL (7-17) H 11/03/21 23:20 Creatinine 1.3 mg/dL (0.6-1.2) H 11/03/21 23:20 Estimated GFR 48 ml/min 11/03/21 23:20 BUN/Creatinine Ratio 19 % 11/03/21 23:20 Glucose 538 mg/dL (65-100) H* 11/03/21 23:20 POC Glucose 396 mg/dL (70-105) H 11/04/21 00:48 Lactic Acid 3.80 mmol/L (0.7-2.0) H* 11/04/21 00:52 Calcium 9.3 mg/dL (8.4-10.2) 11/03/21 23:20 Magnesium 2.60 mg/dL (1.7-2.3) H 11/03/21 23:20 Total Bilirubin 0.20 mg/dL (0.1-1.2) 11/03/21 23:20 AST 14 units/L (5-40) 11/03/21 23:20 ALT 14 units/L (7-56) 11/03/21 23:20 Alkaline Phosphatase 185 units/L (35-129) H 11/03/21 23:20 Ammonia 26.0 umol/L (25-60) 11/03/21 23:20 Total Creatine Kinase 65 units/L (30-135) 11/03/21 23:20 Troponin T < 0.010 ng/mL (0.00-0.029) 11/03/21 23:20 Total Protein 8.3 g/dL (6.3-8.2) H 11/03/21 23:20 Albumin 4.3 g/dL (3.9-5) 11/03/21 23:20 Albumin/Globulin Ratio 1.1 % 11/03/21 23:20 TSH 2.250 mlU/mL (0.270-4.200) 11/03/21 23:20 Urine Color Colorless (Yellow) 11/04/21 00:34 Urine Turbidity Clear (Clear) 11/04/21 00:34 Urine pH 6.0 (5.0-7.0) 11/04/21 00:34 Ur Specific [place] 1.013 (1.003-1.030) 11/04/21 00:34 Urine Protein <15 mg/dl mg/dL (Negative) 11/04/21 00:34 Urine Glucose (UA) >=500 mg/dL (Negative) 11/04/21 00:34 Urine Ketones Neg mg/dL (Negative) 11/04/21 00:34 Urine Blood Neg (Negative) 11/04/21 00:34 Urine Nitrite Neg (Negative) 11/04/21 00:34 Urine Bilirubin Neg (Negative) 11/04/21 00:34 Urine Urobilinogen < 2.0 mg/dL (<2.0) 11/04/21 00:34 Ur Leukocyte Esterase Tr (Negative) 11/04/21 00:34 Urine WBC (Auto) 5.0 /HPF (0.0-6.0) 11/04/21 00:34 Urine RBC (Auto) 2.0 /HPF (0.0-6.0) 11/04/21 00:34 U Epithel Cells (Auto) 3.0 /HPF (0-13.0) 11/04/21 00:34 Urine Bacteria (Auto) 2+ /HPF (Negative) 11/04/21 00:34 Urine Mucus Few /HPF 11/04/21 00:34 Salicylates < 0.3 mg/dL (2.8-20.0) L 11/03/21 23:20 Acetaminophen 5.0 ug/mL (10.0-30.0) L 11/03/21 23:20 Plasma/Serum Alcohol < 0.01 % (0-0.07) 11/03/21 23:20 - Imaging and Cardiology Chest x-ray: report reviewed CT Scan - head: report reviewed Assessment and Plan VTE prophylaxis?: Chemical Plan of care discussed with patient/family: Yes - Patient Problems (1) Acute metabolic encephalopathy Current Visit: Yes Status: Acute Plan to address problem: Admit the patient to the medical floor. Metabolic encephalopathy secondary to hyperglycemia lactic acidosis. We put the patient on half-normal saline at the rate of 125 cc/h. Insulin sliding scale high dose. Consult diabetic education recheck CBC BMP in the morning (2) Hyperglycemia Current Visit: Yes Status: Acute Plan to address problem: We will put the patient on diabetic diet. Humalog sliding scale high dose with Accu-Chek before meals and at bedtime. Lantus 6 mg subcu nightly. Diabetic education. BMP in the morning (3) Lactic acidosis Current Visit: Yes Status: Acute Plan to address problem: Half-normal saline at the rate of 125 cc/h. Rocephin 2 g IV daily. We will recheck the lactic acid. (4) Acute renal failure Current Visit: No Status: Acute Plan to address problem: Avoid nephrotoxic drug. Renally dose medication. Half-normal saline at the rate of 125 cc/h. Recheck BMP in the morning (5) Hypertension Current Visit: Yes Status: Acute Plan to address problem: Losartan 50 mg p.o. daily. We will continue the home medication (6) Seizure Current Visit: Yes Status: Acute Plan to address problem: Stable. Keppra 500 mg p.o. twice daily. We will monitor the patient closely (7) CVA (cerebral vascular accident) Current Visit: Yes Status: Acute Plan to address problem: Stable. Aspirin 81 mg p.o. daily. Lipitor 40 mg p.o. daily. Outpatient follow-up with neurology (8) DVT prophylaxis Current Visit: No Status: Acute Plan to address problem: Heparin 5000 units subcu every 12 hours for DVT prophylaxis. Pepcid 20 mg p.o. twice daily for GI prophylaxis. Patient is a full code
[2021-11-04] MEDS ORDERED: DEXTROSE 10% *Hypoglycemia IV PRN (02:43)
[2021-11-04] MEDS ORDERED: SODIUM CHLORIDE 0.45% 1000 ML 1,000 ML IV SCH (03:00)
[2021-11-04] MEDS ORDERED: IPRATROPIUM/ALBUTEROL SULFATE 3 ML AMPUL.NEB IH SCH (08:00)
[2021-11-04 08:07] LABS: Eosinophils # (Auto) 0.1 K/mm3 (0.0-0.4); Eosinophils % (Auto) 1.5 % (0.0-4.3); Monocytes # (Auto) 1.1 K/mm3 (0.0-0.8); Monocytes % (Auto) 12.3 % (0.0-7.3)
[2021-11-04 08:26] LABS: BUN/Creatinine Ratio 21; Blood Urea Nitrogen 19 mg/dL (7-17); Hemolysis Index 14
[2021-11-04 08:47] LABS: Basophils % (Auto) 0.3 % (0.0-1.8); Hematocrit 35.6 % (30.3-42.9); Hemoglobin 12.1 gm/dl (10.1-14.3); Lymphocytes % (Auto) 44.6 % (13.4-35.0); Mean Corpuscular HGB Conc 34 % (30-34); Mean Corpuscular Volume 91 fl (79-97); Platelet Count 283 K/mm3 (140-440); Red Cell Distribution Width 12.8 % (13.2-15.2)
[2021-11-04] MEDS ORDERED: CYANOCOBALAMIN (VIT B-12) 1000 MCG TAB PO SCH (10:00)
[2021-11-04] MEDS ORDERED: FAMOTIDINE 10 MG TAB PO SCH (10:00)
[2021-11-04] MEDS ORDERED: FAMOTIDINE 20 MG/2 ML INJ IV SCH (10:00)
[2021-11-04] MEDS ORDERED: levETIRAcetam 500 MG TAB PO SCH (10:00)
[2021-11-04] MEDS ORDERED: ASPIRIN 81 MG TAB CHEW PO SCH (10:00)
[2021-11-04] MEDS ORDERED: LOSARTAN 50 MG TAB PO SCH (10:00)
[2021-11-04] MEDS ORDERED: HEPARIN 5,000 UNIT/1 ML VIAL SUB-Q SCH (10:00)
[2021-11-04] MEDS: INSULIN LISPRO 100 UNIT/ML SUB-Q SCH ×2 (11:12→11:38)
[2021-11-04 11:17] VITALS: BP 169/78
[2021-11-04] MEDS ORDERED: INSULIN REGULAR, HUMAN 100 UNITS/1 ML SUB-Q ONE (12:15)
--- NOTE | 2021-11-04 12:20 | Discharge Summary ---
Providers - Providers Date of Admission: 11/04/21 02:16 Date of discharge: 11/04/21 Attending physician: TAYA GERARDO MD 11/04/21 02:16 Consult to Dietitian/Nutrition [CONS] Routine Physician Instructions: Reason For Exam: Reason for Consult: Diet education Primary care physician: JADEN HOLM MD Hospitalization Reason for admission: Hyponatremia, lactic acidosis, NICOLE secondary to vasomotor nephropathy Condition: Fair Pertinent studies: Reviewed. Procedures: None. Hospital course: Patient is a 76-year-old female with past medical history of insulin-dependent type 2 diabetes mellitus, hypertension, seizure disorder, brain tumor status post resection complicated by right CVA complicated by a left-sided hemiparesis, and renal insufficiency who was brought into the emergency room by her daughter due to altered mental status and confusion. It was not exactly clear as to why a family member called 911. In the ED the patient was found to have a blood glucose of 538, lactic acid 4.30, bicarb 22, and anion gap 22. CT head n oncontrast was unremarkable. Patient was started on IV fluids insulin on IV fluids and insulin and was admitted for management of acute metabolic encephalopathy and hyperglycemia in the setting of insulin-dependent diabetes. With fluid resuscitation and insulin administration, the patient's lactic acidosis resolved and her blood glucose improved. The patient expresses being at her baseline, and her NICOLE also resolved. Patient is medically clear for discharge. Disposition: 01 HOME / SELF CARE / HOMELESS Final Discharge Diagnosis (Prints w/discharge instructions): Hyponatremia, lactic acidosis, NICOLE secondary to vasomotor nephropathy, insulin-dependent type 2 diabetes mellitus with hyperglycemia Time spent for discharge: 45 min Core Measure Documentation - Palliative Care Palliative Care/ Comfort Measures: Not Applicable - Core Measures Any of the following diagnoses?: none Exam - Constitutional Vitals: Temp Pulse Resp BP Pulse Ox 97.7 F 92 H 16 169/78 97 11/04/21 08:01 11/04/21 11:09 11/04/21 08:01 11/04/21 11:09 11/04/21 10:01 General appearance: Present: no acute distress, well-nourished - EENT Eyes: Present: PERRL, EOM intact ENT: hearing intact, clear oral mucosa, dentition normal - Neck Neck: Present: supple, normal ROM - Respiratory Respiratory effort: normal Respiratory: bilateral: CTA - Cardiovascular Rhythm: regular Heart Sounds: Present: S1 & S2 - Extremities Extremities: no ischemia, pulses intact, pulses symmetrical, No edema, normal temperature, normal color Peripheral Pulses: within normal limits - Abdominal General gastrointestinal: Present: soft, non-tender, non-distended, normal bowel sounds Female genitourinary: Present: deferred - Rectal Rectal Exam: deferred - Integumentary Integumentary: Present: clear, warm, dry - Musculoskeletal Musculoskeletal: left sided weakness - Psychiatric Psychiatric: appropriate mood/affect, cooperative - Neurologic Neurologic: CNII-XII intact, moves all extremities - Allied Health Allied health notes reviewed: nursing Plan Activity: no restrictions Diet: diabetic Additional Instructions: Patient is a 76-year-old female with past medical history of insulin-dependent type 2 diabetes mellitus, hypertension, seizure disorder, brain tumor status post resection complicated by right CVA complicated by a left-sided hemiparesis, and renal insufficiency who was brought into the emergency room by her daughter due to altered mental status and confusion. It was not exactly clear as to why a family member called 911. In the ED the patient was found to have a blood glucose of 538, lactic acid 4.30, bicarb 22, and anion gap 22. CT head noncontrast was unremarkable. Patient was started on IV fluids insulin on IV fluids and insulin and was admitted for management of acute metabolic encephalopathy and hyperglycemia in the setting of insulin- dependent diabetes. With fluid resuscitation and insulin administration, the patient's lactic acidosis resolved and her blood glucose improved. The patient expresses being at her baseline, and her NICOLE also resolved. Patient is medically clear for discharge. Care Plan Goals: Patient is medically clear for discharge. Assessment: Patient is a 76-year-old female with past medical history of insulin-dependent type 2 diabetes mellitus, hypertension, seizure disorder, brain tumor status post resection complicated by right CVA complicated by a left-sided hemiparesis, and renal insufficiency who was brought into the emergency room by her daughter due to altered mental status and confusion. It was not exactly clear as to why a family member called 911. In the ED the patient was found to have a blood glucose of 538, lactic acid 4.30, bicarb 22, and anion gap 22. CT head noncontrast was unremarkable. Patient was started on IV fluids insulin on IV fluids and insulin and was admitted for management of acute metabolic encephalopathy and hyperglycemia in the setting of insulin-dependent diabetes. With fluid resuscitation and insulin administration, the patient's lactic acidosis resolved and her blood glucose improved. The patient expresses being at her baseline, and her NICOLE also resolved. Patient is medically clear for discharge. Follow up with: JADEN HOLM MD [Primary Care Provider] - 3-5 Days
[2021-11-04] MEDS ORDERED: INSULIN GLARGINE 100 UNITS/ML SUB-Q SCH (22:00)
[2021-11-04] MEDS ORDERED: cefTRIAXone/NS 2 GM/100 ML 2 GM/100 ML BAG IV SCH ×2 (22:00)
--- NOTE | 2021-11-05 09:13 | Electrocardiograph Report ---
[facility] Test Date: 2021-11-03 Test Time: 23:20:56 Pat Name: ROSE APPIAH Department: Room: A372 1 Gender: F Manager Of Medical: KAYLA : 1945 Requested By: MARGARITA LI Order Number: [id number] Reading MD: Hank Gary Measurements Intervals [place] Rate: 87 P: TX: QRS: 22 QRSD: 94 T: 31 QT: 378 QTc: 455 Interpretive Statements NSR nonspecific st-t No previous ECG available for comparison Electronically Signed On 11-05-2021 9:13:15 EST by Hank Gary
== END 2021-11-04 14:50 | disposition home or self-care (01) ==
LOC: ED 22:03 → 3A 11-04 02:16 → INTOOBSV 11-04 02:16 → 3A 11-04 02:35
PROVIDERS: ADMIT Hospitalist; ATTEND Student in an Organized Health Care Education/Training Program
DX: G93.41 Metabolic encephalopathy (principal); E11.65 Type 2 diabetes mellitus with hyperglycemia; I63.9 Cerebral infarction, unspecified; N17.9 Acute kidney failure, unspecified; I10 Essential (primary) hypertension; E87.1 Hypo-osmolality and hyponatremia; R56.9 Unspecified convulsions; R41.0 Disorientation, unspecified; R29.700 NIHSS score 0; Z79.899 Other long term (current) drug therapy; Z98.890 Other specified postprocedural states; Z79.82 Long term (current) use of aspirin; Z79.4 Long term (current) use of insulin; Z87.442 Personal history of urinary calculi
CPT/HCPCS: 36415; 70450; 71045; 80048; 80053; 81001; 82140; 82550; 82805; 82962; 83735; 84443; 84484; 85025; 85610; 85730; 87040; 87086; 93005; 96361; 96365; 96372; 96375; 99291; G0378; J0696; J1644; J7030; 80320; J3490; Q0162; Q9967; G0480; J1815

== ENCOUNTER 2022-03-10 13:01 | Emergency (ER) | payer MEDICARE ==
[2022-03-10 13:39] VITALS: BP 168/78
[2022-03-10] MEDS ORDERED: SODIUM CHLORIDE 0.9% 1000 ML 1,000 ML IV ONE (13:47)
--- NOTE | 2022-03-10 14:51 | Emergency Department Report ---
ED General Adult HPI - General Chief complaint: Hyperglycemia Stated complaint: HYPERGLYCEMIA Time Seen by Provider: 03/10/22 14:49 Source: patient, EMS ( EMS documentation not available at time of chart dictation ), RN notes reviewed, old records reviewed Mode of arrival: Stretcher Limitations: Other (Patient is a poor historian) - History of Present Illness Initial comments: The patient was evaluated in the emergency department for symptoms described in the history of present illness. He/she was evaluated in the context of the global COVID-19 pandemic, which necessitated consideration that the patient might be at risk for infection with the virus that causes COVID-19. Institutional protocols and algorithms that pertain to the evaluation of p atients at risk for COVID-19 are in a state of rapid change based on information released by regulatory bodies including the CDC and federal and state organizations. These policies and algorithms were followed during the patient's care in the emergency department. Please note that these policies, procedures and recommendations changed on a rapid basis. This is a 77-year-old female. Her past medical history includes type 2 diabetes, hypertension, seizure disorder, history of brain tumor status postresection, left hemiparesis, renal insufficiency. She presents to the department today with a complaint of painless hyperglycemia for about a month. She has ran out of her insulin. She does not specifically recall what type of insulin she takes. She denies physical pain. She endorses urinary frequency and possible dysuria. She has a chronic cough. She follows with an outside practitioner by the name of Dinorah Polo. She reports that her prescriptions are typically called into [facility], [facility], or [facility]. -: week(s) Severity scale (0 -10): 0 Consistency: constant Improves with: none Worsens with: none - Related Data Home Medications Medication Instructions Recorded Confirmed Last Taken Aspirin [Aspirin BABY CHEW TAB] 81 mg PO QDAY 04/08/14 11/04/21 1 Day Ago ~11/03/21 Cholecalciferol Vit D3 [Vitamin D3 5,000 unit PO QDAY 04/08/14 11/04/21 1 Day Ago 1,000 UNIT TAB] ~11/03/21 Cyanocobalamin (Vitamin B-12) 5,000 mcg SL DAILY 04/08/14 11/04/21 01/20/19 [Vitamin B-12] Gabapentin 300 mg PO TID 04/08/14 11/04/21 1 Day Ago ~11/03/21 Losartan [Cozaar] 50 mg PO QDAY 04/08/14 11/04/21 01/20/19 09:00 levETIRAcetam [Keppra TAB] 500 mg PO BID 04/08/14 11/04/21 1 Day Ago ~11/03/21 AtorvaSTATin [Lipitor] 40 mg PO QDAY 04/26/16 11/04/21 1 Day Ago ~11/03/21 Previous Rx's Medication Instructions Recorded Last Taken Type Insulin Glargine [Lantus VIAL] 6 units SQ QHS #1 vial 01/21/19 1 Day Ago Rx ~11/03/21 Cyanocobalamin [Vitamin B-12] 5,000 mcg PO QDAY tablet 04/07/19 1 Day Ago Rx ~11/03/21 Lispro Insulin [HumaLOG] 0 unit SUB-Q AC units 04/07/19 1 Day Ago Rx ~11/03/21 Losartan [Cozaar] 50 mg PO QDAY tablet 04/07/19 1 Day Ago Rx ~11/03/21 guaiFENesin [Robitussin] 200 mg PO Q4H PRN oral.liqd 04/07/19 Unknown Rx Insulin Glargine [Lantus VIAL] 20 unit SUB-Q QAM #1 vial 03/10/22 Unknown Rx Insulin Lispro [Humalog Allen 6 unit SQ ACHS PRN #1 pen 03/10/22 Unknown Rx Kwikpen] Sulfamethoxazole/Trimethoprim 1 each PO BID #6 tab 03/10/22 Unknown Rx [Bactrim DS TAB] Allergies Allergy/AdvReac Type Severity Reaction Status Date / Time No Known Allergies Allergy Verified 03/10/22 13:39 ED Review of Systems ROS: Stated complaint: HYPERGLYCEMIA Other details as noted in HPI Constitutional: denies: fever Eyes: denies: eye discharge ENT: denies: congestion Respiratory: cough Cardiovascular: denies: chest pain Gastrointestinal: denies: abdominal pain Genitourinary: dysuria Musculoskeletal: denies: back pain Neurological: weakness (Generalized weakness) Psychiatric: anxiety ED Past Medical Hx - Past Medical History Hx Hypertension: Yes Hx CVA: Yes (2012, 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) Hx Congestive Heart Failure: No Hx Diabetes: Yes Hx Seizures: Yes Hx Kidney Stones: Yes Hx HIV: No - Surgical History Hx Cholecystectomy: Yes ([place] 1989) Additional Surgical History: Tumor removed from brain 2013 - Social History Smoking Status: Never Smoker - Medications Home Medications: Home Medications Medication Instructions Recorded Confirmed Last Taken Type Aspirin [Aspirin BABY CHEW TAB] 81 mg PO QDAY 04/08/14 11/04/21 1 Day Ago History ~11/03/21 Cholecalciferol Vit D3 [Vitamin D3 5,000 unit PO QDAY 04/08/14 11/04/21 1 Day Ago History 1,000 UNIT TAB] ~11/03/21 Cyanocobalamin (Vitamin B-12) 5,000 mcg SL DAILY 04/08/14 11/04/21 01/20/19 History [Vitamin B-12] Gabapentin 300 mg PO TID 04/08/14 11/04/21 1 Day Ago History ~11/03/21 Losartan [Cozaar] 50 mg PO QDAY 04/08/14 11/04/21 01/20/19 09:00 History levETIRAcetam [Keppra TAB] 500 mg PO BID 04/08/14 11/04/21 1 Day Ago History ~11/03/21 AtorvaSTATin [Lipitor] 40 mg PO QDAY 04/26/16 11/04/21 1 Day Ago History ~11/03/21 Insulin Glargine [Lantus VIAL] 6 units SQ QHS #1 vial 01/21/19 11/04/21 1 Day Ago Rx ~11/03/21 Cyanocobalamin [Vitamin B-12] 5,000 mcg PO QDAY tablet 04/07/19 11/04/21 1 Day Ago Rx ~11/03/21 Lispro Insulin [HumaLOG] 0 unit SUB-Q AC units 04/07/19 11/04/21 1 Day Ago Rx ~11/03/21 Losartan [Cozaar] 50 mg PO QDAY tablet 04/07/19 11/04/21 1 Day Ago Rx ~11/03/21 guaiFENesin [Robitussin] 200 mg PO Q4H PRN oral.liqd 04/07/19 11/04/21 Unknown Rx Insulin Glargine [Lantus VIAL] 20 unit SUB-Q QAM #1 vial 03/10/22 Unknown Rx Insulin Lispro [Humalog Allen 6 unit SQ ACHS PRN #1 pen 03/10/22 Unknown Rx Kwikpen] Sulfamethoxazole/Trimethoprim 1 each PO BID #6 tab 03/10/22 Unknown Rx [Bactrim DS TAB] ED Physical Exam - General Limitations: No Limitations, Other (Patient is a poor historian) General appearance: alert, in no apparent distress - Head Head exam: Present: atraumatic, normocephalic - Eye Eye exam: Present: normal appearance, EOMI. Absent: nystagmus - ENT ENT exam: Present: normal exam, normal orophraynx, mucous membranes moist, normal external ear exam - Neck Neck exam: Present: normal inspection, full ROM. Absent: tenderness, meningismus - Respiratory Respiratory exam: Present: normal lung sounds bilaterally. Absent: respiratory distress, wheezes, rales, rhonchi, stridor, decreased breath sounds - Cardiovascular Cardiovascular Exam: Present: regular rate, normal rhythm, normal heart sounds. Absent: bradycardia, tachycardia, irregular rhythm, systolic murmur, diastolic murmur, rubs, gallop - GI/Abdominal GI/Abdominal exam: Present: soft. Absent: distended, tenderness, guarding, rebound, rigid, pulsatile mass - Extremities Exam Extremities exam: Present: normal inspection, full ROM, normal capillary refill, other (2+ pulses noted in the bilateral upper and lower extremities. There is no palpable cord. negative Homans sign. Muscular compartments are soft. The pelvis is stable.). Absent: pedal edema, calf tenderness - Back Exam Back exam: Present: normal inspection. Absent: tenderness, CVA tenderness (R), CVA tenderness (L), paraspinal tenderness, vertebral tenderness - Neurological Exam Neurological exam: Present: alert, oriented X3, other (There is no facial droop. The tongue is midline. EOMI. Moving 4 extremities spontaneously. Sensation is intact to light touch in 4 extremities) - Psychiatric Psychiatric exam: Present: anxious - Skin Skin exam: Present: warm, dry, intact, normal color. Absent: rash ED Course Vital Signs 03/10/22 13:36 Temperature 98.8 F Pulse Rate 92 H Respiratory 18 Rate Blood Pressure 168/78 [Left] O2 Sat by Pulse 98 Oximetry - Reevaluation(s) Reevaluation #1: 03/10/22 17:16 Differential diagnosis, including but not limited to: Hyperglycemia, DKA, dehydration, hyperosmolar state, bronchitis, UTI, pneumonia, medication noncompliance Assessment and plan: 77-year-old female with a primary complaint of painless hyperglycemia. She is afebrile with reassuring vital signs and not encephalopathic. She is found to be hyperglycemic with pseudohyponatremia, without evidence of anion gap acidosis. Venous pH nonspecific. Patient placed NPO. Start fluids, start insulin. Recheck BMP, and venous pH in 2 hours. Reassess. Patient reassessed multiple times while on the stretcher, she is in no acute distress, speaking on her cell phone. Chest x-ray appears to be unremarkable. 03/10/22 20:02 Patient making multiple requests to be discharged. Repeat Accu-Chek is improved. Repeat basic metabolic panel is improved. Repeat venous pH within normal limits. Chest x-ray negative. UA suggest bacteriuria. Discharge with Lantus, lispro, Bactrim, instructions to follow-up with outpatient primary care. Patient observed in this department for hours without clinical decompensation. She is noted to be speaking on her cell phone multiple times, and in no acute distress My calculated anion gap at this time is 12 03/10/22 20:06 ED Medical Decision Making - Lab Data Result diagrams: 03/10/22 14:53 03/10/22 18:54 Vital Signs 03/10/22 13:36 Temperature 98.8 F Pulse Rate 92 H Respiratory 18 Rate Blood Pressure 168/78 [Left] O2 Sat by Pulse 98 Oximetry Lab Results 03/10/22 03/10/22 03/10/22 Range/Units 14:53 14:53 14:53 WBC 10.6 (4.5-11.0) K/mm3 RBC 4.00 (3.65-5.03) M/mm3 Hgb 12.4 (10.1-14.3) gm/dl Hct 37.6 (30.3-42.9) % MCV 94 (79-97) fl MCH 31 (28-32) pg MCHC 33 (30-34) % RDW 12.9 L (13.2-15.2) % Plt Count 271 (140-440) K/mm3 VBG pH 7.287 L (7.320-7.420) Sodium 132 L (137-145) mmol/L Potassium 4.8 (3.6-5.0) mmol/L Chloride 95.3 L (98-107) mmol/L Carbon Dioxide 27 (22-30) mmol/L Anion Gap 15 mmol/L BUN 27 H (7-17) mg/dL Creatinine 1.4 H (0.6-1.2) mg/dL Estimated GFR 44 ml/min BUN/Creatinine Ratio 19 % Glucose 488 H (65-100) mg/dL Calcium 9.2 (8.4-10.2) mg/dL Total Bilirubin 0.30 (0.1-1.2) mg/dL AST 13 (5-40) units/L ALT 13 (7-56) units/L Alkaline Phosphatase 151 H (35-129) units/L Total Protein 7.4 (6.3-8.2) g/dL Albumin 4.3 (3.9-5) g/dL Albumin/Globulin Ratio 1.4 % - Radiology Data Radiology results: report reviewed, image reviewed interpreted by me: 1 view x-ray of the chest is interpreted by myself, clear lungs, no infiltrate, no pneumothorax XR chest 1V ap INDICATION / CLINICAL INFORMATION: cough COMPARISON: November 03, 2021 FINDINGS: SUPPORT DEVICES: None. HEART / MEDIASTINUM: No significant abnormality. LUNGS / PLEURA: Lungs are clear. Costophrenic sulci are sharp. No pneumothorax. ADDITIONAL FINDINGS: No significant additional findings. IMPRESSION: 1. No acute findings. Signer Name: Asher Martinez MD Signed: 03/10/2022 4:24 PM Workstation Name: [id number] Critical Care Time: Yes Critical care time in (mins) excluding proc time.: 35 Critical care attestation.: If time is entered above; I have spent that time in minutes in the direct care of this critically ill patient, excluding procedure time. ED Disposition Clinical Impression: Hyperglycemia, Cough, Bacteriuria with pyuria Disposition: HOME / SELF CARE / HOMELESS Is pt being admited?: No Does the pt Need Aspirin: No Condition: Good Additional Instructions: Please make certain to consume a diabetic appropriate diet. Patient will receive a 1 month prescription for Lantus, 25 units each morning, and lispro, 6 units before each meal, and sliding scale insulin. Urinalysis suggested urinary tract infection. Take the Bactrim as prescribed for presumed UTI. Please follow-up with a primary care doctor within the next 5 to 7 days. Please return to the emergency room right away with new pain, worsened pain, migration of pain, projectile vomiting, change in mental status, confusion, inab ility tolerate liquid feeds, new, worsened or different symptoms not present on the initial emergency room evaluation Do not combine the insulin medications that are prescribed today with diabetic m edications at home, until cleared to do so by your primary care doctor. Please continue current blood pressure medications Prescriptions: Sulfamethoxazole/Trimethoprim [Bactrim DS TAB] 1 each PO BID #6 tab Insulin Lispro [Humalog Allen Kwikpen] 6 unit SQ ACHS PRN #1 pen PRN Reason: Hyperglycemia Insulin Glargine [Lantus VIAL] 20 unit SUB-Q QAM #1 vial Referrals: [facility] [Provider Group] - 3-[address] [facility] [Provider Group] - 3-5 Days
[2022-03-10 15:25] LABS: Hematocrit 37.6 % (30.3-42.9); Hemoglobin 12.4 gm/dl (10.1-14.3); Mean Corpuscular HGB Conc 33 % (30-34); Mean Corpuscular Volume 94 fl (79-97); Platelet Count 271 K/mm3 (140-440); Red Cell Distribution Width 12.9 % (13.2-15.2)
[2022-03-10 15:35] LABS: Albumin 4.3 g/dL (3.9-5); Calcium 9.2 mg/dL (8.4-10.2)
[2022-03-10] MEDS ORDERED: INSULIN REGULAR, HUMAN 100 UNITS/1 ML IV ONE (16:31)
--- NOTE | 2022-03-10 17:29 | XRay Report ---
XR chest 1V ap INDICATION / CLINICAL INFORMATION: cough COMPARISON: November 03, 2021 FINDINGS: SUPPORT DEVICES: None. HEART / MEDIASTINUM: No significant abnormality. LUNGS / PLEURA: Lungs are clear. Costophrenic sulci are sharp. No pneumothorax. ADDITIONAL FINDINGS: No significant additional findings. IMPRESSION: 1. No acute findings. Signer Name: Asher Martinez MD Signed: 03/10/2022 5:24 PM Workstation Name: [id number]
[2022-03-10 18:18] LABS: Bilirubin,Urine NEG (Negative); Blood,Urine NEG (Negative); Color,Urine Straw (Yellow); Protein,Urine <15 mg/dL mg/dL (Negative); Urobilinogen,Urine < 2.0 mg/dL (<2.0)
[2022-03-10 18:29] LABS: Bacteria,Urine 1+ /HPF (Negative)
[2022-03-10 19:59] LABS: Calcium 9.5 mg/dL (8.4-10.2)
== END 2022-03-11 06:51 | disposition home or self-care (01) ==
LOC: ED 13:01
DX: E11.65 Type 2 diabetes mellitus with hyperglycemia (principal); R05.9 Cough, unspecified; R82.71 Bacteriuria; R82.81 Pyuria; I10 Essential (primary) hypertension; R56.9 Unspecified convulsions; N20.0 Calculus of kidney; Z86.73 Personal history of transient ischemic attack (TIA), and cerebral infarction without residual deficits; Z90.49 Acquired absence of other specified parts of digestive tract; Z79.899 Other long term (current) drug therapy
CPT/HCPCS: 36415; 71045; 80048; 80053; 81001; 82805; 82962; 85027; 87076; 87086; 87186; 96361; 96374; 99284; J7030; Q9967; J1815